=== PATIENT | female | born 1955 | race Caucasian/White ===

== ENCOUNTER 2020-04-06 10:09 | Outpatient (REF) | payer OTHER, SELFPAY | END 2020-04-06 10:10 | disposition home or self-care (01) | LOC: HO.WFDLDS 10:09 | PROVIDERS: Visit Provider Internal Medicine | DX: Z20.828 Contact with and (suspected) exposure to other viral communicable diseases (principal) | CPT/HCPCS: 87635 ==

== ENCOUNTER 2020-04-18 11:26 | Outpatient (REF) | payer OTHER, SELFPAY ==
--- NOTE | 2020-04-18 | MM_ITS ---
EXAMINATION: MM SCREENING DIGITAL BREAST TOMOSYNTHESIS, BILATERAL CLINICAL INFORMATION: Screening. Asymptomatic. The lifetime risk of breast cancer based on the Tyrer-Cuzick Model is 5%. COMPARISON: Mammography: 10/20/2015, 10/23/2014 TECHNIQUE: Digital breast tomosynthesis is performed in both the craniocaudal and mediolateral oblique views along with computer-aided detection (CAD). Synthesized 2D images are generated from the tomosynthesis. FINDINGS: The breasts are almost entirely fatty (ACR BI-RADS breast composition Category a). There are no significant masses, abnormal calcifications, or other abnormalities. There are incidental ductal secretory calcifications anterior right breast and early ductal secretory calcifications anterior left breast. The axilla and skin contours are unremarkable. MM/MM tomosynthesis screening BI IMPRESSION: No mammographic evidence of malignancy. ASSESSMENT: BI-RADS 2: Benign RECOMMENDATION: Routine annual mammography screening. This patient's information was entered into a reminder system with a target due date for their next mammogram.
[2020-04-18 13:50] LABS: MANUAL DIFF FLAG NO
[2020-04-18 13:54] LABS: Basophils Percent Auto 0.3 % (0-2); Eosinophils Absolute Auto 0.1 X10*3/uL (0.0-0.4); Eosinophils Percent Auto 2.2 % (0-4); Hematocrit 40.9 % (37-47); Hemoglobin 13.9 g/dl (12.0-16.0); Imm Gran Abs Auto 0.01 X10*3/uL (0.00-0.03); Imm Gran Pct Auto 0.2 % (0.0-0.4); Lymphocytes Absolute Auto 2.6 X10*3/uL (1.2-4.9); Lymphocytes Percent Auto 44.3 % (20-40); Mean Corpuscular Hemoglobin 31.7 pg (27.0-33.0); Mean Corpuscular Volume 93.4 fL (80-98); Mean Platelet Volume 10.6 fL (9.4-12.3); Monocytes Absolute Auto 0.6 X10*3/uL (0.1-1.2); Monocytes Percent Auto 9.3 % (2-11); Neutrophils Absolute Auto 2.6 X10*3/uL (2.0-8.3); Neutrophils Percent Auto 43.7 % (45-73); Platelet Count 191 X10*3/uL (160-400); Red Blood Count 4.38 X10*6/uL (4.20-5.50); Red Cell Distribution Width 11.9 % (11.0-16.0); White Blood Count 5.9 X10*3/uL (4.8-10.8)
[2020-04-18 14:37] LABS: Estimated Average Glucose 108 mg/dL; Hemoglobin A1c % 5.4 %
[2020-04-18 14:43] LABS: Alanine Aminotransferase 62 U/L (0-31); Albumin Level 4.2 g/dL (3.5-5.0); Alkaline Phosphatase 64 U/L (39-117); Aspartate Amino Transferase 34 U/L (5-31); Bilirubin Direct < 0.2 mg/dL (0.0-0.5); Bilirubin Total 0.3 mg/dL (0.0-1.0); Total Protein 6.9 g/dL (6.5-8.0)
[2020-04-18 14:57] LABS: Valproate 63.2 mcg/mL (50.0-100.0)
== END 2020-04-18 11:27 | disposition home or self-care (01) ==
LOC: HO.MAMMO 11:26
PROVIDERS: PCP Hospitalist; Referring Provider Nurse Practitioner Psychiatric/Mental Health; Visit Provider Hospitalist
DX: Z12.31 Encounter for screening mammogram for malignant neoplasm of breast (principal); Z79.899 Other long term (current) drug therapy
CPT/HCPCS: 36415; 77063; 77067; 80076; 80164; 83036; 85025

== ENCOUNTER 2020-05-02 10:29 | Outpatient (REF) | payer OTHER, SELFPAY | END 2020-05-02 10:30 | disposition home or self-care (01) | LOC: HO.WFDLDS 10:29 | PROVIDERS: Visit Provider Internal Medicine | DX: Z20.828 Contact with and (suspected) exposure to other viral communicable diseases (principal) | CPT/HCPCS: C9803; U0003 ==

== ENCOUNTER 2020-05-11 10:55 | Outpatient (REF) | payer OTHER, SELFPAY ==
--- NOTE | 2020-05-11 10:55 | XR_ITS ---
EXAMINATION: XR KNEE AP STANDING CLINICAL INFORMATION: Knee pain COMPARISON: October 21, 2019 and October 27, 2018 as well as May 15, 2017 TECHNIQUE: AP bilateral standing view of the knees was obtained. FINDINGS: There is stable mild to moderate narrowing of the medial joint space compartments bilaterally. No acute fracture or dislocation is evident on this single film. XR/XR knee standing BI IMPRESSION: Mild to moderate narrowing medial joint space compartments bilaterally. No significant change from study of May 15, 2017
== END 2020-05-11 10:56 | disposition home or self-care (01) ==
LOC: HO.HOSX 10:55
PROVIDERS: Visit Provider Orthopaedic Surgery
DX: M25.562 Pain in left knee (principal); M25.561 Pain in right knee; S83.242A Other tear of medial meniscus, current injury, left knee, initial encounter; W01.198A Fall on same level from slipping, tripping and stumbling with subsequent striking against other object, initial encounter; Y93.9 Activity, unspecified; Y92.007 Garden or yard of unspecified non-institutional (private) residence as the place of occurrence of the external cause; Y99.8 Other external cause status
CPT/HCPCS: 73565

== ENCOUNTER 2020-08-01 12:37 | Outpatient (REF) | payer OTHER, SELFPAY | END 2020-08-01 12:38 | disposition home or self-care (01) | LOC: HO.LAB 12:37 | PROVIDERS: Visit Provider Hospitalist | DX: N39.0 Urinary tract infection, site not specified (principal); R30.0 Dysuria | CPT/HCPCS: 87086 ==

== ENCOUNTER 2021-05-24 11:40 | Outpatient (REF) | payer MEDICARE, SELFPAY ==
[2021-05-24 14:04] LABS: Hematocrit 41.1 % (37.0-47.0); Hemoglobin 13.7 g/dl (12.0-16.0); Mean Corpuscular HGB Conc 33.3 g/dl (31.0-35.0); Mean Corpuscular Hemoglobin 30.9 pg (27.0-33.0); Mean Corpuscular Volume 92.8 fL (80.0-98.0); Mean Platelet Volume 10.5 fL (9.4-12.3); Platelet Count 197 X10*3/uL (160-400); Red Blood Count 4.43 X10*6/uL (4.20-5.50); White Blood Count 5.2 X10*3/uL (4.8-10.8)
[2021-05-24 14:30] LABS: Alanine Aminotransferase 46 U/L (0-31); Albumin Level 4.2 g/dL (3.5-5.0); Alkaline Phosphatase 68 U/L (39-117); Anion Gap 12 (12-20); Aspartate Amino Transferase 31 U/L (5-31); Bilirubin Total 0.5 mg/dL (0.0-1.0); Blood Urea Nitrogen 15 mg/dL (9-16); Calcium 9.2 mg/dL (8.4-10.2); Carbon Dioxide 29 mmol/L (22-29); Chloride 104 mmol/L (96-108); Cholesterol 242 mg/dL; Estimated Glomerular Filt Rate 60; Glucose Fasting 99 mg/dL (60-99); HDL Cholesterol 46 mg/dL; LDL Cholesterol Calculated 167 mg/dl; Potassium 4.7 mmol/L (3.3-5.1); Sodium 140 mmol/L (135-145); Total Protein 6.8 g/dL (6.5-8.0); Triglycerides 145 mg/dL
[2021-05-24 14:50] LABS: TSH reflex Free T4 1.21 uIU/mL (0.32-4.0)
== END 2021-05-24 11:41 | disposition home or self-care (01) ==
LOC: HO.WFDLDS 11:40
PROVIDERS: Absent Provider Internal Medicine; Visit Provider Hospitalist
DX: Z00.01 Encounter for general adult medical examination with abnormal findings (principal); Z20.822 Contact with and (suspected) exposure to COVID-19
CPT/HCPCS: 36415; 80053; 80061; 84443; 85027; C9803; U0003; U0005

== ENCOUNTER 2021-07-24 10:40 | Outpatient (REF) | payer MEDICARE, SELFPAY ==
[2021-07-24 13:43] LABS: MANUAL DIFF FLAG NO
[2021-07-24 13:47] LABS: Basophils Percent Auto 0.6 % (0-2); Eosinophils Absolute Auto 0.1 X10*3/uL (0.0-0.4); Eosinophils Percent Auto 2.5 % (0-4); Hematocrit 43.2 % (37.0-47.0); Hemoglobin 14.3 g/dl (12.0-16.0); Lymphocytes Absolute Auto 2.3 X10*3/uL (1.2-4.9); Mean Corpuscular HGB Conc 33.1 g/dl (31.0-35.0); Mean Corpuscular Volume 93.7 fL (80.0-98.0); Mean Platelet Volume 10.4 fL (9.4-12.3); Monocytes Absolute Auto 0.4 X10*3/uL (0.1-1.2); Monocytes Percent Auto 8.8 % (2-11); Neutrophils Percent Auto 40.1 % (45-73); Platelet Count 191 X10*3/uL (160-400); Red Blood Count 4.61 X10*6/uL (4.20-5.50); Red Cell Distribution Width 12.1 % (11.0-16.0); White Blood Count 4.9 X10*3/uL (4.8-10.8)
[2021-07-24 13:57] LABS: Alanine Aminotransferase 42 U/L (0-31); Albumin Level 4.4 g/dL (3.5-5.0); Alkaline Phosphatase 60 U/L (39-117); Anion Gap 12 (12-20); Aspartate Amino Transferase 30 U/L (5-31); Bilirubin Total 0.4 mg/dL (0.0-1.0); Blood Urea Nitrogen 21 mg/dL (9-16); Calcium 9.6 mg/dL (8.4-10.2); Carbon Dioxide 31 mmol/L (22-29); Chloride 104 mmol/L (96-108); Estimated Glomerular Filt Rate > 60; Glucose Random 106 mg/dL (60-115); Potassium 4.7 mmol/L (3.3-5.1); Sodium 142 mmol/L (135-145); Total Protein 7.3 g/dL (6.5-8.0)
[2021-07-24 14:10] LABS: Estimated Average Glucose 111 mg/dL; Hemoglobin A1c % 5.5 %
[2021-07-24 14:30] LABS: Valproate 73.2 mcg/mL (50.0-100.0)
== END 2021-07-24 10:41 | disposition home or self-care (01) ==
LOC: HO.WFDLDS 10:40
PROVIDERS: Visit Provider Nurse Practitioner Psychiatric/Mental Health
DX: Z79.899 Other long term (current) drug therapy (principal)
CPT/HCPCS: 36415; 80053; 80164; 83036; 85025

== ENCOUNTER 2021-09-14 08:00 | Outpatient (RCR) | payer MEDICARE, SELFPAY ==
[2021-09-07 09:04] VITALS: BP 122/78
== END 2022-05-06 13:36 | disposition home or self-care (01) ==
LOC: HO.PT 08:00
PROVIDERS: PCP Hospitalist; Visit Provider Hospitalist
DX: H81.13 Benign paroxysmal vertigo, bilateral (principal)
CPT/HCPCS: 95992; 97161; 97535

== ENCOUNTER 2022-02-27 11:00 | Outpatient (REF) | payer MEDICARE, SELFPAY ==
--- NOTE | ~2022-02-27 | XR_ITS ---
EXAMINATION: XR FOREARM AND HAND AND WRIST, RIGHT CLINICAL INFORMATION: Pain. COMPARISON: None. TECHNIQUE: AP and lateral views of the right forearm were obtained. 4 views of the right hand and wrist. FINDINGS: There is no evidence of acute fracture or dislocation of the right forearm. There is some soft tissue swelling seen about the dorsum of the ulna. No right elbow effusion is identified. There is no evidence of acute fracture or dislocation of the right wrist. Right wrist joint spaces are maintained. No destructive bony lesions are identified. There is no evidence of acute fracture or dislocation of the right hand. Right hand joints are maintained. There is a 2 mm bony density seen about the ulnar aspect of the 2nd distal interphalangeal joint, likely related to previous trauma. XR/XR hand wrist RT IMPRESSION: No evidence of acute fracture or dislocation of the right forearm, wrist, or hand.
--- NOTE | ~2022-02-27 | XR_ITS ---
EXAMINATION: XR FOREARM AND HAND AND WRIST, RIGHT CLINICAL INFORMATION: Pain. COMPARISON: None. TECHNIQUE: AP and lateral views of the right forearm were obtained. 4 views of the right hand and wrist. FINDINGS: There is no evidence of acute fracture or dislocation of the right forearm. There is some soft tissue swelling seen about the dorsum of the ulna. No right elbow effusion is identified. There is no evidence of acute fracture or dislocation of the right wrist. Right wrist joint spaces are maintained. No destructive bony lesions are identified. There is no evidence of acute fracture or dislocation of the right hand. Right hand joints are maintained. There is a 2 mm bony density seen about the ulnar aspect of the 2nd distal interphalangeal joint, likely related to previous trauma. XR/XR forearm RT 2V IMPRESSION: No evidence of acute fracture or dislocation of the right forearm, wrist, or hand.
== END 2022-02-27 11:01 | disposition home or self-care (01) ==
LOC: HO.XRAY 11:00
PROVIDERS: PCP Hospitalist; Visit Provider Hospitalist
DX: M79.631 Pain in right forearm (principal); M25.531 Pain in right wrist; W19.XXXA Unspecified fall, initial encounter
CPT/HCPCS: 73090; 73110; 73130

== ENCOUNTER 2022-07-31 11:18 | Outpatient (REF) | payer MEDICARE, SELFPAY ==
[2022-07-31 14:33] LABS: Appearance Urine Clear; Color Urine Yellow; Glucose Urine UA Negative (Negative); Leukocyte Esterase Urine Small (1+) (Negative); Nitrite Urine Negative (Negative); Specific Gravity - Urine <= 1.005 (1.005-1.025); UMIC TRIGGER UA YES; Urine Blood Negative (Negative); Urine Ketones Negative (Negative); Urine Protein Negative (Neg-Trace)
[2022-07-31 14:45] LABS: Bacteria Urine None Seen (None Seen); Hyaline Casts Urine 0-2 /LPF (0-2); RBC Urine 0-2 /HPF (0-2); WBC Urine 0-5 /HPF (0-5)
[2022-07-31 14:51] LABS: Hematocrit 43.1 % (37.0-47.0); Hemoglobin 14.4 g/dl (12.0-16.0); Mean Corpuscular HGB Conc 33.4 g/dl (31.0-35.0); Mean Corpuscular Hemoglobin 31.2 pg (27.0-33.0); Mean Corpuscular Volume 93.5 fL (80.0-98.0); Platelet Count 186 X10*3/uL (160-400); Red Blood Count 4.61 X10*6/uL (4.20-5.50); Red Cell Distribution Width 12.4 % (11.0-16.0); White Blood Count 6.1 X10*3/uL (4.8-10.8)
[2022-07-31 15:19] LABS: Alanine Aminotransferase 50 U/L (0-31); Albumin Level 4.3 g/dL (3.5-5.0); Alkaline Phosphatase 64 U/L (39-117); Anion Gap 13 (12-20); Aspartate Amino Transferase 33 U/L (5-31); Bilirubin Total 0.5 mg/dL (0.0-1.0); Blood Urea Nitrogen 13 mg/dL (9-16); Calcium 9.5 mg/dL (8.4-10.2); Carbon Dioxide 31 mmol/L (22-29); Chloride 102 mmol/L (96-108); Cholesterol 274 mg/dL; Estimated Glomerular Filt Rate > 60; Glucose Fasting 94 mg/dL (60-99); HDL Cholesterol 50 mg/dL; LDL Cholesterol Calculated 186 mg/dl; Sodium 141 mmol/L (135-145); Total Protein 7.2 g/dL (6.5-8.0); Triglycerides 192 mg/dL
[2022-07-31 15:27] LABS: TSH reflex Free T4 1.39 uIU/mL (0.32-4.0)
[2022-07-31 15:31] LABS: Valproate 81.5 mcg/mL (50.0-100.0)
[2022-08-02 08:24] LABS: CA-125 8 U/mL (<35)
== END 2022-07-31 11:19 | disposition home or self-care (01) ==
LOC: HO.WFDLDS 11:18
PROVIDERS: Visit Provider Hospitalist
DX: Z00.00 Encounter for general adult medical examination without abnormal findings (principal); N95.0 Postmenopausal bleeding; Z79.899 Other long term (current) drug therapy
CPT/HCPCS: 36415; 80053; 80061; 80164; 81001; 84443; 85027; 86304

== ENCOUNTER 2023-07-11 09:16 | Outpatient (AMB) | payer MEDICARE, SELFPAY ==
--- NOTE | 2023-07-11 09:17 | MHC.OFFWIV ---
Intake Vital Signs 07/11/23 09:18 Height 5 ft 4 in Weight 259 lb 6 oz BMI 44.5 BP 122/72 Blood Pressure Location Lt brachial Position Sitting Pulse 80 Pulse Source Pulse Oximeter Temp 97.6 F Temp Source Oral Pulse Oximetry (%) 94 Intake Visit Reasons: EP Work clearance/had the flu Intake Note: pt is here for c/o fatigue and not feeling 100%, pt stated she had the flu and work note to go back to work for friday Patient Tobacco Use Status: Never used Tobacco Allergies prochlorperazine [From COMPAZINE] Allergy (Severe, Verified 07/11/23 09:19) THROAT SWELLS benztropine [From COGENTIN] Allergy (Intermediate, Verified 07/11/23 09:19) RASH glucosamine [GLUCOSAMINE] Allergy (Intermediate, Verified 07/11/23 09:19) RASH latex [LATEX] Allergy (Intermediate, Verified 07/11/23 09:19) RED RASH,ITCHINESS Adhesive Bandages Allergy (Intermediate, Uncoded 06/26/23 14:27) rash Do you need a note to return to daycare/school/sports/work: Yes HPI HPI Comments History of Present Illness Details 68 y/o female presents to walk in clinic today for work clearance. Pt had Influenza. Reports no fevers for 72 hours. Denies any Respiratory symptoms. Reports some mild dizziness and fatigue. PFSH Medical History Lumbar arthropathy Internal derangement of left knee Primary osteoarthritis of knees, bilateral Internal derangement of right knee Cholelithiasis Surgical History History of bilateral cataract extraction History of laparoscopic cholecystectomy LAP-BAND surgery status History of section Family History Father COPD (chronic obstructive pulmonary disease) Diabetes Kidney problem Mother CVD (cardiovascular disease) Son Depression H/O ETOH abuse Drug addiction Other Mental health disorder Substance use disorder Social History Housing: House Alcohol intake: current Alcohol intake frequency: holidays/special occasions only Patient Tobacco Use Status: Never used Tobacco e-Cigarette/Vaping Use: Never Used Second Hand Smoke Exposure: No service: No Current occupational status: unemployed Current occupation: right handed Current occupational exposures/hazards: No Cognitive needs: No Hearing needs: No Vision needs: No Review of Systems Const All systems reviewed & are unremarkable except as noted in HPI and below Physical Exam Vital Signs: Last Vital Signs Temp 97.6 F 07/11/23 09:18 Pulse 80 07/11/23 09:18 BP 122/72 07/11/23 09:18 Pulse Ox 94 07/11/23 09:18 BMI result Body Mass Index 44.5 Const General: comfortable and no acute distress HEENT Head: Yes normocephalic Ears: external ears normal and TM's normal bilaterally General nose exam: Normal nasal mucous membranes and turbinates present and No nasal discharge present Face and sinus: Yes sinuses nontender Mouth: oropharynx normal and moist mucous membranes Throat: Yes posterior oropharynx normal Resp Effort & Inspection: normal respiratory effort Auscultation: clear to auscultation bilaterally Cardio Rate: regular rate Rhythm: regular rhythm Assessment & Plan Assessment & Plan (1) Encounter for examination and observation for other specified reasons: Code(s): Z04.89 - Encounter for examination and observation for other specified reasons Plan: Per ROS today patient is cleared to return to work with no restrictions. Coding Level of Care Code Est Pt Level 2 (07807) Diagnoses Encounter for examination and observation for other specified reasons Z04.89 Time Spent (min) 10
[2023-07-11 09:18] VITALS: BP 122/72; PULSE 80; TEMP 36.4; O2SAT 94; BMI 44.5
== END 2023-07-11 09:54 | disposition home or self-care (01) ==
PROVIDERS: PCP Family Medicine; Visit Provider Nurse Practitioner Family
DX: R53.83 Other fatigue (principal); Z04.89 Encounter for examination and observation for other specified reasons
CPT/HCPCS: 99212

== ENCOUNTER 2023-07-11 09:31 | Outpatient (REF) | payer MEDICARE, SELFPAY ==
--- NOTE | ~2023-07-11 | XR_ITS ---
EXAMINATION: XR HIP, LEFT CLINICAL INFORMATION: Pain. COMPARISON: None available. TECHNIQUE: AP and frog-leg lateral views of the left hip. FINDINGS: No fracture. Alignment is anatomic. Hip joint space is maintained. Soft tissues are unremarkable. XR/XR hip LT min 2V IMPRESSION: Normal left hip.
[2023-07-11 13:08] LABS: MANUAL DIFF FLAG NO
[2023-07-11 13:40] LABS: Basophils Percent Auto 0.7 % (0-2); Eosinophils Absolute Auto 0.1 X10*3/uL (0.0-0.4); Eosinophils Percent Auto 2.4 % (0-4); Hematocrit 42.9 % (37.0-47.0); Hemoglobin 14.6 g/dl (12.0-16.0); Imm Gran Abs Auto 0.01 X10*3/uL (0.00-0.03); Imm Gran Pct Auto 0.2 % (0.0-0.4); Lymphocytes Absolute Auto 2.8 X10*3/uL (1.2-4.9); Lymphocytes Percent Auto 51.6 % (20-40); Mean Corpuscular Hemoglobin 31.2 pg (27.0-33.0); Mean Corpuscular Volume 91.7 fL (80.0-98.0); Mean Platelet Volume 10.2 fL (9.4-12.3); Monocytes Absolute Auto 0.5 X10*3/uL (0.1-1.2); Monocytes Percent Auto 9.6 % (2-11); Neutrophils Absolute Auto 1.9 x10*3/uL (2.0-8.3); Neutrophils Percent Auto 35.5 % (45-73); Platelet Count 222 X10*3/uL (160-400); Red Blood Count 4.68 X10*6/uL (4.20-5.50); Red Cell Distribution Width 12.2 % (11.0-16.0); White Blood Count 5.4 X10*3/uL (4.8-10.8)
[2023-07-11 13:53] LABS: Appearance Urine Clear; Color Urine Yellow; Glucose Urine UA Negative (Negative); Leukocyte Esterase Urine Negative (Negative); Nitrite Urine Negative (Negative); UMIC TRIGGER UA YES; Urine Blood Small (1+) (Negative); Urine Ketones Negative (Negative); Urine Protein Negative (Neg-Trace)
[2023-07-11 14:02] LABS: Bacteria Urine None Seen (None Seen); Hyaline Casts Urine 0-2 /LPF (0-2); WBC Urine 0-5 /HPF (0-5)
[2023-07-11 14:22] LABS: Alanine Aminotransferase 68 U/L (0-31); Alkaline Phosphatase 65 U/L (39-117); Anion Gap 12 (12-20); Aspartate Amino Transferase 40 U/L (5-31); Bilirubin Total 0.4 mg/dL (0.0-1.0); Blood Urea Nitrogen 13 mg/dL (9-16); Calcium 9.2 mg/dL (8.4-10.2); Carbon Dioxide 28 mmol/L (22-29); Chloride 104 mmol/L (96-108); Cholesterol 232 mg/dL (<200); Estimated Glomerular Filt Rate > 60; Glucose Fasting 97 mg/dL (60-99); HDL Cholesterol 44 mg/dL (>40); LDL Cholesterol Calculated 163 mg/dL (<100); Potassium 4.3 mmol/L (3.3-5.1); Sodium 140 mmol/L (135-145); TSH reflex Free T4 1.57 uIU/mL (0.32-4.0); Total Protein 7.1 g/dL (6.5-8.0); Triglycerides 129 mg/dL (<150)
[2023-07-11 14:31] LABS: Erythrocyte Sedimentation Rate 6 MM/HR (0-20)
[2023-07-11 15:18] LABS: Creatinine Urine 152.28 mg/dL; Microalbum/Creatinine Ratio Ur 5.2 ug/mg cr (<30)
== END 2023-07-11 09:32 | disposition home or self-care (01) ==
LOC: HO.HMGCX 09:31
PROVIDERS: PCP Family Medicine; Visit Provider Family Medicine
DX: M25.552 Pain in left hip (principal); I10 Essential (primary) hypertension; Z00.00 Encounter for general adult medical examination without abnormal findings
CPT/HCPCS: 36415; 73502; 80053; 80061; 81001; 81003; 82043; 82570; 84443; 85025; 85652

== ENCOUNTER 2023-08-21 11:36 | Outpatient (AMB) | payer MEDICARE, SELFPAY ==
[2023-08-21 11:38] VITALS: BP 134/80; BMI 44.6
--- NOTE | 2023-08-21 11:38 | A.OFFVIS_ITS ---
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 (Sarah) Allergies prochlorperazine [From COMPAZINE] Allergy (Severe, Verified 08/21/23 11:41) THROAT SWELLS benztropine [From COGENTIN] Allergy (Intermediate, Verified 08/21/23 11:41) RASH glucosamine [GLUCOSAMINE] Allergy (Intermediate, Verified 08/21/23 11:41) RASH latex [LATEX] Allergy (Intermediate, Verified 08/21/23 11:41) RED RASH,ITCHINESS Adhesive Bandages Allergy (Intermediate, Uncoded 08/21/23 11:41) rash Is last menstrual period known: No Post menopausal: Yes Patient : No HPI HPI Comments History of Present Illness Details Presenting with history of postmenopausal bleeding initially started in 06/27 the patient had an ultrasound endometrial stripe was 1 cm, there was no no follow-up afterwards. The bleeding stopped for 2 years and over the last 3 years has been recurrent according to the patient Last co testing was in 05/26 was negative PFSH Medical History (Updated 08/21/23 @ 12:10 by Nic Doran MD) Dysplasia of cervix, low grade (EYAD 1) Hx of ectopic Lumbar arthropathy Internal derangement of left knee Primary osteoarthritis of knees, bilateral Internal derangement of right knee Cholelithiasis Surgical History (Updated 08/21/23 @ 11:43 by BHAVNA Partida) Hx of unilateral salpingectomy History of bilateral cataract extraction History of laparoscopic cholecystectomy LAP-BAND surgery status History of section Family History Father COPD (chronic obstructive pulmonary disease) Diabetes Kidney problem Mother CVD (cardiovascular disease) Son Depression H/O ETOH abuse Drug addiction Other Mental health disorder Substance use disorder Social History Housing: House Alcohol intake: current Alcohol intake frequency: holidays/special occasions only Patient Tobacco Use Status: Never used Tobacco e-Cigarette/Vaping Use: Never Used Second Hand Smoke Exposure: No Patient : No service: No Current occupational status: unemployed Current occupation: right handed Current occupational exposures/hazards: No Cognitive needs: No Hearing needs: No Vision needs: No Female Reproductive History Menstrual Age of Menarche: 13 control method: none Total pregnancies: 4 Full term: 2 Number of Living Children: 2 Ectopics: 2 Date of last pap smear: 05/12/18 (negative) Date of Mammogram: 04/18/20 Review of Systems Const All systems reviewed & are unremarkable except as noted in HPI and below Physical Exam Vital Signs: Last Vital Signs BP 134/80 08/21/23 11:38 BMI result Body Mass Index 44.6 General: Yes no CVA tenderness External Female Exam: normal external appearance and normal appearance of the urethra Speculum Exam - Vagina: normal appearance of the vagina, normal palpation, no lesions and no masses Speculum Exam - Cervix: normal appearance of the cervix, normal palpation, no lesions, no masses and nontender Bimanual exam- vagina & uterus: normal bimanual exam, normal palpation, uterine size normal, normal palpation, uterine shape normal, No Cervical tenderness present and non-tender Bimanual Exam- Adnexa, other: normal adnexae Back/Spine/Pelvis Back: no CVA tenderness Office Procedures Endometrial Biopsy Details: The patient was counseled regarding the indication and benefits of endometrial sampling to rule out endometrial pathology including not limited to endometrial hyperplasia or endometrial cancer and others; The alternatives (Either do nothing vs. hysteroscopy D&C) & the risks were discussed with the patient including but not limited: pain, uterine perforation, bleeding, infection, possible injury to bladder, bowel, ureter, possible need for blood transfusion with all its possible risks. The patient verbalized understanding all questions answered and signed consent. The patient was placed into the dorsal lithotomy position; a speculum was inserted in the vagina. Using aseptic technique for the procedure, the cervix was cleansed with Betadine. The anterior lip of the cervix was grasped with a single tooth tenaculum. The uterus was sounded to 7 cm with a 4 mm Pipelle was used. Tissues samples were obtained and placed in formalin, in a patient labeled container and sent to the pathology department. At the end of the procedure, there was minimal bleeding noted The patient tolerated the procedure well and was discharged in good condition with the following instructions: Nothing in the vagina until the bleeding stops. No sex until the bleeding stops, to call if any of the following occurs: fever (>100.4), flu-like symptoms, abdominal pain, heavy bleeding, four smelling vaginal discharge. The patient was instructed to schedule a Follow up appointment in 2 weeks to discuss pathology results of the biopsy and treatment options. This note was generated with a voice recognition program. Some errors may have been overlooked during the review of this note. Sometimes these errors may affect the content or meaning of a given sentence. [id number] Biopsy Assessment & Plan Assessment & Plan (1) Post-menopausal bleeding: Code(s): N95.0 - Postmenopausal bleeding Plan: Discussed with the patient the differential diagnosis of post menopausal bleeding with normal pelvic exam including but not limited to, endometrial hyperplasia, cancer, polyps and other causes; co testing done, recommended EMB and pelvic ultrasound. Ultrasound ordered, EMB done, see procedure note. Instructions given the patient to schedule a 2 week follow-up appointment. All questions answered, the patient verbalized understanding and agreed with the p ryan. Orders: Orders AMB Endometrial Biopsy Today N95.0 - Postmenopausal bleeding US pelvic and transvaginal Today N95.0 - Postmenopausal bleeding Coding Level of Care Code New Pt Level 3 (07375) Procedure Only Diagnoses Post-menopausal bleeding N95.0 CPT Codes Endometrial Biopsy - CPT: 72279-[id number] Biopsy ([id number])
== END 2023-08-21 13:10 | disposition home or self-care (01) ==
LOC: HO.HWS 11:36
PROVIDERS: PCP Family Medicine; Visit Provider Obstetrics & Gynecology
DX: N95.0 Postmenopausal bleeding (principal)
CPT/HCPCS: 58100; 99203

== ENCOUNTER 2023-08-21 11:36 | Outpatient (REF) | payer MEDICARE, SELFPAY ==
[2023-08-30 09:18] LABS: HPV mRNA E6/E7 rflx Not Detected (Not Detected)
== END 2023-08-21 11:37 | disposition home or self-care (01) ==
LOC: HO.LNP 11:36
PROVIDERS: PCP Family Medicine; Visit Provider Obstetrics & Gynecology
DX: N95.0 Postmenopausal bleeding (principal); N93.9 Abnormal uterine and vaginal bleeding, unspecified
CPT/HCPCS: 58100; 87624; 88142; 88305; 99202

== ENCOUNTER 2023-08-26 12:57 | Outpatient (REF) | payer MEDICARE, SELFPAY ==
--- NOTE | ~2023-08-26 | US_ITS ---
EXAM: Pelvic Ultrasound CLINICAL INDICATION: Postmenopausal bleeding COMPARISON: Pelvic ultrasound 06/22/2018 TECHNIQUE: The pelvis was evaluated using transabdominal and transvaginal imaging. Today's examination is limited secondary to patient body habitus and overlying bowel gas. FINDINGS: The uterus measures 6.8 x 4.2 x 4.9 cm in longitudinal by AP by transverse dimension. Thickened endometrium measuring up to 1.4 cm (previously 1 cm). Cannot exclude an ill-defined approximately 2 cm fibroid within the anterior fundus. The right ovary was not visualized. The left ovary is surgically absent. There are no abnormal adnexal masses. There is no free fluid in the pelvis. US/US pelvic and transvaginal IMPRESSION: Thickened endometrium measuring up to 1.4 cm (previously 1 cm). Cannot exclude an ill-defined approximately 2 cm fibroid within the anterior fundus. Direct inspection with biopsy may be warranted.
[2023-08-26 14:38] LABS: MANUAL DIFF FLAG NO
[2023-08-26 15:42] LABS: Basophils Percent Auto 0.5 % (0-2); Eosinophils Absolute Auto 0.1 X10*3/uL (0.0-0.4); Eosinophils Percent Auto 1.7 % (0-4); Hemoglobin 13.9 g/dl (12.0-16.0); Imm Gran Abs Auto 0.01 X10*3/uL (0.00-0.03); Imm Gran Pct Auto 0.2 % (0.0-0.4); Lymphocytes Absolute Auto 2.9 X10*3/uL (1.2-4.9); Lymphocytes Percent Auto 44.5 % (20-40); Mean Corpuscular HGB Conc 33.9 g/dl (31.0-35.0); Mean Corpuscular Hemoglobin 31.1 pg (27.0-33.0); Mean Corpuscular Volume 91.7 fL (80.0-98.0); Mean Platelet Volume 10.3 fL (9.4-12.3); Monocytes Absolute Auto 0.6 X10*3/uL (0.1-1.2); Monocytes Percent Auto 9.2 % (2-11); Neutrophils Absolute Auto 2.9 x10*3/uL (2.0-8.3); Neutrophils Percent Auto 43.9 % (45-73); Platelet Count 197 X10*3/uL (160-400); Red Blood Count 4.47 X10*6/uL (4.20-5.50); Red Cell Distribution Width 12.3 % (11.0-16.0); White Blood Count 6.5 X10*3/uL (4.8-10.8)
[2023-08-26 15:47] LABS: Appearance Urine Clear; Color Urine Yellow; Glucose Urine UA Negative (Negative); Leukocyte Esterase Urine Negative (Negative); Nitrite Urine Negative (Negative); Specific Gravity - Urine 1.025 (1.005-1.025); UMIC TRIGGER UA YES; Urine Blood Moderate (2+) (Negative); Urine Ketones Trace mg/dL (Negative); Urine Protein Negative (Neg-Trace)
[2023-08-26 15:51] LABS: Estimated Average Glucose 108 mg/dL; Hemoglobin A1c % 5.4 % (<6.0)
[2023-08-26 16:05] LABS: Alanine Aminotransferase 56 U/L (0-31); Albumin Level 4.3 g/dL (3.5-5.0); Alkaline Phosphatase 67 U/L (39-117); Anion Gap 13 (12-20); Aspartate Amino Transferase 36 U/L (5-31); Bilirubin Total 0.5 mg/dL (0.0-1.0); Blood Urea Nitrogen 13 mg/dL (9-16); Calcium 9.4 mg/dL (8.4-10.2); Carbon Dioxide 29 mmol/L (22-29); Chloride 104 mmol/L (96-108); Cholesterol 253 mg/dL (<200); Estimated Glomerular Filt Rate > 60; Glucose Random 81 mg/dL (60-115); HDL Cholesterol 53 mg/dL (>40); LDL Cholesterol Calculated 164 mg/dL (<100); Potassium 4.6 mmol/L (3.3-5.1); Sodium 141 mmol/L (135-145); Total Protein 7.2 g/dL (6.5-8.0); Triglycerides 180 mg/dL (<150)
[2023-08-26 16:35] LABS: Bacteria Urine None Seen (None Seen); Hyaline Casts Urine 0-2 /LPF (0-2); Squamous Epithelial Cell Urine 0-2 /HPF (0-2); WBC Urine 0-5 /HPF (0-5)
== END 2023-08-26 12:58 | disposition home or self-care (01) ==
LOC: HO.US 12:57
PROVIDERS: Absent Provider Nurse Practitioner Psychiatric/Mental Health; PCP Family Medicine; Visit Provider Obstetrics & Gynecology
DX: N95.0 Postmenopausal bleeding (principal); Z79.899 Other long term (current) drug therapy
CPT/HCPCS: 36415; 76830; 76856; 80053; 80061; 81001; 83036; 85025

== ENCOUNTER 2023-08-27 12:33 | Outpatient (AMB) | payer MEDICARE, SELFPAY ==
[2023-08-27 12:33] VITALS: BP 150/90; BMI 44.6
--- NOTE | 2023-08-27 12:33 | MHC.OFFVIS ---
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 Allergies prochlorperazine [From COMPAZINE] Allergy (Severe, Verified 08/27/23 12:34) THROAT SWELLS benztropine [From COGENTIN] Allergy (Intermediate, Verified 08/27/23 12:34) RASH glucosamine [GLUCOSAMINE] Allergy (Intermediate, Verified 08/27/23 12:34) RASH latex [LATEX] Allergy (Intermediate, Verified 08/27/23 12:34) RED RASH,ITCHINESS Adhesive Bandages Allergy (Intermediate, Uncoded 08/21/23 11:41) rash Is last menstrual period known: Yes Last menstrual period: 04/06/20 Post menopausal: No Patient : No Do you need a note to return to daycare/school/sports/work: Yes (for surgery on friday) HPI HPI Comments History of Present Illness Details The patient is presenting after endometrial biopsy. The patient has no complaints, no vaginal bleeding, no feverishness chills or abdominal pain. Endometrial biopsy pathology showed the following: Endometrium, biopsy: Superficial fragments of weakly proliferative endometrium with stromal breakdown; fragment with features of endometrial polyp; no atypia identified PFSH Medical History Dysplasia of cervix, low grade (EYAD 1) Hx of ectopic Lumbar arthropathy Internal derangement of left knee Primary osteoarthritis of knees, bilateral Internal derangement of right knee Cholelithiasis Surgical History Hx of unilateral salpingectomy History of bilateral cataract extraction History of laparoscopic cholecystectomy LAP-BAND surgery status History of section Family History Father COPD (chronic obstructive pulmonary disease) Diabetes Kidney problem Mother CVD (cardiovascular disease) Son Depression H/O ETOH abuse Drug addiction Other Mental health disorder Substance use disorder Social History Housing: House Alcohol intake: current Alcohol intake frequency: holidays/special occasions only Patient Tobacco Use Status: Never used Tobacco e-Cigarette/Vaping Use: Never Used Second Hand Smoke Exposure: No service: No Current occupational status: unemployed Current occupation: right handed Current occupational exposures/hazards: No Cognitive needs: No Hearing needs: No Vision needs: No Female Reproductive History Menstrual Age of Menarche: 13 Date of last menstrual period: 04/06/20 Total pregnancies: 2 Full term: 2 Review of Systems Card Reports as per HPI and Reports no additional complaints Resp Reports as per HPI and Reports no additional complaints GI Reports as per HPI and Reports no additional complaints Reports as per HPI Physical Exam Vital Signs: BMI result Body Mass Index 44.6 Const General: cooperative, healthy appearing and comfortable Chest Chest palpation & inspection: normal inspection of the chest and normal palpation of entire chest wall Breast/axilla inspection: normal inspection of the breasts and normal inspection of the axillae Breast/axilla palpation: normal palpation of the breasts, normal palpation of the axillae and no axillary lymphadenopathy Resp Effort & Inspection: normal respiratory effort Auscultation: clear to auscultation bilaterally Percussion: percussion normal Cardio Palpation: normal PMI Rate: regular rate Rhythm: regular rhythm Heart sounds: no murmurs and no rubs Peripheral pulses: Peripheral pulses 2+ throughout GI Inspection: Yes normal to inspection Palpation (GI): Soft to palpation, nontender, no guarding, not rigid and No hepatosplenomegaly present Percussion: Yes normal to percussion Auscultation: normal bowel sounds Rectal Exam - Female: deferred Assessment & Plan Assessment & Plan (1) Post-menopausal bleeding: Comment: Endometrial polyp on EMB Weakly proliferative endometrium in menopause Code(s): N95.0 - Postmenopausal bleeding Plan: Discussed with the patient the results of the pathology showing endometrial polyp on EMB, and weakly proliferative endometrium recommended hysteroscopy D&C possible polypectomy/myomectomy. Discussed with the patient the sensitivity, specificity, positive and negative predictive value, of endometrial biopsy in detecting endometrial pathology including but not limited to endometrial hyperplasia, cancer and other pathology; in addition discussed the patient the pathology of the endometrium in post menopause is associated with an increase in the risk of endometrial hyperplasia and malignancy in patient with preferred of endometrial pathology in menopause. Recommended to the patient progesterone treatment , levo norgestrel IUD for p.o. progestins in addition to repeat endometrial biopsy every 3 months for a year. All pros and cons, risks and benefits of each were discussed with the patient. The patient decided to proceed with Mirena IUD. so a more detailed discussion about it was conducted including mechanism of action, risks (uterine perforation, infection, injury to bladder, bowel, displacement, increase in the risk of breast cancer and others) benefits (decrease the risk of future endometrial hyperplasia and carcinoma of the endometrium ...). in addition , recommended repeat endometrial biopsy every 3 months for 1 year. Will proceed with hysteroscopy D&C polypectomy check the results rule out hyperplasia or malignancy and schedule IUD insertion. All questions answered, the patient verbalized understanding Discussed with the patient the procedure , all benefits and risks including but not limited to inability to complete the procedure , insufficient endometrial tissue for a complete evaluation of the endometrial cavity , bleeding, infection, possible need for blood transfusion with all its risk ( HIV,syphilis, Hepatitis, anaphylaxis shock, others..), injury to bladder, rectum, possible need for laparoscopy/laparotomy or hysterectomy. The patient verbalized understanding and signed the consent. Instructions given the patient to schedule a 2 week postoperative appointment Coding Level of Care Code Est Pt Level 3 (09753) Diagnoses Post-menopausal bleeding N95.0
== END 2023-08-27 13:01 | disposition home or self-care (01) ==
LOC: HO.HWS 12:33
PROVIDERS: PCP Family Medicine; Visit Provider Obstetrics & Gynecology
DX: N95.0 Postmenopausal bleeding (principal)
CPT/HCPCS: 99213

== ENCOUNTER → 2023-08-27 12:33 | Outpatient (BNVA) | payer MEDICARE, SELFPAY | PROVIDERS: PCP Family Medicine; Visit Provider Obstetrics & Gynecology | DX: Z01.818 Encounter for other preprocedural examination (principal); N95.0 Postmenopausal bleeding; N87.0 Mild cervical dysplasia | CPT/HCPCS: 99212 ==

== ENCOUNTER 2023-09-09 15:48 | Outpatient (AMB) | payer MEDICARE, SELFPAY ==
--- NOTE | 2023-09-09 15:51 | MHC.OFFVIS ---
Intake Vital Signs 09/09/23 15:52 Height 5 ft 4 in Weight 257 lb 15.053 oz BMI 44.3 BP 142/92 H Intake Visit Reasons: follow up Allergies prochlorperazine [From COMPAZINE] Allergy (Severe, Verified 08/27/23 12:34) THROAT SWELLS benztropine [From COGENTIN] Allergy (Intermediate, Verified 08/27/23 12:34) RASH glucosamine [GLUCOSAMINE] Allergy (Intermediate, Verified 08/27/23 12:34) RASH latex [LATEX] Allergy (Intermediate, Verified 08/27/23 12:34) RED RASH,ITCHINESS Adhesive Bandages Allergy (Intermediate, Uncoded 08/21/23 11:41) rash HPI HPI Comments History of Present Illness Details Presenting to discuss the procedure, hysteroscopy D&C, possible polypectomy/myomectomy and Mirena IUD insertion for EMB pathology showing the following: Superficial fragments of weakly proliferative endometrium with stromal breakdown; fragment with features of endometrial polyp; no atypia identified Co testing is negative PFSH Medical History Dysplasia of cervix, low grade (EYAD 1) Hx of ectopic Lumbar arthropathy Internal derangement of left knee Primary osteoarthritis of knees, bilateral Internal derangement of right knee Cholelithiasis Surgical History Hx of unilateral salpingectomy History of bilateral cataract extraction History of laparoscopic cholecystectomy LAP-BAND surgery status History of section Family History Father COPD (chronic obstructive pulmonary disease) Diabetes Kidney problem Mother CVD (cardiovascular disease) Son Depression H/O ETOH abuse Drug addiction Other Mental health disorder Substance use disorder Social History Housing: House Alcohol intake: current Alcohol intake frequency: holidays/special occasions only Patient Tobacco Use Status: Never used Tobacco e-Cigarette/Vaping Use: Never Used Second Hand Smoke Exposure: No service: No Current occupational status: unemployed Current occupation: right handed Current occupational exposures/hazards: No Cognitive needs: No Hearing needs: No Vision needs: No Female Reproductive History Menstrual Age of Menarche: 13 Review of Systems Const All systems reviewed & are unremarkable except as noted in HPI and below Reports as per HPI and Reports no additional complaints GI Reports no additional complaints Reports no additional complaints Physical Exam Vital Signs: Last Vital Signs BP 142/92 H 09/09/23 15:52 BMI result Body Mass Index 44.3 Assessment & Plan Assessment & Plan (1) Post-menopausal bleeding: Comment: Endometrial polyp on EMB Weakly proliferative endometrium in menopause Code(s): N95.0 - Postmenopausal bleeding Plan: Will proceed with hysteroscopy D&C possible polypectomy/myomectomy with Mirena IUD insertion. Discussed with the patient the procedure , all benefits and risks including but not limited to inability to complete the procedure , insufficient endometrial tissue for a complete evaluation of the endometrial cavity , bleeding, infection, possible need for blood transfusion with all its risk ( HIV,syphilis, Hepatitis, anaphylaxis shock, others..), injury to bladder, rectum, possible need for laparoscopy/laparotomy or hysterectomy. In addition discussed with the patient regarding Mirena IUD the following: It is mechanism of action, risks (uterine perforation, infection, injury to bladder, bowel, displacement, and others) benefits (hypo menorrhea, amenorrhea, ...). The patient verbalized understanding and signed the consent. Instructions given the patient to schedule a 2 week postoperative appointment Coding Level of Care Code Est Pt Level 3 (15313) Diagnoses Post-menopausal bleeding N95.0
[2023-09-09 15:52] VITALS: BP 142/92; BMI 44.3
== END 2023-09-09 16:12 | disposition home or self-care (01) ==
LOC: HO.HWS 15:48
PROVIDERS: PCP Family Medicine; Visit Provider Obstetrics & Gynecology
DX: N95.0 Postmenopausal bleeding (principal)
CPT/HCPCS: 99213

== ENCOUNTER → 2023-09-09 15:48 | Outpatient (BNVA) | payer MEDICARE, SELFPAY | PROVIDERS: PCP Family Medicine; Visit Provider Obstetrics & Gynecology | DX: N95.0 Postmenopausal bleeding (principal) | CPT/HCPCS: 99212 ==

== ENCOUNTER 2023-09-19 08:56 | Day surgery (SDC) | payer MEDICARE, SELFPAY ==
[2023-09-16 08:58] VITALS: BMI 44.1
--- NOTE | 2023-09-17 11:42 | HO.ANESPROP2 ---
Documented by User: Park Yuen NP 09/17/23 11:43 HPI - Anesthesia Eval Consult details Narrative: 68yo F for D&C Hysteroscopy, possible myomectomy/polypectomy,Mirena Insertion PMFSH Active Problems Active Problems: All Active Problems Venous insufficiency of right lower extremity (Acute) Screening for osteoporosis (Acute) Adult general medical examination (Acute) Breast cancer screening by mammogram (Acute) Screen for colon cancer (Acute) Elevated liver enzymes (Acute) Bipolar disorder (Acute) Screening for cervical cancer (Acute) Asthma (Acute) Left hip pain (Acute) GERD (gastroesophageal reflux disease) (Acute) Hyperlipidemia (Acute) High cholesterol (Acute) Post-menopausal bleeding (Acute) Normal physical exam (Acute) Knee pain, left anterior (Acute) Right forearm pain (Acute) Fall (Acute) Right wrist pain (Acute) BPV (benign positional vertigo) (Acute) Obesity (Acute) Primary osteoarthritis of knees, bilateral (Acute) Seasonal allergies (Acute) Abnormal physical evaluation (Acute) Conjunctivitis (Acute) Overactive bladder (Acute) Diverticulitis (Acute) UTI (urinary tract infection) (Acute) Dysuria (Acute) Right sciatic nerve pain (Acute) Contusion, knee (Acute) Muscle strain (Acute) Concussion (Acute) Well adult exam (Acute) Past Medical History Medical History Dysplasia of cervix, low grade (EYAD 1) Hx of ectopic Lumbar arthropathy Internal derangement of left knee Primary osteoarthritis of knees, bilateral Internal derangement of right knee Cholelithiasis Family History Family History Father COPD (chronic obstructive pulmonary disease) Diabetes Kidney problem Mother CVD (cardiovascular disease) Son Depression H/O ETOH abuse Drug addiction Other Mental health disorder Substance use disorder Surgical History Surgical History Hx of unilateral salpingectomy History of bilateral cataract extraction History of laparoscopic cholecystectomy LAP-BAND surgery status History of section Social History Social History Housing: House Alcohol intake: current Alcohol intake frequency: holidays/special occasions only Patient Tobacco Use Status: Never used Tobacco e-Cigarette/Vaping Use: Never Used Second Hand Smoke Exposure: No Use of substances other than those prescribed or required for medical reasons: No Are you DNR?: No Advance Directives: No Advance Directives Information Provided: Yes service: No Current occupational status: employed and unemployed 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 Current occupational exposures/hazards: No Cognitive needs: No Hearing needs: No Vision needs: No Meds Allergies Allergy/AdvReac Type Severity Reaction Status Date / Time prochlorperazine Allergy Severe THROAT Verified 09/11/23 14:08 [From COMPAZINE] SWELLS benztropine [From COGENTIN] Allergy Intermediate RASH Verified 09/11/23 14:08 glucosamine [GLUCOSAMINE] Allergy Intermediate RASH Verified 09/11/23 14:08 latex [LATEX] Allergy Intermediate RED Verified 09/11/23 14:08 RASH,ITCHINESS Adhesive Bandages Allergy Intermediate rash Uncoded 09/11/23 14:08 Home Medications ?Medication ?Instructions ?Recorded ?Confirmed ?Last Taken ?Type divalproex 500 mg tablet,extended mg PO 04/25/20 08/27/21 Unknown History release 24 hr fluticasone propionate 50 1 spray intranasal DAILY 04/25/20 08/27/21 Unknown History mcg/actuation nasal spray,suspension lorazepam 0.5 mg tablet mg PO DAILY PRN anxiety 04/25/20 08/27/21 Unknown History quetiapine 200 mg tablet [id number] mg PO BEDTIME 04/25/20 08/27/21 Unknown History suvorexant 10 mg tablet (Belsomra) 10 mg PO BEDTIME PRN 08/21/23 Unknown History Exam Height,Weight and Vital Signs: Height 5 ft 4 in Weight 116.573 kg Pertinent Lab Results Pertinent Lab Results: Laboratory Tests 08/26/23 14:35 WBC 6.5 Hgb 13.9 Hct 41.0 Plt Count 197 Sodium 141 Potassium 4.6 Chloride 104 Carbon Dioxide 29 BUN 13 Creatinine 0.79 Assessment and Plan Assessment Anesthesia Assessment: Chart Reviewed Documented by User: Saab Reagan MD 09/19/23 09:45 [facility] Past Medical History Medical History Dysplasia of cervix, low grade (EYAD 1) Hx of ectopic Lumbar arthropathy Internal derangement of left knee Primary osteoarthritis of knees, bilateral Internal derangement of right knee Cholelithiasis Family History Family History Father COPD (chronic obstructive pulmonary disease) Diabetes Kidney problem Mother CVD (cardiovascular disease) Son Depression H/O ETOH abuse Drug addiction Other Mental health disorder Substance use disorder Family history of problems with anesthesia: No Surgical History Surgical History Hx of unilateral salpingectomy History of bilateral cataract extraction History of laparoscopic cholecystectomy LAP-BAND surgery status History of section History of Problems with Anesthesia: No Social History Social History Housing: House Alcohol intake: current Alcohol intake frequency: holidays/special occasions only Patient Tobacco Use Status: Never used Tobacco e-Cigarette/Vaping Use: Never Used Second Hand Smoke Exposure: No Use of substances other than those prescribed or required for medical reasons: No Are you DNR?: No Advance Directives: No Advance Directives Information Provided: Yes service: No Current occupational status: employed and unemployed 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 Current occupational exposures/hazards: No Cognitive needs: No Hearing needs: No Vision needs: No Meds Allergies Allergy/AdvReac Type Severity Reaction Status Date / Time prochlorperazine Allergy Severe THROAT Verified 09/11/23 14:08 [From COMPAZINE] SWELLS benztropine [From COGENTIN] Allergy Intermediate RASH Verified 09/11/23 14:08 glucosamine [GLUCOSAMINE] Allergy Intermediate RASH Verified 09/11/23 14:08 latex [LATEX] Allergy Intermediate RED Verified 09/11/23 14:08 RASH,ITCHINESS Adhesive Bandages Allergy Intermediate rash Uncoded 09/11/23 14:08 Home Medications ?Medication ?Instructions ?Recorded ?Confirmed ?Last Taken ?Type divalproex 500 mg tablet,extended mg PO 04/25/20 08/27/21 Unknown History release 24 hr fluticasone propionate 50 1 spray intranasal DAILY 04/25/20 08/27/21 Unknown History mcg/actuation nasal spray,suspension lorazepam 0.5 mg tablet mg PO DAILY PRN anxiety 04/25/20 08/27/21 Unknown History quetiapine 200 mg tablet [id number] mg PO BEDTIME 04/25/20 08/27/21 Unknown History suvorexant 10 mg tablet (Belsomra) 10 mg PO BEDTIME PRN 08/21/23 Unknown History Exam Airway Mallampati Class: III TM Dist: >3cm Neck ROM: Full Heart: rrr Lungs: cta Assessment and Plan Assessment Anesthesia Assessment: Anesthesia Plan Discussed Final Anesthetic Review Family History of Problems with Anesthesia: No History of Problems with Anesthesia: No NPO: Yes ASA Class: III Final Preanesthetic Review: No Changes in Pt Med Stat, Meds/Allgs Chart Reviewed and Consent Obtained/Reviewed Patient Risk: Intermediate Procedure Risk: Low Anesthetic Plan Anesthetic Plan: GA Disposition: Standard PACU
[2023-09-19 09:06] VITALS: BMI 45.9
[2023-09-19 09:12] VITALS: BP 148/84; PULSE 86; RESP 16; TEMP 36.4; O2SAT 97
--- NOTE | 2023-09-19 09:22 | MHC.SHP ---
Pre-Procedural Eval Section A - 24 Hr Update-Section A only Date of Service: 09/19/23 The patient is an INPATIENT: No Changes since office visit: No Cold of Flu in the past 2 weeks, No New Medical Problems, No Changes in Medication and No Patient answered all questions The patient has been examined within 24 hours of the surgical procedure. The History & Physical has been completed within 30 days and I have reviewed it.: Yes Section B - Complete if H&P > 30 days Chief Complaint: Postmenopausal bleeding Allergies: Allergies Allergy/AdvReac Type Severity Reaction Status Date / Time prochlorperazine Allergy Severe THROAT Verified 09/11/23 14:08 [From COMPAZINE] SWELLS benztropine [From COGENTIN] Allergy Intermediate RASH Verified 09/11/23 14:08 glucosamine [GLUCOSAMINE] Allergy Intermediate RASH Verified 09/11/23 14:08 latex [LATEX] Allergy Intermediate RED Verified 09/11/23 14:08 RASH,ITCHINESS Adhesive Bandages Allergy Intermediate rash Uncoded 09/11/23 14:08 Plan Diagnosis/Plan: Unchanged I have reviewed the history and physical and performed a pertinent physical examination on my patient. No changes have occurred unless specified. Time Spent With Patient Time: Total time managing care of this patient today ____ minutes.
[2023-09-19] MEDS: Lactated Ringers 1,000 ML 100 ML IVCONT (09:38)
--- NOTE | 2023-09-19 11:39 | PM.OP ---
Brief Operative Note Date of Service: 09/19/23 Pre-op diagnosis: Postmenopausal bleeding, proliferative endometrium on EMB pathology, endometrial polyp Post-op diagnosis: same (Endometrial polyp) Procedure: Hysteroscopy D&C, Polypectomy, Mirena IUD insertion Surgeon: Nic Doran MD Anesthesia: GLMA Was an Salesperson Furniture used for this Procedure?: No Estimated blood loss (mL): 0 Pathology: other (Endometrial Scrapping. Polyp) Condition: stable Disposition: PACU
--- NOTE | 2023-09-19 11:40 | P.OP_ITS ---
Operative Note Operative Note Date of Service: 09/19/23 Narrative: Preop Diagnosis: Postmenopausal bleeding with proliferative endometrium on EMB pathology and Endometrial polyp Operation: Diagnostic Hysteroscopy, Dilataion & Curettage and polypectomy, Mirena IUD insertion Post Op Diagnosis: Endometrial Polyp QBL: Minimal Anesthesia: GLMA Surgeon: Nic Doran MD [employer] Specialist: None Complication: None Pathology: Endometrial Scrapings, Endometrial polyp Procedure: The patient was put in the dorsal lithotomy position, scrubbed, and draped in the usual manner. A sterile speculum was inserted in the patient's vagina. The anterior lip of the cervix was grasped with a single tooth tenac ulum. The cervix was dilated up to 5 mm, then the scope was inserted in the patient's uterus. Inspection revealed endometrial polyp. The Myosure Reach device was used; it was introduced through the operative channel and polypectomy done with no complications. The scope was then taken out from the uterine cavity, sharp curettings was carried on with minimal to moderate amount of tissues retrieved. A sound was advanced through the external and internal os until it reached the fundus of the uterus, the depth was 7 cm. The sound was then withdrawn. The IUD was loaded in a sterile manner and advanced into position. The string was visualized and cut to 3 cm. Hemostasis was assured using cautery at the Tenaculum site preop At the end of the procedure, all instruments were taken out of the patient uterine and vaginal cavity. The patient tolerated the procedure well and was transferred to the PACU in a stable condition.
[2023-09-19 11:41] VITALS: BP 226/136; PULSE 122; RESP 16; TEMP 37.2; O2SAT 93
[2023-09-19 11:46] VITALS: BP 179/93; PULSE 89; RESP 17; O2SAT 93
[2023-09-19 11:51] VITALS: BP 160/70; PULSE 90; RESP 18; O2SAT 96
[2023-09-19 11:56] VITALS: BP 160/70; PULSE 84; RESP 17; O2SAT 97
[2023-09-19] MEDS: oxyCODONE HCl Immed Release 5 MG TABLET PO (12:01)
[2023-09-19 12:11] VITALS: BP 161/70; PULSE 83; RESP 18; TEMP 37.2; O2SAT 95
== END 2023-09-19 11:37 | disposition home or self-care (01) ==
PROVIDERS: PCP Family Medicine; Visit Provider Obstetrics & Gynecology
PROC: 0UDB8ZZ Extraction of Endometrium, Via Natural or Artificial Opening Endoscopic (ICD-10-PCS; CPT 58558; principal; 2023-09-19 11:10)
DX: N95.0 Postmenopausal bleeding (principal); N84.0 Polyp of corpus uteri; Z90.721 Acquired absence of ovaries, unilateral; Z88.8 Allergy status to other drugs, medicaments and biological substances; L23.1 Allergic contact dermatitis due to adhesives; Z91.040 Latex allergy status; Z98.84 Bariatric surgery status; Z90.49 Acquired absence of other specified parts of digestive tract; Z56.0 Unemployment, unspecified
CPT/HCPCS: 58558; 58300; 88305; J1885; J2405; J2704; J3010; J7298

== ENCOUNTER → 2023-09-19 08:56 | Outpatient (BNV) | payer MEDICARE, SELFPAY | PROVIDERS: PCP Family Medicine; Visit Provider Obstetrics & Gynecology | DX: N95.0 Postmenopausal bleeding (principal); Z30.430 Encounter for insertion of intrauterine contraceptive device | CPT/HCPCS: 58300; 58558 ==

== ENCOUNTER 2023-10-03 12:18 | Outpatient (REF) | payer MEDICARE, SELFPAY ==
--- NOTE | ~2023-10-03 | MM_ITS ---
EXAMINATION: BONE DENSITOMETRY CLINICAL INDICATION: Age-related osteoporosis without current pathological fracture. COMPARISON: Baseline BD dated 01/12/2016. TECHNIQUE: Using a [employer] DXA System (software version: 13.1) manufactured by [employer], dual-energy x-ray absorptiometry was performed of the lumbar spine and left hip. The images are of good technical quality. Summary results are attached. FINDINGS: LEFT FEMUR, NECK: Current: BMD 0.923 g/cm2, Z-score -0.1, T-score -0.8, normal. Baseline: BMD 0.912 g/cm2. LEFT FEMUR, TOTAL: Current: BMD 1.079 g/cm2, Z-score 1.0, T-score 0.6, normal, 6.4% increase from baseline (<5% change is not significant). Baseline: BMD 1.014 g/cm2. AP SPINE L1-L4: Current: BMD 1.322 g/cm2, Z-score 1.6, T-score 1.2, normal, 12.2% increase from baseline (<5% change is not significant). Baseline: BMD 1.178 g/cm2. IDENTIFIED RISK FACTORS: Right ovariectomy, family history (parent hip fracture), low calcium intake, menopause, osteoporosis. HISTORY OF FRACTURE: None listed. MEDICATIONS: None listed. MM/XR DEXA axial skeleton IMPRESSION: 1. DIAGNOSIS: Normal bone density based on the lowest T-score value of -0.8 in the femoral neck applying World Health Organization criteria. 2. 10-YEAR FRACTURE RISK PREDICTION, FRAX: According to the guidelines, FRAX calculation should only be performed on patients in the osteopenia bone density category. Therefore, FRAX was not performed on this patient.? 3. Treatment Recommendations: NOF guidelines recommend consideration for treatment in postmenopausal women and men age 50 and older presenting with the following: -A hip or vertebral (clinical or morphometric) fracture. -T-score less than or equal to -2.5 at the femoral neck or spine after appropriate evaluation to exclude secondary causes. -Low bone mass at the hip or spine and a 10-year fracture probability by FRAX of greater than or equal to 3% for hip fracture or greater than or equal to 20% for major osteoporotic fracture based on the [place] adapted WHO algorithm. 4. Other Recommendations: All treatment decisions require clinical judgment and consideration of individual patient factors, including patient preferences, comorbidities, previous drug use, risk factors not captured in the FRAX model (e.g. frailty, falls, vitamin D deficiency, increased bone turnover, interval significant decline in bone density) and possible under or overestimation of fracture risk by FRAX. FUTURE SCAN RECOMMENDATION: People with diagnosed cases of osteoporosis or at high risk for fracture should have regular bone mineral density tests. For patients eligible for Medicare, routine testing is allowed once every 2 years. The testing frequency can be increased to one year for patients who have rapidly progressing disease, those who are receiving or discontinuing medical therapy to restore bone mass, or have additional risk factors.
--- NOTE | ~2023-10-03 | MM_ITS ---
EXAMINATION: MM SCREENING DIGITAL BREAST TOMOSYNTHESIS, BILATERAL CLINICAL INFORMATION: Screening. Asymptomatic. COMPARISON: Mammography: This study is compared with prior exams dating back to 2016. TECHNIQUE: Digital breast tomosynthesis is performed in both the craniocaudal and mediolateral oblique views along with computer-aided detection (CAD). Synthesized 2D images are generated from the tomosynthesis. FINDINGS: The breasts are almost entirely fatty (ACR BI-RADS breast composition Category a). There are no significant masses, abnormal calcifications, or other abnormalities. Few, benign, unchanged calcifications of the inferior aspect of the right breast are present. MM/MM tomosynthesis screening BI IMPRESSION: No mammographic evidence of malignancy. ASSESSMENT: BI-RADS BI-RADS 2 - Benign Findings RECOMMENDATION: Routine annual mammography screening. 1 year F/U This examination should not preclude the clinical evaluation of a suspicious palpable abnormality. This patient's information was entered into a reminder system with a target due date for their next mammogram.
== END 2023-10-03 12:19 | disposition home or self-care (01) ==
LOC: HO.MAMMO 12:18
PROVIDERS: PCP Family Medicine; Visit Provider Family Medicine
DX: Z12.31 Encounter for screening mammogram for malignant neoplasm of breast (principal); Z13.820 Encounter for screening for osteoporosis; M81.0 Age-related osteoporosis without current pathological fracture; Z78.0 Asymptomatic menopausal state
CPT/HCPCS: 77063; 77067; 77080

== ENCOUNTER → 2023-10-03 13:30 | Outpatient (BNV) | payer MEDICARE, SELFPAY | PROVIDERS: PCP Family Medicine; Visit Provider Radiology Diagnostic Radiology | DX: Z12.31 Encounter for screening mammogram for malignant neoplasm of breast (principal) | CPT/HCPCS: 77063; 77067 ==

== ENCOUNTER 2023-10-06 09:36 | Outpatient (AMB) | payer MEDICARE, SELFPAY ==
--- NOTE | 2023-10-06 09:42 | MHC.OFFVIS ---
Vital Signs 10/06/23 09:44 Height 5 ft 4 in Weight 260 lb BMI 44.6 BP 130/76 Intake Visit Reasons: post op Allergies prochlorperazine [From COMPAZINE] Allergy (Severe, Verified 09/11/23 14:08) THROAT SWELLS benztropine [From COGENTIN] Allergy (Intermediate, Verified 09/11/23 14:08) RASH glucosamine [GLUCOSAMINE] Allergy (Intermediate, Verified 09/11/23 14:08) RASH latex [LATEX] Allergy (Intermediate, Verified 09/11/23 14:08) RED RASH,ITCHINESS Adhesive Bandages Allergy (Intermediate, Uncoded 09/11/23 14:08) rash HPI Comments Details: The patient is presenting post hysteroscopy D&C /polypectomy with Mirena IUD insertion, no complaints minimal vaginal bleeding no feverishness chills or abdominal pain. The pathology showed the following: A. Endometrial polyp, resection: Benign endometrial polyp; no atypia or carcinoma. B. Endometrium, curettage: Fragmented benign inactive endometrium; no atypia or carcinoma. Last mammogram was done in a few days ago, the report is still pending [facility] Medical History Dysplasia of cervix, low grade (EYAD 1) Hx of ectopic Lumbar arthropathy Internal derangement of left knee Primary osteoarthritis of knees, bilateral Internal derangement of right knee Cholelithiasis Surgical History Hx of unilateral salpingectomy History of bilateral cataract extraction History of laparoscopic cholecystectomy LAP-BAND surgery status History of section Family History Father COPD (chronic obstructive pulmonary disease) Diabetes Kidney problem Mother CVD (cardiovascular disease) Son Depression H/O ETOH abuse Drug addiction Other Mental health disorder Substance use disorder Social History Housing: House Alcohol intake: current Alcohol intake frequency: holidays/special occasions only Patient Tobacco Use Status: Never used Tobacco e-Cigarette/Vaping Use: Never Used Second Hand Smoke Exposure: No service: No Current occupational status: employed and unemployed 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 Current occupational exposures/hazards: No Cognitive needs: No Hearing needs: No Vision needs: No Female Reproductive History Menstrual Age of Menarche: 13 Review of Systems Const All systems reviewed & are unremarkable except as noted in HPI and below Reports as per HPI and Reports no additional complaints GI Reports no additional complaints Reports no additional complaints Physical Exam Vital Signs: Last Vital Signs BP 130/76 10/06/23 09:44 BMI result Body Mass Index 44.6 Assessment & Plan Assessment & Plan (1) Post-menopausal bleeding: Comment: Endometrial polyp status post polypectomy Mirena IUD in place Code(s): N95.0 - Postmenopausal bleeding Category: Medical Plan: Discussed with the patient the intraoperative finding, endometrial polyp with the results the pathology, inactive endometrium with no evidence of proliferative endometrium that was seen on EMB pathology, hyperplasia and/or carcinoma, and benign polyp. Discussed with the patient the sensitivity, specificity, positive and negative predictive value, of endometrial biopsy in detecting endometrial pathology including but not limited to endometrial hyperplasia, cancer and other pathology; Recommended to schedule IUD check/repeat EMB in 3 months because of history of proliferative endometrium on EMB pathology , IUD insertion during hysteroscopy Instructed the patient to call in case mammogram report is abnormal for Mirena IUD removal, in case her vaginal bleeding bleeding recurs, the next step will be to proceed with a diagnostic hysteroscopy/D&C for further endometrial sampling evaluation to rule out endometrial pathology. All questions answered and the patient verbalized understanding and agreed with the plan. Coding Level of Care Code Est Pt Level 3 (95860) Diagnoses Post-menopausal bleeding N95.0
[2023-10-06 09:44] VITALS: BP 130/76; BMI 44.6
== END 2023-10-06 10:01 | disposition home or self-care (01) ==
PROVIDERS: PCP Family Medicine; Visit Provider Obstetrics & Gynecology
DX: N95.0 Postmenopausal bleeding (principal)
CPT/HCPCS: 99213

== ENCOUNTER → 2023-10-06 09:36 | Outpatient (BNVA) | payer MEDICARE, SELFPAY | PROVIDERS: PCP Family Medicine; Visit Provider Obstetrics & Gynecology | DX: N95.0 Postmenopausal bleeding (principal) | CPT/HCPCS: 99212 ==

== ENCOUNTER 2023-12-12 | Outpatient (REF) | payer MEDICARE, SELFPAY ==
[2023-12-13 16:10] LABS: Influenza A PCR NEGATIVE (Negative); Influenza B PCR NEGATIVE (Negative); Resp Syncy Virus RNA Qual PCR NEGATIVE (Negative); SARS COV2 PCR INHOUSE NEGATIVE (Negative)
== END 2023-12-12 00:01 | disposition home or self-care (01) ==
LOC: HO.LNP
PROVIDERS: Visit Provider Nurse Practitioner Family
DX: R09.89 Other specified symptoms and signs involving the circulatory and respiratory systems (principal); J06.9 Acute upper respiratory infection, unspecified
CPT/HCPCS: 0241U

== ENCOUNTER 2023-12-12 15:39 | Outpatient (AMB) | payer MEDICARE, SELFPAY ==
--- NOTE | 2023-12-12 16:00 | AM.OFFWIN_ITS ---
Intake Vital Signs 12/12/23 16:02 Height 5 ft 4 in Weight 257 lb BMI 44.1 BP 128/82 Blood Pressure Location Lt brachial Position Sitting Pulse 104 H Pulse Source Pulse Oximeter Temp 98.4 F Temp Source Oral Pulse Oximetry (%) 97 Oxygen Delivery Method Room Air Intake Visit Reasons: EP Sore throat, headache, tingling hands Intake Note: pt c/o sore throat, headache, tingling hands. Started Patient Tobacco Use Status: Never used Tobacco Allergies prochlorperazine [From COMPAZINE] Allergy (Severe, Verified 12/12/23 16:01) THROAT SWELLS benztropine [From COGENTIN] Allergy (Intermediate, Verified 12/12/23 16:01) RASH glucosamine [GLUCOSAMINE] Allergy (Intermediate, Verified 12/12/23 16:01) RASH latex [LATEX] Allergy (Intermediate, Verified 12/12/23 16:01) RED RASH,ITCHINESS Adhesive Bandages Allergy (Intermediate, Uncoded 12/12/23 16:01) rash Do you need a note to return to daycare/school/sports/work: Yes HPI HPI Comments History of Present Illness Details 68 y/o female patient who presents to [facility] in clinic with c/o Sore- throat and body aches and chills x 5 days. Pt was at a concert a week ago, was in-contact with thousands of people. [facility] Medical History Dysplasia of cervix, low grade (EYAD 1) Hx of ectopic Lumbar arthropathy Internal derangement of left knee Primary osteoarthritis of knees, bilateral Internal derangement of right knee Cholelithiasis Surgical History Hx of unilateral salpingectomy History of bilateral cataract extraction History of laparoscopic cholecystectomy LAP-BAND surgery status History of section Family History Father COPD (chronic obstructive pulmonary disease) Diabetes Kidney problem Mother CVD (cardiovascular disease) Son Depression H/O ETOH abuse Drug addiction Other Mental health disorder Substance use disorder Social History Housing: House Alcohol intake: current Alcohol intake frequency: holidays/special occasions only Patient Tobacco Use Status: Never used Tobacco e-Cigarette/Vaping Use: Never Used Second Hand Smoke Exposure: No service: No Current occupational status: employed and unemployed 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 Current occupational exposures/hazards: No Cognitive needs: No Hearing needs: No Vision needs: No Female Reproductive History Menstrual Age of Menarche: 13 Review of Systems Const All systems reviewed & are unremarkable except as noted in HPI and below Physical Exam Vital Signs: Last Vital Signs Temp 98.4 F 12/12/23 16:02 Pulse 104 H 12/12/23 16:02 BP 128/82 12/12/23 16:02 Pulse Ox 97 12/12/23 16:02 Oxygen Delivery Method Room Air 12/12/23 16:02 BMI result Body Mass Index 44.1 Const General: comfortable and no acute distress Nutritional Appearance: obese Orientation/consciousness: patient oriented x3 HEENT Head: Yes normocephalic Ears: external ears normal and TM abnormal bulging, erythematous and with fluid behind the TM; not perforated, not retracted and not scarred General nose exam: Normal nasal mucous membranes and turbinates present Face and sinus: Yes sinuses nontender Mouth: moist mucous membranes Throat: Yes posterior oropharynx normal Resp Effort & Inspection: normal respiratory effort and able to speak in complete sentences Auscultation: clear to auscultation bilaterally, no crackles, no rales, no rhonchi and no wheezes Cardio Rate: regular rate Rhythm: regular rhythm Neuro General: patient oriented x3, gait normal and moves all extremities Psych Speech and movement: Normal speech and movement present Results AMB Rapid Strep AMB Rapid Strep Positive Last Edit by Rafa Smith CMA on 12/12/23 16:16 Results Reviewed Results Reviewed: Laboratory Last Values Strep Scn Rapid Clinic Positive 12/12/23 16:12 Assessment & Plan Assessment & Plan (1) Upper respiratory infection: Code(s): J06.9 - Acute upper respiratory infection, unspecified Qualifiers: URI type: unspecified viral URI Qualified Code(s): J06.9 - Acute upper respiratory infection, unspecified Plan: Warm fluids with honey OTC cough and sore-throat remedies Take medications as prescribed. Orders: Orders AMB Rapid Strep Screen Today Z13.9 - Encounter for screening, unspecified SARS-CoV2/FLU/RSV Today R09.89 - Other specified symptoms and signs involving the circulatory and respiratory systems Medications: New prednisone 50 mg PO DAILY 5 days 5 tabs 0RF J06.9 - Acute upper respiratory infection, unspecified penicillin V potassium 500 mg PO TID 10 days 30 tabs 0RF J02.0 - Streptococcal pharyngitis Coding Level of Care Code Est Pt Level 3 (46982) Diagnoses Viral upper respiratory tract infection J06.9 URI type: unspecified viral URI Time Spent (min) 15
[2023-12-12 16:02] VITALS: BP 128/82; PULSE 104; TEMP 36.9; O2SAT 97; BMI 44.1
== END 2023-12-12 16:41 | disposition home or self-care (01) ==
PROVIDERS: PCP Family Medicine; Visit Provider Nurse Practitioner Family
DX: J06.9 Acute upper respiratory infection, unspecified (principal); J02.9 Acute pharyngitis, unspecified
CPT/HCPCS: 87880; 99213

== ENCOUNTER 2023-12-12 16:23 | Outpatient (REF) | payer MEDICARE, SELFPAY | END 2023-12-12 16:24 | disposition home or self-care (01) | LOC: HO.LAB 16:23 | PROVIDERS: Visit Provider Nurse Practitioner Family | DX: Z13.89 Encounter for screening for other disorder (principal) ==

== ENCOUNTER 2023-12-22 14:24 | Outpatient (AMB) | payer MEDICARE, SELFPAY ==
[2023-12-22 14:31] VITALS: BP 144/80; PULSE 100; RESP 15; TEMP 36.6; O2SAT 99; BMI 44.3
--- NOTE | 2023-12-22 14:31 | MHC.PC.OV ---
Vital Signs 12/22/23 14:31 Height 5 ft 4 in Weight 258 lb BMI 44.3 BP 144/80 H Blood Pressure Location Rt brachial Position Sitting Respiration 15 Pulse 100 Pulse Source Pulse Oximeter Temp 98 F Temp Source Temporal Artery Scan Pulse Oximetry (%) 99 Oxygen Delivery Method Room Air Intake Visit Reasons: f/u hyperlipidemia - see comments Intake Note: Patient states that she believes she has a pinched nerve and has been experiencing tingling in right arm. 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 Required: No Accompanied by: Self / Same As Patient Allergies prochlorperazine [From COMPAZINE] Allergy (Severe, Verified 12/22/23 14:37) THROAT SWELLS benztropine [From COGENTIN] Allergy (Intermediate, Verified 12/22/23 14:37) RASH glucosamine [GLUCOSAMINE] Allergy (Intermediate, Verified 12/22/23 14:37) RASH latex [LATEX] Allergy (Intermediate, Verified 12/22/23 14:37) RED RASH,ITCHINESS Adhesive Bandages Allergy (Intermediate, Uncoded 12/12/23 16:01) rash Tobacco use date assessed: 09/11/23 Fall risk assessment: No Falls in past year Last assessed Fall Risk: 12/22/23 Dental Screening Dental Screen Date: 09/11/23 HPI f/u hyperlipidemia - see comments HPI Details 68 y/o female presents to f/u hyperlipidemia and weight. Had started her on Zetia as she did not tolerate statins. She states she is tolerating zetia better. No recent lipid panel to review. Pt has complaints of tingling R arm. She is unsure if she pulled something and she reports back of her shoulders do feel painful. Blood pressure today 144/80, 100p. [facility] Medical History Dysplasia of cervix, low grade (EYAD 1) Hx of ectopic Lumbar arthropathy Internal derangement of left knee Primary osteoarthritis of knees, bilateral Internal derangement of right knee Cholelithiasis Surgical History Hx of unilateral salpingectomy History of bilateral cataract extraction History of laparoscopic cholecystectomy LAP-BAND surgery status History of section Family History Father COPD (chronic obstructive pulmonary disease) Diabetes Kidney problem Mother CVD (cardiovascular disease) Son Depression H/O ETOH abuse Drug addiction Other Mental health disorder Substance use disorder Social History (Reviewed 12/22/23 @ 14:39 by Fabiola Villeda [facility]) Housing: House Alcohol intake: current Alcohol intake frequency: holidays/special occasions only Patient Tobacco Use Status: Never used Tobacco e-Cigarette/Vaping Use: Never Used Second Hand Smoke Exposure: No service: No Current occupational status: employed and unemployed 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 Current occupational exposures/hazards: No Cognitive needs: No Hearing needs: No Vision needs: No Female Reproductive History Menstrual Age of Menarche: 13 Questionnaire Thrive Questionnaire Date Thrive assessed: 09/11/23 CARLOS-7 AMB Questionnaire CARLOS-7 Date CARLOS - 7 assessed: 09/11/23 Source: Developed by Drs. Marcel Paige, Marion Schwartz, Ahmet Dunham and colleagues, with an educational harinder from [employer]formerly [email or web address]). Review of Systems Const Denies chills, Denies fatigue, Denies fever(s), Denies headache(s) and Denies weakness ENT Denies dizziness and Denies headache(s) Card Denies dyspnea Resp Denies cough, Denies dyspnea, Denies wheezing and Denies other (shortness of breath) Musc Details: R shoulder pain Denies numbness and Denies tingling Neuro Details: Tingling r upper extremity Denies dizziness, Denies headache(s), Denies numbness, Denies tingling and Denies weakness Psych Denies anxiety and Denies depression Endo Denies fatigue Aller/Immun Denies wheezing Physical exam (Primary Care) Vital Signs: Last Vital Signs Temp 98 F 12/22/23 14:31 Pulse 100 12/22/23 14:31 Resp 15 12/22/23 14:31 BP 144/80 H 12/22/23 14:31 Pulse Ox 99 12/22/23 14:31 Oxygen Delivery Method Room Air 12/22/23 14:31 BMI result Body Mass Index 44.3 Tobacco/Smoking Status: Tobacco use Status Tobacco use date assessed 09/11/23 12/22/23 14:39 Patient Tobacco Use Status Never used Tobacco 12/22/23 14:39 e-Cigarette/Vaping Use Never Used 12/22/23 14:39 Thrive Assessment: Date of Thrive Assessment Date Thrive assessed 09/11/23 12/22/23 14:39 Const General: well developed; No acute distress Nutritional Appearance: well nourished Orientation/consciousness: patient oriented x3 HENMT Head: Yes normocephalic and Yes atraumatic Eyes General: appearance normal, both eyes and all related structures Pupils: Equal, round and reactive pupils present EOM: EOMs intact bilaterally Resp Effort & Inspection: normal respiratory effort Neuro General: patient oriented x3 and gait normal Cranial nerves: Yes Equal, round and reactive pupils present Extrem Other: R shoulder decreased range of motion Psych Affect: normal affect Assessment and Plan Assessment & Plan (1) Hyperlipidemia: Code(s): E78.5 - Hyperlipidemia, unspecified Plan: patient has not gotten labs redrawn since starting Zetia but she is tolerating this medication she will get her labs drawn and we can follow-up by telemedicine in 3-4 weeks. (2) Hypertension: Code(s): I10 - Essential (primary) hypertension Plan: blood pressure is still too high start losartan (3) Tingling of right upper extremity: Code(s): R20.2 - Paresthesia of skin Plan: likely secondary to impingement at right shoulder-see below normal circulation and temperature of right hand. Normal motor Phalen test negative (4) Shoulder pain: Code(s): M25.519 - Pain in unspecified shoulder Plan: some discomfort and decreased range of motion at right shoulder numbness in ulnar distribution initially and then all fingers of right hand likely impingement at right shoulder start naproxen ice physical therapy if not improving or if worsens with symptoms including decreased sensation, circulation or motor function - call/return to office or go to ED Orders: Orders PT Evaluation and Treatment Today M25.519 - Pain in unspecified shoulder, R20.0 - Anesthesia of skin Medications: New losartan 50 mg PO DAILY 90 days 90 tabs 2RF naproxen do not take ibuprofen while using naproxen 500 mg PO BID 30 days PRN 60 tabs 1RF pain Coding Level of Care Code Est Pt Level 4 (97767) Diagnoses Hyperlipidemia E78.5 Hypertension I10 Tingling of right upper extremity R20.2 Shoulder pain M25.519
== END 2023-12-22 16:27 | disposition home or self-care (01) ==
PROVIDERS: PCP Family Medicine; Visit Provider Family Medicine
DX: E78.5 Hyperlipidemia, unspecified (principal); I10 Essential (primary) hypertension; R20.2 Paresthesia of skin; M25.519 Pain in unspecified shoulder
CPT/HCPCS: 99214

== ENCOUNTER 2023-12-26 11:22 | Outpatient (REF) | payer MEDICARE, SELFPAY ==
[2023-12-26 14:19] LABS: Appearance Urine Clear; Color Urine Yellow; Glucose Urine UA Negative (Negative); Leukocyte Esterase Urine Small (1+) (Negative); Nitrite Urine Negative (Negative); UMIC TRIGGER UA YES; Urine Blood Small (1+) (Negative); Urine Ketones Negative (Negative); Urine Protein Negative (Neg-Trace)
[2023-12-26 14:35] LABS: Bacteria Urine None Seen (None Seen); Hyaline Casts Urine 0-2 /LPF (0-2); RBC Urine 0-2 /HPF (0-2)
[2023-12-26 20:27] LABS: Alanine Aminotransferase 42 U/L (0-31); Albumin Level 4.1 g/dL (3.5-5.0); Alkaline Phosphatase 48 U/L (39-117); Anion Gap 15 (12-20); Aspartate Amino Transferase 27 U/L (5-31); Bilirubin Total 0.4 mg/dL (0.0-1.0); Blood Urea Nitrogen 20 mg/dL (9-16); Calcium 9.3 mg/dL (8.4-10.2); Carbon Dioxide 27 mmol/L (22-29); Chloride 104 mmol/L (96-108); Cholesterol 222 mg/dL (<200); Estimated Glomerular Filt Rate > 60; Glucose Fasting 96 mg/dL (60-99); HDL Cholesterol 45 mg/dL (>40); LDL Cholesterol Calculated 136 mg/dL (<100); Potassium 4.6 mmol/L (3.3-5.1); Sodium 141 mmol/L (135-145); Total Protein 6.6 g/dL (6.5-8.0); Triglycerides 207 mg/dL (<150)
== END 2023-12-26 11:23 | disposition home or self-care (01) ==
LOC: HO.WFDLDS 11:22
PROVIDERS: Visit Provider Family Medicine
DX: Z00.00 Encounter for general adult medical examination without abnormal findings (principal); E78.5 Hyperlipidemia, unspecified
CPT/HCPCS: 36415; 80053; 80061; 81001; 81003

== ENCOUNTER → 2024-02-06 11:29 | Outpatient (AMB) | payer MEDICARE, SELFPAY ==
--- NOTE | 2024-02-06 11:17 | MHC.PC.OV ---
Intake Visit Reasons: F/U lab results Intake Note: review lab results Allergies prochlorperazine [From COMPAZINE] Allergy (Severe, Verified 02/06/24 11:18) THROAT SWELLS benztropine [From COGENTIN] Allergy (Intermediate, Verified 02/06/24 11:18) RASH glucosamine [GLUCOSAMINE] Allergy (Intermediate, Verified 02/06/24 11:18) RASH latex [LATEX] Allergy (Intermediate, Verified 02/06/24 11:18) RED RASH,ITCHINESS Adhesive Bandages Allergy (Intermediate, Uncoded 12/12/23 16:01) rash Tobacco use date assessed: 09/11/23 Dental Screening Dental Screen Date: 09/11/23 HPI F/U lab results HPI Details 68 y/o female presents to f/u labs, hypertension via telemedicine. Labs drawn 12/26/23. Reviewed labs with pt. Elevated ALT of 42. Triglycerides 207. TC 222. LDL 136. HDL 45. She is on Zetia 10mg daily. She denies any issues with Zetia. Denies any urinary symptoms. Had started her on losartan for her blood pressures. [facility] Medical History Dysplasia of cervix, low grade (EYAD 1) Hx of ectopic Lumbar arthropathy Internal derangement of left knee Primary osteoarthritis of knees, bilateral Internal derangement of right knee Cholelithiasis Surgical History Hx of unilateral salpingectomy History of bilateral cataract extraction History of laparoscopic cholecystectomy LAP-BAND surgery status History of section Family History Father COPD (chronic obstructive pulmonary disease) Diabetes Kidney problem Mother CVD (cardiovascular disease) Son Depression H/O ETOH abuse Drug addiction Other Mental health disorder Substance use disorder Social History Housing: House Alcohol intake: current Alcohol intake frequency: holidays/special occasions only Patient Tobacco Use Status: Never used Tobacco e-Cigarette/Vaping Use: Never Used Second Hand Smoke Exposure: No service: No Current occupational status: employed and unemployed 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 Current occupational exposures/hazards: No Cognitive needs: No Hearing needs: No Vision needs: No Female Reproductive History Menstrual Age of Menarche: 13 Questionnaire Thrive Questionnaire Date Thrive assessed: 09/11/23 CARLOS-7 AMB Questionnaire CARLOS-7 Date CARLOS - 7 assessed: 09/11/23 Source: Developed by Drs. Marcel Paige, Marion Schwartz, Ahmet Dunham and colleagues, with an educational harinder from [email or web address]. Review of Systems Const Denies chills, Denies fatigue, Denies fever(s), Denies headache(s) and Denies weakness ENT Denies dizziness and Denies headache(s) Card Denies dyspnea Resp Denies cough, Denies dyspnea, Denies wheezing and Denies other (shortness of breath) Musc Denies numbness and Denies tingling Neuro Denies dizziness, Denies headache(s), Denies numbness, Denies tingling and Denies weakness Psych Denies anxiety and Denies depression Endo Denies fatigue Aller/Immun Denies wheezing Physical exam (Primary Care) Tobacco/Smoking Status: Tobacco use Status Tobacco use date assessed 09/11/23 02/06/24 11:20 Patient Tobacco Use Status Never used Tobacco 02/06/24 11:20 e-Cigarette/Vaping Use Never Used 02/06/24 11:20 Thrive Assessment: Date of Thrive Assessment Date Thrive assessed 09/11/23 02/06/24 11:20 Telehealth Telehealth Telehealth Platform: Telephone Location of provider rendering services: practice address Location of patient: address on file Patient Identification confirmed using: Name, : Yes Telehealth method: voice only Patient verbally consented to treatment: Yes Patient verbally consented to billing insurance company: Yes Patient informed of any privacy concerns related to visit: Yes Minutes spent on Phone/Video with Pt.: 7 Assessment and Plan Assessment & Plan (1) Hyperlipidemia: Code(s): E78.5 - Hyperlipidemia, unspecified Plan: LDL?cholesterol?has?improved?on?Zetia?though?still?above?goal?of?less?than?100 Continue?Zetia?and?work?at?a?diet?low?in?saturated?fats?and?cholesterol Also?encouraged?weight?control?and?exercise (2) Elevated ALT measurement: Code(s): R74.01 - Elevation of levels of liver transaminase levels Plan: Liver?enzymes?are?improving As?above,?encouraged?weight?loss (3) Hypertension: Code(s): I10 - Essential (primary) hypertension Plan: Had?sent?a?script?for?losartan.??Patient?has?the?medication?but?has?not?started?yet Encouraged?her?to?start?the?medication.??She?can?let?me?know?if?blood?pressure?is?not?well?controlled?or?if?she?is?having?any?adverse?effects?from?the?medication Will?follow-up?in?a?few?months Coding Level of Care Code Tele Est Pt Level 2 (15593) Diagnoses Hyperlipidemia E78.5 Elevated ALT measurement R74.01 Hypertension I10
== END ==
LOC: HO.HMGFM 11:29
PROVIDERS: PCP Family Medicine; Visit Provider Family Medicine
DX: E78.5 Hyperlipidemia, unspecified (principal); R74.01 Elevation of levels of liver transaminase levels; I10 Essential (primary) hypertension
CPT/HCPCS: G2012

== ENCOUNTER 2024-02-12 13:30 | Outpatient (AMB) | payer MEDICARE, SELFPAY ==
--- NOTE | 2024-02-12 13:54 | A.OFFVIS_ITS ---
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: No Information Interpreted: non-clinical & clinical Weatherization Crew Leader: Weatherization Crew Leader Present (Sarah HUGGINS) Accompanied by: Self / Same As Patient Allergies prochlorperazine [From COMPAZINE] Allergy (Severe, Verified 02/12/24 13:59) THROAT SWELLS benztropine [From COGENTIN] Allergy (Intermediate, Verified 02/12/24 13:59) RASH glucosamine [GLUCOSAMINE] Allergy (Intermediate, Verified 02/12/24 13:59) RASH latex [LATEX] Allergy (Intermediate, Verified 02/12/24 13:59) RED RASH,ITCHINESS Adhesive Bandages Allergy (Intermediate, Uncoded 02/12/24 13:59) rash Post menopausal: Yes HPI Comments Details: Presenting for repeat EMB for proliferative endometrium seen on EMB pathology in 08/30, this was followed by hysteroscopy D&C polypectomy and Mirena IUD insertion in 09/30 [facility] Medical History Dysplasia of cervix, low grade (EYAD 1) Hx of ectopic Lumbar arthropathy Internal derangement of left knee Primary osteoarthritis of knees, bilateral Internal derangement of right knee Cholelithiasis Surgical History Hx of unilateral salpingectomy History of bilateral cataract extraction History of laparoscopic cholecystectomy LAP-BAND surgery status History of section Family History Father COPD (chronic obstructive pulmonary disease) Diabetes Kidney problem Mother CVD (cardiovascular disease) Son Depression H/O ETOH abuse Drug addiction Other Mental health disorder Substance use disorder Social History Housing: House Alcohol intake: current Alcohol intake frequency: holidays/special occasions only Patient Tobacco Use Status: Never used Tobacco e-Cigarette/Vaping Use: Never Used Second Hand Smoke Exposure: No service: No Current occupational status: employed and unemployed 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 Current occupational exposures/hazards: No Cognitive needs: No Hearing needs: No Vision needs: No Female Reproductive History Menstrual Age of Menarche: 13 Review of Systems Const All systems reviewed & are unremarkable except as noted in HPI and below Physical Exam Vital Signs: Last Vital Signs BP 132/76 02/12/24 13:58 BMI result Body Mass Index 44.3 General: Yes no CVA tenderness External Female Exam: normal external appearance and normal appearance of the urethra Speculum Exam - Vagina: normal appearance of the vagina, normal palpation, no lesions and no masses Speculum Exam - Cervix: normal appearance of the cervix, normal palpation, no lesions, no masses, nontender and Other cervical findings present (IUD string in place) Bimanual exam- vagina & uterus: normal bimanual exam, normal palpation, uterine size normal, normal palpation, uterine shape normal, No Cervical tenderness present and non-tender Bimanual Exam- Adnexa, other: normal adnexae Back/Spine/Pelvis Back: no CVA tenderness Office Procedures Endometrial Biopsy Details: The patient was counseled regarding the indication and benefits of endometrial sampling to rule out endometrial pathology including not limited to endometrial hyperplasia or endometrial cancer and others; The alternatives (Either do nothing vs. hysteroscopy D&C) & the risks were discussed with the patient including but not limited: pain, uterine perforation, bleeding, infection, possible injury to bladder, bowel, ureter, possible need for blood transfusion with all its possible risks. The patient verbalized understanding all questions answered and signed consent. The patient was placed into the dorsal lithotomy position; a speculum was inserted in the vagina. Using aseptic technique for the procedure, the cervix was cleansed with Betadine. The anterior lip of the cervix was grasped with a single tooth tenaculum. The uterus was sounded to 7 cm with a 4 mm Pipelle was used. Tissues samples were obtained and placed in formalin, in a patient labeled container and sent to the pathology department. At the end of the procedure, there was minimal bleeding noted The patient tolerated the procedure well and was discharged in good condition with the following instructions: Nothing in the vagina until the bleeding stops. No sex until the bleeding stops, to call if any of the following occurs: fever (>100.4), flu-like symptoms, abdominal pain, heavy bleeding, four smelling vaginal discharge. The patient was instructed to schedule a Follow up appointment in 2 weeks to discuss pathology results of the biopsy and treatment options. This note was generated with a voice recognition program. Some errors may have been overlooked during the review of this note. Sometimes these errors may affect the content or meaning of a given sentence. [id number] Biopsy Assessment & Plan Assessment & Plan (1) Post-menopausal bleeding: Comment: Endometrial polyp status post polypectomy Mirena IUD in place Code(s): N95.0 - Postmenopausal bleeding Category: Medical Plan: EMB done, see procedure note. Instructions given the patient to schedule a 2 week follow-up appointment and a 4 months repeat EMB appointment. All questions answered, the patient verbalized understanding Orders: Orders AMB Endometrial Biopsy Today N95.0 - Postmenopausal bleeding Coding Level of Care Code Procedure Only Diagnoses Post-menopausal bleeding N95.0 CPT Codes Endometrial Biopsy - CPT: 97976-[id number] Biopsy ([id number])
[2024-02-12 13:58] VITALS: BP 132/76; BMI 44.3
== END 2024-02-12 14:16 | disposition home or self-care (01) ==
PROVIDERS: PCP Family Medicine; Visit Provider Obstetrics & Gynecology
DX: N95.0 Postmenopausal bleeding (principal)
CPT/HCPCS: 58100

== ENCOUNTER 2024-02-12 13:30 | Outpatient (REF) | payer MEDICARE, SELFPAY | END 2024-02-12 13:31 | disposition home or self-care (01) | LOC: HO.LAB 13:30 | PROVIDERS: PCP Family Medicine; Visit Provider Obstetrics & Gynecology | DX: N95.0 Postmenopausal bleeding (principal) | CPT/HCPCS: 58100; 88305 ==

== ENCOUNTER 2024-04-16 16:11 | Outpatient (AMB) | payer MEDICARE, SELFPAY ==
--- NOTE | 2024-04-16 16:23 | MHC.PC.OV ---
Vital Signs 04/16/24 16:25 Height 5 ft 4 in Weight 259 lb 8 oz BMI 44.5 BP 148/65 H Blood Pressure Location Rt brachial Position Sitting Respiration 16 Pulse 92 Pulse Source Pulse Oximeter Temp 98.8 F Temp Source Temporal Artery Scan Pulse Oximetry (%) 96 Oxygen Delivery Method Room Air Intake Visit Reasons: Cholesterol Follow Up Intake Note: cholesterol f/u and left leg radiating pain Allergies prochlorperazine [From COMPAZINE] Allergy (Severe, Verified 04/16/24 16:24) THROAT SWELLS benztropine [From COGENTIN] Allergy (Intermediate, Verified 04/16/24 16:24) RASH glucosamine [GLUCOSAMINE] Allergy (Intermediate, Verified 04/16/24 16:24) RASH latex [LATEX] Allergy (Intermediate, Verified 04/16/24 16:24) RED RASH,ITCHINESS Adhesive Bandages Allergy (Intermediate, Uncoded 02/12/24 13:59) rash Medication List - Last Reconciled 04/16/24 by Kranthi Mosqueda MD albuterol sulfate 90 mcg/actuation (ProAir HFA) 2 puffs inhalation Q4-6H PRN 30 days beclomethasone dipropionate 40 mcg/actuation (Qvar RediHaler) 1 inh inhalation Q12H 30 days compr.stocking,knee,long,x-lrg 30-40?mmHg, daily?As directed, 999 days divalproex ER mg PO ezetimibe (Zetia) 10 mg PO DAILY 90 days fluticasone propionate 50 mcg/actuation 1 spray intranasal DAILY ibuprofen 800 mg PO TID PRN lorazepam mg PO DAILY PRN losartan 50 mg PO DAILY 90 days miscellaneous medical supply depakote level as directed; naproxen 500 mg PO BID PRN 30 days nystatin 1 appl topical BID PRN 1 month omeprazole 20 mg PO DAILY quetiapine [id number] mg PO BEDTIME terconazole 0.8% 1 appful vaginal BEDTIME 3 days Tobacco use date assessed: 09/11/23 Dental Screening Dental Screen Date: 09/11/23 HPI Cholesterol Follow Up HPI Details 69 y/o female presents to f/u hypertension, lipids. Blood pressure today elevated at 148/65, 92p. She is on losartan 50mg daily. Has complaints of back pain with radicular symptoms. Has complaints of dizziness/vertigo. HPI Comments History of Present Illness Details Documentation assistance for Kranthi Mosqueda MD, was provided by Tin Mistry,? Telemetry Technician on 04/16/2024 at 4:49 PM EST. I, Dr. Mosqueda, have read, observed, and verified documentation. [facility] Medical History Dysplasia of cervix, low grade (EYAD 1) Hx of ectopic Lumbar arthropathy Internal derangement of left knee Primary osteoarthritis of knees, bilateral Internal derangement of right knee Cholelithiasis Surgical History Hx of unilateral salpingectomy History of bilateral cataract extraction History of laparoscopic cholecystectomy LAP-BAND surgery status History of section Family History Father COPD (chronic obstructive pulmonary disease) Diabetes Kidney problem Mother CVD (cardiovascular disease) Son Depression H/O ETOH abuse Drug addiction Other Mental health disorder Substance use disorder Social History Housing: House Alcohol intake: current Alcohol intake frequency: holidays/special occasions only Patient Tobacco Use Status: Never used Tobacco e-Cigarette/Vaping Use: Never Used Second Hand Smoke Exposure: No service: No Current occupational status: employed and unemployed 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 Current occupational exposures/hazards: No Cognitive needs: No Hearing needs: No Vision needs: No Female Reproductive History Menstrual Age of Menarche: 13 Questionnaire PHQ-9 Over the last 2 weeks, how often have you been bothered by any of the following problems? 1. Little interest or pleasure in doing things: not at all 2. Feeling down, depressed, or hopeless: not at all 3. Trouble falling or staying asleep, or sleeping too much: more than half the days 4. Feeling tired or having little energy: several days 5. Poor appetite or overeating: not at all 6. Feeling bad about yourself - or that you are a failure or have let yourself or your family down: not at all 7. Trouble concentrating on things, such as reading the newspaper or watching television: not at all 8. Moving or speaking so slowly that other people could have noticed. Or the opposite - being so fidgety or restless that you have been moving around a lot more than usual: not at all 9. Thoughts that you would be better off or of hurting yourself in some way: not at all Total score: 3 Source: Developed by Drs. Marcel Paige, Marion Schwartz, Ahmet Dunham and colleagues, with an educational harinder from [employer]. Thrive Questionnaire Date Thrive assessed: 09/11/23 I am a: Patient What is your living situation today?: I have a steady place to live Within the past 12 months, did the food you bought not last and you didn't have the money to get more?: Never true Within the past 12 months, did you worry whether your food would run out before you got money to buy more?: Never true Do you have trouble paying for medicines?: No Do you have trouble getting transportation to medical appointments?: No Do you have trouble paying your heating and electricity bill?: No Do you have trouble taking care of your child, family member or friend?: No Do you have trouble with day-to-day activities such as bathing, preparing meals, shopping, managing finances, etc.?: No Are you currently unemployed and looking for a job?: No Are you interested in more education?: Yes Please select the resources that you would like help with: None Currently or been in a relationship where the following occur: No concerns reported THRIVE Score: 0 AUDIT C Alcohol Use Questionnaire (AUDIT-C) 1. How often do you have a drink containing alcohol?: Monthly or less 2. How many drinks containing alcohol do you have on a typical day when you are drinking?: 1 or 2 3. How often do you have six or more drinks on one occasion?: Never Total Score: 1 CARLOS-7 AMB Questionnaire CARLOS-7 Date CARLOS - 7 assessed: 09/11/23 Feeling nervous, anxious, or on edge: 1 = Several days Not being able to stop or control worryin = Several days Worrying too much about different things: 1 = Several days Trouble relaxin = Several days Being so restless that it is hard to sit still: 0 = Not at all Becoming easily annoyed or irritable: 0 = Not at all Feeling afraid as if something awful might happen: 0 = Not at all Total CARLOS-7 score (0-4 normal; 5-9 mild; 10-14 moderate; 15-21 severe): 4 Source: Developed by Drs. Marcel Paige, Marion Schwartz, Ahmet Dunham and colleagues, with an educational harinder from [employer]. Review of Systems Const Denies chills, Denies fatigue, Denies fever(s), Denies headache(s) and Denies weakness ENT Denies dizziness and Denies headache(s) Card Denies dyspnea Resp Denies cough, Denies dyspnea, Denies wheezing and Denies other (shortness of breath) Musc Reports back pain, Denies numbness and Denies tingling Neuro Denies dizziness, Denies headache(s), Denies numbness, Denies tingling and Denies weakness Psych Denies anxiety and Denies depression Endo Denies fatigue Aller/Immun Denies wheezing Physical exam (Primary Care) Vital Signs: Last Vital Signs Temp 98.8 F 04/16/24 16:25 Pulse 92 04/16/24 16:25 Resp 16 04/16/24 16:25 BP 148/65 H 04/16/24 16:25 Pulse Ox 96 04/16/24 16:25 Oxygen Delivery Method Room Air 04/16/24 16:25 BMI result Body Mass Index 44.5 Tobacco/Smoking Status: Tobacco use Status Tobacco use date assessed 09/11/23 04/16/24 16:28 Patient Tobacco Use Status Never used Tobacco 04/16/24 16:28 e-Cigarette/Vaping Use Never Used 04/16/24 16:28 PHQ-9: PHQ-9 Score PHQ-9: Total score 3 04/16/24 16:49 Thrive Assessment: Date of Thrive Assessment Date Thrive assessed 09/11/23 04/16/24 16:28 Currently or been in a relationship where the following occur: No concerns reported Const General: well developed; No acute distress Nutritional Appearance: well nourished and obese morbidly obese Orientation/consciousness: patient oriented x3 HENMT Head: Yes normocephalic and Yes atraumatic Eyes General: appearance normal, both eyes and all related structures Pupils: Equal, round and reactive pupils present EOM: EOMs intact bilaterally Resp Effort & Inspection: normal respiratory effort Neuro General: patient oriented x3 and gait normal Cranial nerves: Yes Equal, round and reactive pupils present Psych Affect: normal affect Coding Level of Care Code Est Pt Level 3 (05352) Diagnoses Hypertension I10 Hyperlipidemia E78.5 Back pain M54.9 Vertigo R42 Assessment & Plan Assessment & Plan (1) Hypertension: Code(s): I10 - Essential (primary) hypertension Category: Medical Plan: Blood?pressure?is?still?not?controlled?but?she?notes adverse?effects?from?this?losartan. Will?try?hydrochlorothiazide Hydrate?well (2) Hyperlipidemia: Code(s): E78.5 - Hyperlipidemia, unspecified Category: Medical Plan: Check labs (3) Back pain: Code(s): M54.9 - Dorsalgia, unspecified Category: Medical Plan: Patient?has?low?back?pain?that?radiates?into?left?buttock,?lateral?hip?and?anterior?leg?down?to?perdue Start?physical?therapy Use?naproxen If?not?improving?would?consider?imaging?and?referral (4) Vertigo: Code(s): R42 - Dizziness and giddiness Category: Medical Plan: Vertigo?with?head?movements.??TMs?look?normal Hydrate?well Sending?a?script?for?meclizine If?not?improving?she?will?start?vestibular?rehab Orders: Orders Comprehensive [place]. Panel Fast Today R74.01 - Elevation of levels of liver transaminase levels, Z00.00 - Encounter for general adult medical examination without abnormal findings PT Evaluation and Treatment Today M54.9 - Dorsalgia, unspecified PT Evaluation and Treatment Today R42 - Dizziness and giddiness Lipid Panel Today E78.00 - Pure hypercholesterolemia, unspecified, Z00.00 - Encounter for general adult medical examination without abnormal findings Medications: New hydrochlorothiazide 50 mg PO QAM 30 days 30 tabs 3RF meclizine 25 mg PO DAILY 30 days PRN 30 tabs 0RF motion sickness naproxen 500 mg PO BID 30 days PRN 60 tabs 0RF pain Discontinued losartan Discontinued Reason: Doctor's Order 50 mg PO DAILY 90 days 90 tabs 2RF
[2024-04-16 16:25] VITALS: BP 148/65; PULSE 92; RESP 16; TEMP 37.1; O2SAT 96; BMI 44.5
== END 2024-04-16 17:01 | disposition home or self-care (01) ==
PROVIDERS: PCP Family Medicine; Visit Provider Family Medicine
DX: I10 Essential (primary) hypertension (principal); E78.5 Hyperlipidemia, unspecified; M54.9 Dorsalgia, unspecified; R42 Dizziness and giddiness

== ENCOUNTER → 2024-04-16 16:11 | Outpatient (BNVA) | payer MEDICARE, SELFPAY | PROVIDERS: PCP Family Medicine; Visit Provider Family Medicine | DX: I10 Essential (primary) hypertension (principal); E78.5 Hyperlipidemia, unspecified; M54.9 Dorsalgia, unspecified; R42 Dizziness and giddiness | CPT/HCPCS: 96127; 99212 ==

== ENCOUNTER 2024-04-19 14:29 | Outpatient (REF) | payer MEDICARE, SELFPAY ==
[2024-04-19 14:47] LABS: MANUAL DIFF FLAG NO
[2024-04-19 15:07] LABS: Basophils Percent Auto 0.4 % (0-2); Eosinophils Absolute Auto 0.1 X10*3/uL (0.0-0.4); Eosinophils Percent Auto 1.8 % (0-4); Hematocrit 38.5 % (37.0-47.0); Hemoglobin 13.4 g/dl (12.0-16.0); Imm Gran Abs Auto 0.01 X10*3/uL (0.00-0.03); Imm Gran Pct Auto 0.1 % (0.0-0.4); Mean Corpuscular HGB Conc 34.8 g/dl (31.0-35.0); Mean Corpuscular Hemoglobin 31.8 pg (27.0-33.0); Mean Corpuscular Volume 91.4 fL (80.0-98.0); Mean Platelet Volume 9.7 fL (9.4-12.3); Monocytes Absolute Auto 0.6 X10*3/uL (0.1-1.2); Monocytes Percent Auto 8.4 % (2-11); Neutrophils Absolute Auto 3.6 x10*3/uL (2.0-8.3); Neutrophils Percent Auto 48.3 % (45-73); Platelet Count 194 X10*3/uL (160-400); Red Blood Count 4.21 X10*6/uL (4.20-5.50); White Blood Count 7.4 X10*3/uL (4.8-10.8)
[2024-04-19 15:24] LABS: Valproate 35.8 mcg/mL (50.0-100.0)
[2024-04-19 15:27] LABS: Alanine Aminotransferase 55 U/L (0-31); Alkaline Phosphatase 82 U/L (39-117); Anion Gap 10 (12-20); Aspartate Amino Transferase 36 U/L (5-31); Bilirubin Total 0.4 mg/dL (0.0-1.0); Blood Urea Nitrogen 14 mg/dL (9-16); Calcium 9.2 mg/dL (8.4-10.2); Carbon Dioxide 31 mmol/L (22-29); Chloride 106 mmol/L (96-108); Estimated Glomerular Filt Rate > 60; Glucose Random 100 mg/dL (60-115); Sodium 143 mmol/L (135-145); Total Protein 6.8 g/dL (6.5-8.0)
[2024-04-19 15:36] LABS: Estimated Average Glucose 111 mg/dL; Hemoglobin A1C 130.0575 umol/L; Hemoglobin A1c % 5.5 % (<6.0); Total Hemoglobin (HGBA1C) 3515.3564 umol/L
== END 2024-04-19 14:30 | disposition home or self-care (01) ==
LOC: HO.LAB 14:29
PROVIDERS: PCP Family Medicine; Visit Provider Nurse Practitioner Psychiatric/Mental Health
DX: Z79.899 Other long term (current) drug therapy (principal)
CPT/HCPCS: 36415; 80053; 80164; 83036; 85025

== ENCOUNTER 2024-04-23 13:17 | Outpatient (REF) | payer MEDICARE, SELFPAY ==
[2024-04-23 14:03] LABS: Alanine Aminotransferase 53 U/L (0-31); Albumin Level 4.2 g/dL (3.5-5.0); Alkaline Phosphatase 72 U/L (39-117); Anion Gap 9 (12-20); Aspartate Amino Transferase 35 U/L (5-31); Bilirubin Total 0.5 mg/dL (0.0-1.0); Blood Urea Nitrogen 14 mg/dL (9-16); Carbon Dioxide 31 mmol/L (22-29); Chloride 101 mmol/L (96-108); Cholesterol 244 mg/dL (<200); Estimated Glomerular Filt Rate > 60; Glucose Fasting 95 mg/dL (60-99); HDL Cholesterol 48 mg/dL (>40); LDL Cholesterol Calculated 172 mg/dL (<100); Potassium 4.3 mmol/L (3.3-5.1); Sodium 137 mmol/L (135-145); Triglycerides 120 mg/dL (<150)
[2024-04-23 14:51] LABS: Appearance Urine Clear; Color Urine Yellow; Glucose Urine UA Negative (Negative); Leukocyte Esterase Urine Small (1+) (Negative); Nitrite Urine Negative (Negative); PH 6.5 (5.0-9.0); Specific Gravity - Urine 1.015 (1.005-1.025); UMIC TRIGGER UA YES; Urine Blood Negative (Negative); Urine Ketones Negative (Negative); Urine Protein Negative (Neg-Trace)
[2024-04-23 15:04] LABS: Bacteria Urine None Seen (None Seen); Hyaline Casts Urine 0-2 /LPF (0-2); RBC Urine 0-2 /HPF (0-2); WBC Urine 0-5 /HPF (0-5)
== END 2024-04-23 13:18 | disposition home or self-care (01) ==
LOC: HO.LAB 13:17
PROVIDERS: PCP Family Medicine; Visit Provider Family Medicine
DX: Z00.00 Encounter for general adult medical examination without abnormal findings (principal); R74.01 Elevation of levels of liver transaminase levels; E78.00 Pure hypercholesterolemia, unspecified
CPT/HCPCS: 36415; 80053; 80061; 81001

== ENCOUNTER 2024-07-08 14:13 | Outpatient (AMB) | payer MEDICARE, SELFPAY ==
--- NOTE | 2024-07-08 15:09 | A.OFFPC_ITS ---
Vital Signs 07/08/24 15:12 Height 5 ft 4 in Weight 253 lb 2 oz BMI 43.4 BP 120/70 Blood Pressure Location Rt brachial Position Sitting Respiration 14 Pulse 90 Pulse Source Pulse Oximeter Temp 98.5 F Temp Source Oral Pulse Oximetry (%) 96 Oxygen Delivery Method Room Air Intake Visit Reasons: f/u hypertension - see comments Intake Note: F/U for B/P pt also states she is having lower back pain Allergies prochlorperazine [From COMPAZINE] Allergy (Severe, Verified 07/08/24 15:10) THROAT SWELLS benztropine [From COGENTIN] Allergy (Intermediate, Verified 07/08/24 15:10) RASH glucosamine [GLUCOSAMINE] Allergy (Intermediate, Verified 07/08/24 15:10) RASH latex [LATEX] Allergy (Intermediate, Verified 07/08/24 15:10) RED RASH,ITCHINESS Adhesive Bandages Allergy (Intermediate, Uncoded 02/12/24 13:59) rash Tobacco use date assessed: 09/11/23 Dental Screening Dental Screen Date: 09/11/23 HPI f/u hypertension - see comments HPI Details 69 y/o female presents to f/u hypertensi on, labs. Trialing hydrochlorothiazide. Blood pressure today 120/70, 90p. Last labs drawn 04/23/24. Reviewed labs with pt. Triglycerides 120. TC 244. LDL 172. HDL 48. Elevated liver enzymes - AST 35, ALT 53. PFSH Medical History Dysplasia of cervix, low grade (EYAD 1) Hx of ectopic Lumbar arthropathy Internal derangement of left knee Primary osteoarthritis of knees, bilateral Internal derangement of right knee Cholelithiasis Surgical History Hx of unilateral salpingectomy History of bilateral cataract extraction History of laparoscopic cholecystectomy LAP-BAND surgery status History of section Family History Father COPD (chronic obstructive pulmonary disease) Diabetes Kidney problem Mother CVD (cardiovascular disease) Son Depression H/O ETOH abuse Drug addiction Other Mental health disorder Substance use disorder Social History Housing: House Alcohol intake: current Alcohol intake frequency: holidays/special occasions only Patient Tobacco Use Status: Never used Tobacco e-Cigarette/Vaping Use: Never Used Second Hand Smoke Exposure: No service: No Current occupational status: employed and unemployed 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 Current occupational exposures/hazards: No Cognitive needs: No Hearing needs: No Vision needs: No Female Reproductive History Menstrual Age of Menarche: 13 Questionnaire PHQ-9 Over the last 2 weeks, how often have you been bothered by any of the following problems? 1. Little interest or pleasure in doing things: not at all 2. Feeling down, depressed, or hopeless: not at all 3. Trouble falling or staying asleep, or sleeping too much: not at all 4. Feeling tired or having little energy: not at all 5. Poor appetite or overeating: not at all 6. Feeling bad about yourself - or that you are a failure or have let yourself or your family down: not at all 7. Trouble concentrating on things, such as reading the newspaper or watching television: not at all 8. Moving or speaking so slowly that other people could have noticed. Or the opposite - being so fidgety or restless that you have been moving around a lot more than usual: not at all 9. Thoughts that you would be better off or of hurting yourself in some way: not at all Total score: 0 Source: Developed by Drs. Marcel Paige, Marion Schwartz, Ahmet Dunham and colleagues, with an educational harinder from [employer]. Thrive Questionnaire Date Thrive assessed: 09/11/23 I am a: Patient What is your living situation today?: I have a steady place to live Within the past 12 months, did the food you bought not last and you didn't have the money to get more?: Never true Within the past 12 months, did you worry whether your food would run out before you got money to buy more?: Never true Do you have trouble paying for medicines?: No Do you have trouble getting transportation to medical appointments?: No Do you have trouble paying your heating and electricity bill?: No Do you have trouble taking care of your child, family member or friend?: No Do you have trouble with day-to-day activities such as bathing, preparing meals, shopping, managing finances, etc.?: No Are you currently unemployed and looking for a job?: No Are you interested in more education?: Yes Please select the resources that you would like help with: None Currently or been in a relationship where the following occur: No concerns reported THRIVE Score: 0 AUDIT C Alcohol Use Questionnaire (AUDIT-C) 1. How often do you have a drink containing alcohol?: Monthly or less 2. How many drinks containing alcohol do you have on a typical day when you are drinking?: 1 or 2 3. How often do you have six or more drinks on one occasion?: Never Total Score: 1 CARLOS-7 AMB Questionnaire CARLOS-7 Date CARLOS - 7 assessed: 09/11/23 Feeling nervous, anxious, or on edge: 0 = Not at all Not being able to stop or control worryin = Not at all Worrying too much about different things: 0 = Not at all Trouble relaxin = Not at all Being so restless that it is hard to sit still: 0 = Not at all Becoming easily annoyed or irritable: 0 = Not at all Feeling afraid as if something awful might happen: 0 = Not at all Total CARLOS-7 score (0-4 normal; 5-9 mild; 10-14 moderate; 15-21 severe): 0 Source: Developed by Drs. Marcel Paige, Marion Schwartz, Ahmet Dunham and colleagues, with an educational harinder from [employer]. Review of Systems Const Denies chills, Denies fatigue, Denies fever(s), Denies headache(s) and Denies weakness ENT Denies dizziness and Denies headache(s) Card Denies dyspnea Resp Denies cough, Denies dyspnea, Denies wheezing and Denies other (shortness of breath) Musc Denies numbness and Denies tingling Neuro Denies dizziness, Denies headache(s), Denies numbness, Denies tingling and Denies weakness Psych Denies anxiety and Denies depression Endo Denies fatigue Aller/Immun Denies wheezing Physical exam (Primary Care) Vital Signs: Last Vital Signs Temp 98.5 F 07/08/24 15:12 Pulse 90 07/08/24 15:12 Resp 14 07/08/24 15:12 BP 120/70 07/08/24 15:12 Pulse Ox 96 01/30/25 15:12 Oxygen Delivery Method Room Air 07/08/24 15:12 BMI result Body Mass Index 43.4 Tobacco/Smoking Status: Tobacco use Status Tobacco use date assessed 09/11/23 07/08/24 15:19 Patient Tobacco Use Status Never used Tobacco 07/08/24 15:19 e-Cigarette/Vaping Use Never Used 07/08/24 15:19 PHQ-9: PHQ-9 Score PHQ-9: Total score 0 07/08/24 15:24 Thrive Assessment: Date of Thrive Assessment Date Thrive assessed 09/11/23 07/08/24 15:19 Currently or been in a relationship where the following occur: No concerns reported Const General: well developed; No acute distress Nutritional Appearance: well nourished Orientation/consciousness: patient oriented x3 HENMT Head: Yes normocephalic and Yes atraumatic Eyes General: appearance normal, both eyes and all related structures Pupils: Equal, round and reactive pupils present EOM: EOMs intact bilaterally Resp Effort & Inspection: normal respiratory effort Neuro General: patient oriented x3 and gait normal Cranial nerves: Yes Equal, round and reactive pupils present Psych Affect: normal affect Coding Level of Care Code Est Pt Level 4 (83464) Diagnoses Hypertension I10 Hyperlipidemia E78.5 Elevated liver enzymes R74.8 Hip pain M25.559 Assessment & Plan Assessment & Plan (1) Hypertension: Code(s): I10 - Essential (primary) hypertension Category: Medical Plan: Blood?pressure?is?controlled.??Goal?is?less?than?140/90 Stable (2) Hyperlipidemia: Code(s): E78.5 - Hyperlipidemia, unspecified Category: Medical Plan: Lipids?are?too?high Will?start?atorvastatin Continue?Zetia Recheck?lipids?at?next?visit (3) Elevated liver enzymes: Code(s): R74.8 - Abnormal levels of other serum enzymes Category: Medical Plan: Elevated?liver?enzymes?and?patient?is?morbidly?obese Has?been?using?Tylenol?for?right?posterolateral?hip?pain Check?liver?ultrasound Encouraged?weight?loss Hold?off?on?Tylenol-can?use?NSAIDs Work?at?good?hydration (4) Hip pain: Code(s): M25.559 - Pain in unspecified hip Category: Medical Plan: Posterolateral?right?hip?pain Pain?with?abduction?against?resistance Likely?gluteal?or?piriformis?strain Start?physical?therapy Check?x-ray Can?use?NSAIDs?as?above Orders: Orders US abdomen hill w elastography Today R74.01 - Elevation of levels of liver transaminase levels XR hip RT min 2V Today M25.559 - Pain in unspecified hip Lipid Panel Today E78.5 - Hyperlipidemia, unspecified, Z00.00 - Encounter for general adult medical examination without abnormal findings XR lumbar spine 2-3V Today M54.9 - Dorsalgia, unspecified PT Evaluation and Treatment Today M25.559 - Pain in unspecified hip Comprehensive [place]. Panel Fast Today R74.01 - Elevation of levels of liver transaminase levels, Z00.00 - Encounter for general adult medical examination without abnormal findings Referrals Medical Weight Management Referral Z68.41 - Body mass index [BMI] 40.0-44.9, adult Medications: New atorvastatin 20 mg PO BEDTIME 90 tabs 3RF 90 days
[2024-07-08 15:12] VITALS: BP 120/70; PULSE 90; RESP 14; TEMP 36.9; O2SAT 96; BMI 43.4
--- OUTSIDE RECORDS SUMMARY | 2024-07-08 18:02 | XMS_ITS | Patient Health Record ---
Author Organization [facility] Address [address] [place] [id number] Care Team Providers Care Field Worker Name Role Phone Whitney Pinzon DO Primary Care Provider Quintin Martinez Jr Unavailable [phone] ALLERGIES Allergen (clinical drug ingredient) Drug/Non Drug Allergy documented on EMR Reaction Allergy Type Onset Date Status Compazine Unknown Drug Allergy Active Latex Gloves Unknown Drug Allergy Acti ve Cogentin Unknown Drug Allergy Active REASON FOR REFERRAL No Information MEDICATIONS Medication SIG (Take, Route, Frequency, Duration) Notes Start Date End Date Status Centrum Orally Active Depakote ER Active Divalproex Sodium ER 500 MG TAKE 3 TABLET BY MOUTH EVERY EVENING Oral for 30 Active SOCIAL HISTORY Sex Assigned At : Social History Observation Description Sex Assigned At Unknown PROBLEMS Problem Type ICD Code Onset Dates Problem Status W/U Status Risk SNOMED Code Notes Problem Right upper quadrant pain (R10.11) Active confirmed 590923468 Problem Elevated liver function tests (R94.5) Active confirmed [id number] PLAN OF TREATMENT Future Test Test Name Order Date COLONOSCOPY 10/13/2013 Insurance Providers Payer Name Payer Address Payer Phone Subscriber Number Group Number Insured Name Patient Relationship to Insured Coverage Start Date Coverage End Date [facility] [address] [place] [phone] [id number] BACILIO CHAUDHRY Self - patient is the insured MEDICAL (GENERAL) HISTORY Medical History History ICD Code elevated Cholesterol degenerative joint disease Denies [place],DM,CVA,Lung disease,renal dise ase Surgical History Surgery Date(Month/Year) section x 2 2 ectopic ,status-post laparoto my cholecystectomy 01/04/2016
== END 2024-07-08 15:53 | disposition home or self-care (01) ==
PROVIDERS: PCP Family Medicine; Visit Provider Family Medicine
DX: I10 Essential (primary) hypertension (principal); E78.5 Hyperlipidemia, unspecified; R74.8 Abnormal levels of other serum enzymes; M25.559 Pain in unspecified hip

== ENCOUNTER → 2024-07-08 14:13 | Outpatient (BNVA) | payer MEDICARE, SELFPAY | PROVIDERS: PCP Family Medicine; Visit Provider Family Medicine | DX: I10 Essential (primary) hypertension (principal); E78.5 Hyperlipidemia, unspecified; R74.8 Abnormal levels of other serum enzymes; M25.551 Pain in right hip; M25.552 Pain in left hip | CPT/HCPCS: 99212 ==

== ENCOUNTER 2024-08-05 12:39 | Outpatient (REF) | payer MEDICARE, SELFPAY ==
--- NOTE | ~2024-08-05 | XR_ITS ---
CLINICAL HISTORY: M25.559 - Pain in unspecified hip 2 view right hip Comparison: CR - HIP RIGHT 2 VIEWS [id number] - 05/12/2014 01:06 PM EST Findings: The bones are intact. No significant arthritic change. The soft tissues are unremarkable. IUD is in the mid pelvis. IMPRESSION: No acute findings. This document has been electronically signed by: Reji Lee MD on 08/05/2024 19:44:03
--- NOTE | ~2024-08-05 | US_ITS ---
EXAMINATION: US ABDOMEN LIMITED WITH LIVER ELASTOGRAPHY HISTORY: R74.01 - Elevation of levels of liver transaminase levels TECHNIQUE: Real-time grayscale ultrasound imaging of the right upper quadrant was performed and images were reviewed. COMPARISON: Correlation is made with an unenhanced CT of the abdomen dated 06/19/2018. FINDINGS: Liver: The right lobe of the liver measures 16.2 cm in size. The left lobe of the liver measures 12.1 cm in size. The liver demonstrates increased echotexture, consistent with steatosis. No focal mass or intrahepatic biliary ductal dilatation is identified. There is normal hepatopedal flow in the portal vein. Ultrasound elastography of the liver was performed with 10 separate measurements of the liver parenchyma with the patient in the supine position. Measurements were obtained approximately 2 cm below Nancy's capsule and perpendicular to the capsule. Images are of satisfactory quality. The median shear wave velocity is 1.38 m/s. The interquartile range/median (IQR/median) is 0.31. Gallbladder and biliary tree: The gallbladder is unremarkable, without evidence of calculi, wall thickening, or pericholecystic fluid. There is no sonographic Mccurdy sign. The common bile duct is normal in caliber measuring 3 mm. Right Kidney: The right kidney measures 8.6 cm in length. The right kidney is unremarkable, without evidence of masses, hydronephrosis, or calculi. Pancreas: The pancreatic head, neck, and body are unremarkable. The pancreatic tail is obscured by bowel gas. Abdominal aorta and inferior vena cava: The visualized portions of the abdominal aorta and inferior vena cava are normal in caliber. There is no free fluid in the right upper quadrant. US/US abdomen hill w elastography IMPRESSION: Hepatomegaly and hepatic steatosis. The median shear wave velocity is 1.38 m/s, corresponding to a median liver stiffness of 5.83 kPa. The IQR/median value is 0.31. This is indicative of a poor quality data set, and the estimated liver stiffness may be unreliable. Findings are indicative of a low elastography value which rules out advanced chronic liver disease in asymptomatic patients. REFERENCE: Society of Radiologists in Ultrasound Liver Stiffness Thresholds (2020): LIVER STIFFNESS THRESHOLDS: *Shear wave velocity less than 1.3 m/s (Liver Stiffness equal or less than 5 kPa): High probability of being normal. *Shear wave velocity less than 1.7 m/s (Liver Stiffness less than 9 kPa): In the absence of other known clinical signs, rules out compensated advanced chronic liver disease. *Shear wave velocity between 1.7-2.1 m/s (Liver Stiffness 9-13 kPa): Suggestive of compensated advanced chronic liver disease but need further test for confirmation. *Shear wave velocity between 2.1-2.4 m/s (Liver Stiffness 13-17 kPa): Rules in compensated advanced chronic liver disease. *Shear wave velocity greater than 2.4 m/s (Liver Stiffness over 17 kPa): Suggestive of clinically significant portal hypertension. QUALITY OF DATA SET: *IQR/Median value equal or less than 0.15 implies a quality data set. *IQR/Median value over 0.15 implies a poor quality data set. SIGNIFICANT CHANGE FROM PRIOR EXAM: Significant change if liver stiffness measurement is 10% or greater from prior exam. OTHER CONSIDERATIONS: The stage of liver fibrosis may be overestimated in the setting of acute hepatitis, liver inflammation, elevated liver function tests, hepatic vascular congestion, obstructive cholestasis, non-fasting state, and infiltrative diseases such as amyloidosis and lymphoma. In some patients with NAFLD, the liver stiffness thresholds for compensated advanced chronic liver disease may be lower. In causes other than viral hepatitis and NAFLD, liver stiffness thresholds are not well established. Electronically signed by: Marcel Blank MD 08/05/2024 01:30 PM [facility]
--- NOTE | ~2024-08-05 | XR_ITS ---
CLINICAL HISTORY: M54.9 - Dorsalgia, unspecified 3 views lumbar spine Comparison: None Findings: Normal alignment. No acute fractures or dislocation. There is multiple level degenerative disc and facet change. IMPRESSION: No acute findings. This document has been electronically signed by: Reji Lee MD on 08/05/2024 19:24:48
[2024-08-05 14:41] LABS: Appearance Urine Cloudy; Color Urine Yellow; Glucose Urine UA Negative (Negative); Leukocyte Esterase Urine Moderate (2+) (Negative); Nitrite Urine Negative (Negative); PH 6.5 (5.0-9.0); Specific Gravity - Urine 1.025 (1.005-1.025); UMIC TRIGGER UA YES; Urine Blood Negative (Negative); Urine Ketones Trace mg/dL (Negative); Urine Protein Negative (Neg-Trace)
[2024-08-05 15:03] LABS: Bacteria Urine 1+ (None Seen); Hyaline Casts Urine 0-2 /LPF (0-2); RBC Urine 0-2 /HPF (0-2); Squamous Epithelial Cell Urine >20 /HPF (0-2)
--- OUTSIDE RECORDS SUMMARY | 2024-08-05 15:03 | XMS_ITS | Patient Health Record ---
Author Organization [facility] Address [address] [place] [id number] Care Team Providers Care Guitar Player Name Role Phone Whitney Pinzon DO Primary Care Provider Quintin Martinez Jr Unavailable [phone] ALLERGIES Allergen (clinical drug ingredient) Drug/Non Drug [...] Right upper quadrant pain (R10.11) Active confirmed [id number] Problem Elevated liver function tests (R94.5) Active confirmed [id number] PLAN OF TREATMENT Future Test Test Name Order Date COLONOSCOPY 10/13/2013 Insurance Providers Payer Name Payer Address Payer Phone Subscriber Number Group Number Insured Name Patient Relationship to Insured Coverage Start Date Coverage End Date [facility] [address] [place] [phone] [id number] BACILIO CHAUDHRY Self - patient is the insured MEDICAL (GENERAL) HISTORY Medical History History ICD Code elevated Cholesterol degenerative joint disease Denies [place],DM,CVA,Lung disease,renal dise ase Surgical History Surgery Date(Month/Year) section x 2 2 ectopic ,status-post laparoto my cholecystectomy 01/04/2016
== END 2024-08-05 12:40 | disposition home or self-care (01) ==
LOC: HO.US 12:39
PROVIDERS: PCP Family Medicine; Visit Provider Family Medicine
DX: M25.551 Pain in right hip (principal); R74.01 Elevation of levels of liver transaminase levels; M54.9 Dorsalgia, unspecified; Z97.5 Presence of (intrauterine) contraceptive device; R16.0 Hepatomegaly, not elsewhere classified; E88.89 Other specified metabolic disorders; Z00.00 Encounter for general adult medical examination without abnormal findings
CPT/HCPCS: 72100; 73502; 76705; 76981; 81001

== ENCOUNTER → 2024-08-05 12:44 | Outpatient (BNV) | payer MEDICARE, SELFPAY | PROVIDERS: PCP Family Medicine; Visit Provider Radiology Diagnostic Radiology | DX: R16.0 Hepatomegaly, not elsewhere classified (principal); K76.0 Fatty (change of) liver, not elsewhere classified; M25.551 Pain in right hip; M54.9 Dorsalgia, unspecified | CPT/HCPCS: 72100; 73502; 76705; 76981 ==

== ENCOUNTER 2024-08-13 12:38 | Outpatient (REF) | payer MEDICARE, SELFPAY ==
[2024-08-13 13:01] LABS: Appearance Urine Clear; Color Urine Yellow; Glucose Urine UA Negative (Negative); Leukocyte Esterase Urine Negative (Negative); Nitrite Urine Negative (Negative); Urine Blood Negative (Negative); Urine Ketones Negative (Negative); Urine Protein Negative (Neg-Trace)
[2024-08-13 13:36] LABS: Alanine Aminotransferase 64 U/L (0-31); Albumin Level 4.2 g/dL (3.5-5.0); Anion Gap 12 (12-20); Aspartate Amino Transferase 55 U/L (5-31); Bilirubin Total 0.5 mg/dL (0.0-1.0); Blood Urea Nitrogen 18 mg/dL (9-16); Calcium 9.7 mg/dL (8.4-10.2); Carbon Dioxide 31 mmol/L (22-29); Chloride 104 mmol/L (96-108); Cholesterol 234 mg/dL (<200); Estimated Glomerular Filt Rate 51; Glucose Fasting 100 mg/dL (60-99); HDL Cholesterol 46 mg/dL (>40); Potassium 4.5 mmol/L (3.3-5.1); Sodium 142 mmol/L (135-145); Total Protein 7.5 g/dL (6.5-8.0)
--- OUTSIDE RECORDS SUMMARY | 2024-08-13 14:11 | XMS_ITS | Patient Health Record ---
Author Organization [facility] Address [address] [place] [address] Care Team Providers Care Membership Correspondent Name Role Phone Whitney Pinzon DO Primary Care Provider Quintin Martinez Jr Unavailable Allergies Allergen (clinical drug ingredient) Drug/Non Drug Allergy documented on EMR Reaction Allergy Type Onset Date Status Compazine Unknown Drug Allergy Active Latex Gloves Unknown Drug Allergy Acti ve Cogentin Unknown Drug Allergy Active Reason For Referral No Information Medications Medication SIG (Take, Route, Frequency, Duration) Notes Start Date End Date Status Centrum Orally Active Depakote ER Active Divalproex Sodium ER 500 MG TAKE 3 TABLET BY MOUTH EVERY EVENING Oral for 30 Active Problems Problem Type SNOMED Code ICD Code Onset Dates Problem Status W/U Status Risk Notes Problem [id number] Right upper quadrant pain (R10.11) Active confirmed Problem [id number] Elevated liver function tests (R94.5) Active confirmed Plan Of Treatment Future Test Test Name Order Date COLONOSCOPY 10/13/2013 Insurance Providers Payer Name Payer Address Payer Phone Subscriber Number Group Number Insured Name Patient Relationship to Insured Coverage Start Date Coverage End Date [facility] [address] [place] [phone] [id number] RICHA BACILIO Self - patient is the insured Medical (General) History Medical History History ICD Code elevated Cholesterol degenerative joint disease Denies SC,DM,CVA,Lung disease,renal dise ase Surgical History Surgery Date(Month/Year) section x 2 2 ectopic ,status-post laparoto my cholecystectomy 01/04/2016
[2024-08-13 14:47] LABS: LDL Cholesterol Calculated 158 mg/dL (<100); Triglycerides 150 mg/dL (<150)
[2024-08-13 15:46] LABS: Alkaline Phosphatase 55 U/L (39-117)
== END 2024-08-13 12:39 | disposition home or self-care (01) ==
LOC: HO.10HDL 12:38
PROVIDERS: Visit Provider Family Medicine
DX: Z00.00 Encounter for general adult medical examination without abnormal findings (principal); R74.01 Elevation of levels of liver transaminase levels; E78.5 Hyperlipidemia, unspecified
CPT/HCPCS: 36415; 80053; 80061; 81003

== ENCOUNTER 2024-08-20 08:12 | Outpatient (AMB) | payer MEDICARE, SELFPAY ==
--- OUTSIDE RECORDS SUMMARY | 2024-08-20 08:18 | XMS_ITS | Patient Health Record ---
Author Organization [facility] Address [address] [place] [address] Care Team Providers Care Head Of Design Name Role Phone Whitney Pinzon DO Primary [...] Problem Status W/U Status Risk Notes Problem [id number] Right upper quadrant pain (R10.11) Active confirmed Problem [id number] Elevated liver function tests (R94.5) Active confirmed Plan Of Treatment Future Test Test Name Order Date COLONOSCOPY 10/13/2013 Insurance Providers Payer Name Payer Address Payer Phone Subscriber Number Group Number Insured Name Patient Relationship to Insured Coverage Start Date Coverage End Date [facility] [address] [place] [phone] [id number] BACILIO CHAUDHRY Self - patient is the insured Medical (General) History Medical History History ICD Code elevated Cholesterol degenerative joint disease Denies [place],DM,CVA,Lung disease,renal dise ase Surgical History Surgery Date(Month/Year) section x 2 2 ectopic ,status-post laparoto my cholecystectomy 01/04/2016
--- NOTE | 2024-08-20 10:00 | A.OFFVIS_ITS ---
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 BMI 42.3 Allergies prochlorperazine [From COMPAZINE] Allergy (Severe, Verified 08/20/24 10:03) THROAT SWELLS benztropine [From COGENTIN] Allergy (Intermediate, Verified 08/20/24 10:03) RASH glucosamine [GLUCOSAMINE] Allergy (Intermediate, Verified 08/20/24 10:03) RASH latex [LATEX] Allergy (Intermediate, Verified 08/20/24 10:03) RED RASH,ITCHINESS Adhesive Bandages Allergy (Intermediate, Uncoded 08/20/24 10:03) rash Medication List - Last Reconciled 08/20/24 by Ton Fleming MD albuterol sulfate 90 mcg/actuation 2 puffs inhalation Q4-6H PRN 30 days compr.stocking,knee,long,x-lrg 30-40?mmHg, daily?As directed, 999 days divalproex ER mg PO ezetimibe (Zetia) 10 mg PO DAILY 90 days ezetimibe (Zetia) 10 mg PO DAILY fluticasone propionate 50 mcg/actuation 1 spray intranasal DAILY hydrochlorothiazide 50 mg PO QAM 30 days ibuprofen 800 mg PO TID PRN lorazepam mg PO DAILY PRN miscellaneous medical supply depakote level as directed; nystatin 1 appl topical BID PRN 1 month omeprazole 20 mg PO DAILY quetiapine [id number] mg PO BEDTIME HPI 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 BMI 42.3: Details: Start time: 9.49amam, End time: 10.49am ?I spent 55 minutes speaking with the patient on the phone plus an additional 5 minutes reviewing and updating records for a total of 60 minutes HPI Comments Details: Previous weight loss efforts: Lap band and lap band removal, WW, Mediteranean diet, Keto diet, calorie counting Wakes up: 9am, Sleeps: 10.30pm Breakfast: occasionally at 9.30am (eggs, toast, yogurt) Lunch: 1pm (salad, meat and crackers, Orgain protein shake) Dinner: 6.30-7pm (chicken, pasta, rice, steak, potatoes) Snacks: 3pm (fruit), occasionally ice cream after dinner Exercise: none Beverages: Coffee: none, tea: 1 cup/d (plain), soda: rarely, juice: rarely, ETOH: 1/month PFSH Medical History (Updated 08/20/24 @ 10:12 by Ton Fleming MD) DJD (degenerative joint disease) Anxiety Bipolar 1 disorder Asthma Hypertension Morbid obesity Dysplasia of cervix, low grade (EYAD 1) Hx of ectopic Lumbar arthropathy Internal derangement of left knee Primary osteoarthritis of knees, bilateral Internal derangement of right knee Cholelithiasis Surgical History Hx of unilateral salpingectomy History of bilateral cataract extraction History of laparoscopic cholecystectomy LAP-BAND surgery status History of section Family History Father COPD (chronic obstructive pulmonary disease) Diabetes Kidney problem Mother CVD (cardiovascular disease) Son Depression H/O ETOH abuse Drug addiction Other Mental health disorder Substance use disorder Social History Housing: House Alcohol intake: current Alcohol intake frequency: holidays/special occasions only Patient Tobacco Use Status: Never used Tobacco e-Cigarette/Vaping Use: Never Used Second Hand Smoke Exposure: No service: No Current occupational status: employed and unemployed 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 Current occupational exposures/hazards: No Cognitive needs: No Hearing needs: No Vision needs: No Female Reproductive History Menstrual Age of Menarche: 13 Telehealth Telehealth Telehealth Platform: Telephone Location of provider rendering services: practice address Location of patient: address on file Patient Identification confirmed using: Name, : Yes Telehealth method: voice only Patient verbally consented to treatment: Yes Patient verbally consented to billing insurance company: Yes Patient informed of any privacy concerns related to visit: Yes Minutes spent on Phone/Video with Pt.: 60 Assessment & Plan Assessment & Plan (1) Morbid obesity: Code(s): E66.01 - Morbid (severe) obesity due to excess calories Category: Medical Plan: 1. Start the Ozempic when you get your body composition scale once a week. We discussed the potential side effects of Ozempic such as nausea, vomiting, abdominal pain, diarrhea and constipation and you will need to contact me if any of these symptoms occur or for any other new symptom you may experience 2. Nutritional counseling. Start with 2 ORGAIN protein shakes (ONE scoop EACH in 8oz low fat unsweetened almond milk each) at 10am-12pm and 1pm-3pm, 1 ORGAIN protein bar at 4pm-6pm, dinner at 7pm (10 forks of protein and 10 forks of salad/vegetables) AND one more protein bar after dinner at 8.30pm-10.30pm. So you do 2 protein shakes, 2 protein bars and one meal per day. Meal to include lean meat (beef, fish, pork, turkey, chicken), or kazakh yogurt, or egg whites, or beans with a salad with olive oil and fruits (berries, pears, apples, kiwi). Avoid salt, breads, potatoes, rice, pasta, desserts. 3. Each shake would be drunk slowly, like coffee in a period of 2 hours. 4. Cut each bar in 4 pieces and eat each piece in 30min ?to make each bar last 2 hours. 5. I emphasized the importance of measuring accurately the food portion and measure it when serving the food in plate 6. The meal portions include 10 full-size forks of meat and 10 full-size forks of salad. You always eat the meat portion but you can replace up to 5 forks for salad/vegetables with rice, potatoes or pasta, or a fruit ?if you like. The less you do it the better weight loss will be. 7. One full-size fork is what it can be scooped on the fork without falling aside and not what can be bit with the fork. Use regular forks like those you find in a typical restaurant. 8.? Please buy the body composition scale we discussed and send me weight measurements as soon as possible and then once a week. Always include your diet and exercise plan. 9. Start walking outside daily, tracking calories with a goal of 300 calories per day, daily. Goal is to burn 2000 calories per week on exercise, which means either 300 calories daily, or 400 calories 5 days per week, or 500 calories 4 days per week, or 650 calories 3 days per week. 10. The best choice would be to purchase a stationary bike, elliptical or treadmill at home that can track calories. Let me know if you do so I can give you an exercise plan. 11. Goal is to lose at least 1.5-2lbs per week 12. Goal to lose at least 10% of your weight, which is about 26lbs. Ultimate weight goal: 220lbs before surgery 13. Please follow the diet plan exactly without any change. If you don't like something about the plan or you feel hungry you need to communicate with me so I can help you revise the plan. You should not change the plan yourself Medications: New semaglutide (Ozempic) for 4 weeks 0.25 mg (0.368 mL) subcut QWEEK 3 mL 0RF E66.01 - Morbid (severe) obesity due to excess calories
[2024-08-20 10:48] VITALS: BMI 42.2
== END 2024-08-20 10:50 | disposition home or self-care (01) ==
LOC: HO.HBS 08:12
PROVIDERS: PCP Family Medicine; Visit Provider Surgery
DX: E66.813 Obesity, class 3 (principal); Z68.41 Body mass index [BMI] 40.0-44.9, adult
CPT/HCPCS: 99205

== ENCOUNTER → 2024-08-20 08:12 | Outpatient (BNVA) | payer MEDICARE, SELFPAY | PROVIDERS: PCP Family Medicine; Visit Provider Surgery ==

== ENCOUNTER 2024-09-03 13:21 | Outpatient (AMB) | payer MEDICARE, SELFPAY ==
--- NOTE | 2024-09-03 13:38 | A.OFFPC_ITS ---
Vital Signs 09/03/24 13:41 Height 5 ft 4 in Weight 246 lb 2 oz BMI 42.2 BP 130/70 Blood Pressure Location Rt brachial Position Sitting Respiration 14 Pulse 83 Pulse Source Pulse Oximeter Temp 99.1 F Temp Source Oral Pulse Oximetry (%) 97 Oxygen Delivery Method Room Air Intake Visit Reasons: f/u ultrasound, elevated liver enzymes Intake Note: patient is scheduled for ultrasound and lab review Executive Director Of Marketing Required: No Allergies prochlorperazine [From COMPAZINE] Allergy (Severe, Verified 09/03/24 13:40) THROAT SWELLS benztropine [From COGENTIN] Allergy (Intermediate, Verified 09/03/24 13:40) RASH glucosamine [GLUCOSAMINE] Allergy (Intermediate, Verified 09/03/24 13:40) RASH latex [LATEX] Allergy (Intermediate, Verified 09/03/24 13:40) RED RASH,ITCHINESS Adhesive Bandages Allergy (Intermediate, Uncoded 08/20/24 10:03) rash Medication List - Last Reconciled 09/03/24 by Kranthi Mosqueda MD albuterol sulfate 90 mcg/actuation 2 puffs inhalation Q4-6H PRN 30 days compr.stocking,knee,long,x-lrg 30-40?mmHg, daily?As directed, 999 days divalproex ER mg PO ezetimibe (Zetia) 10 mg PO DAILY 90 days ezetimibe (Zetia) 10 mg PO DAILY fluticasone propionate 50 mcg/actuation 1 spray intranasal DAILY hydrochlorothiazide 50 mg PO QAM 30 days ibuprofen 800 mg PO TID PRN lorazepam mg PO DAILY PRN miscellaneous medical supply depakote level as directed; nystatin 1 appl topical BID PRN 1 month omeprazole 20 mg PO DAILY quetiapine [id number] mg PO BEDTIME tirzepatide (weight loss) (Zepbound) 2.5 mg (0.5 mL) subcut QWEEK Tobacco use date assessed: 09/11/23 Dental Screening Dental Screen Date: 09/11/23 HPI f/u ultrasound, elevated liver enzymes HPI Details 69 y/o female presents to f/u liver enzy mes, HLD, R hip pain. Liver ultrasound, x-rays of lumbar spine and R hip ordered. Had started her on ertovastaitn. Labs drawn 08/13/24. Reviewed labs with pt. Elevated liver enzymes - AST 55, ALT 64. Triglycerides 150. TC 234. LDL improved from 172 to 158. HDL 46. [facility] Medical History (Updated 08/20/24 @ 10:12 by Ton Fleming MD) DJD (degenerative joint disease) Anxiety Bipolar 1 disorder Asthma Hypertension Morbid obesity Dysplasia of cervix, low grade (EYAD 1) Hx of ectopic Lumbar arthropathy Internal derangement of left knee Primary osteoarthritis of knees, bilateral Internal derangement of right knee Cholelithiasis Surgical History Hx of unilateral salpingectomy History of bilateral cataract extraction History of laparoscopic cholecystectomy LAP-BAND surgery status History of section Family History Father COPD (chronic obstructive pulmonary disease) Diabetes Kidney problem Mother CVD (cardiovascular disease) Son Depression H/O ETOH abuse Drug addiction Other Mental health disorder Substance use disorder Social History Housing: House Alcohol intake: current Alcohol intake frequency: holidays/special occasions only Patient Tobacco Use Status: Never used Tobacco e-Cigarette/Vaping Use: Never Used Second Hand Smoke Exposure: No service: No Current occupational status: employed and unemployed 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 Current occupational exposures/hazards: No Cognitive needs: No Hearing needs: No Vision needs: No Female Reproductive History Menstrual Age of Menarche: 13 Questionnaire Thrive Questionnaire Date Thrive assessed: 07/08/24 I am a: Patient What is your living situation today?: I have a steady place to live Within the past 12 months, did the food you bought not last and you didn't have the money to get more?: Never true Within the past 12 months, did you worry whether your food would run out before you got money to buy more?: Never true Do you have trouble paying for medicines?: No Do you have trouble getting transportation to medical appointments?: No Do you have trouble paying your heating and electricity bill?: No Do you have trouble taking care of your child, family member or friend?: No Do you have trouble with day-to-day activities such as bathing, preparing meals, shopping, managing finances, etc.?: No Are you currently unemployed and looking for a job?: No Are you interested in more education?: Yes Please select the resources that you would like help with: None Currently or been in a relationship where the following occur: No concerns reported THRIVE Score: 0 CARLOS-7 AMB Questionnaire CARLOS-7 Date CARLOS - 7 assessed: 09/11/23 Source: Developed by Drs. Marcel Paige, Marion Schwartz, Ahmet Dunham and colleagues, with an educational harinder from [employer]. Review of Systems Const Denies chills, Denies fatigue, Denies fever(s), Denies headache(s) and Denies weakness ENT Denies dizziness and Denies headache(s) Card Denies dyspnea Resp Denies cough, Denies dyspnea, Denies wheezing and Denies other (shortness of breath) Musc Denies numbness and Denies tingling Neuro Denies dizziness, Denies headache(s), Denies numbness, Denies tingling and Denies weakness Psych Denies anxiety and Denies depression Endo Denies fatigue Aller/Immun Denies wheezing Physical exam (Primary Care) Vital Signs: Last Vital Signs Temp 99.1 F 09/03/24 13:41 Pulse 83 09/03/24 13:41 Resp 14 09/03/24 13:41 BP 130/70 09/03/24 13:41 Pulse Ox 97 09/03/24 13:41 Oxygen Delivery Method Room Air 09/03/24 13:41 BMI result Body Mass Index 42.2 Tobacco/Smoking Status: Tobacco use Status Tobacco use date assessed 09/11/23 09/03/24 13:39 Patient Tobacco Use Status Never used Tobacco 09/03/24 13:39 e-Cigarette/Vaping Use Never Used 09/03/24 13:39 Thrive Assessment: Date of Thrive Assessment Date Thrive assessed 07/08/24 09/03/24 13:39 Currently or been in a relationship where the following occur: No concerns reported Const General: well developed; No acute distress Nutritional Appearance: well nourished and obese morbidly obese Orientation/consciousness: patient oriented x3 HENMT Head: Yes normocephalic and Yes atraumatic Eyes General: appearance normal, both eyes and all related structures Pupils: Equal, round and reactive pupils present EOM: EOMs intact bilaterally Resp Effort & Inspection: normal respiratory effort Neuro General: patient oriented x3 and gait normal Cranial nerves: Yes Equal, round and reactive pupils present Psych Affect: normal affect Coding Level of Care Code Est Pt Level 4 (56249) Diagnoses Morbid obesity E66.01 Elevated ALT measurement R74.01 Hyperlipidemia E78.5 Hypertension I10 Hip pain M25.559 Assessment & Plan Assessment & Plan (1) Morbid obesity: Code(s): E66.01 - Morbid (severe) obesity due to excess calories Category: Medical Plan: Ongoing?morbid?obesity.??Patient?had?been?seen?by?the?weight?management?program? but?she?not?think?she?wants?to?continue?with?them. Work?on?healthy?diet?with?decr eased?portion?sizes?and?increase?exercise?consistency. She?had?tried?to?get?a?GLP?1?medication?but her?insurance?would?not?cover?it. She?can?check?with?her?insurance?company?to?see?if?there?is?anythi ng?they?will?cover. (2) Elevated ALT measurement: Code(s): R74.01 - Elevation of levels of liver transaminase levels Category: Medical Plan: Liver?enzymes?still?elevated. Ultrasound?shows?hepatic?steatosis?and?hepatomegaly?but?no?compensated?heading matcher and assembler leann?advanced?liver?disease. Continue?good?hydration?and?work?at?weight?loss (3) Hyperlipidemia: Code(s): E78.5 - Hyperlipidemia, unspecified Category: Medical Plan: Cholesterol?levels?have?decreased?some Had?added?atorvastatin?to?her?Zetia?but?she?may?not?have?pick?this?up. Does?not?appear?to?be?taking?atorvastatin.??Recommended?she?pick?this?up?and?try ?it.??We?will?recheck?lipids?with?next?blood?draw. (4) Hypertension: Code(s): I10 - Essential (primary) hypertension Category: Medical Plan: Blood?pressure?is?controlled.??Goal?is?less?than?140/90 Continue?current?medication (5) Hip pain: Code(s): M25.559 - Pain in unspecified hip Category: Medical Plan: She?has?some?SI?joint?pain?and?also?right?greater?trochanteric?pain?which?may?be ?muscle?strain?or?a?trochanteric?bursitis. Start?physical?therapy Ice/heat If?not?improving?will?refer?to?ortho Orders: Orders Lipid Panel Today E78.00 - Pure hypercholesterolemia, unspecified, Z00.00 - Encounter for general adult medical examination without abnormal findings Levetiracetam Keppra Today F31.9 - Bipolar disorder, unspecified Comprehensive [place]. Panel Fast Today R74.8 - Abnormal levels of other serum enzymes, Z00.00 - Encounter for general adult medical examination without abnormal findings Medications: Refilled atorvastatin 20 mg PO BEDTIME 90 days 90 tabs 3RF E78.00 - Pure hypercholesterolemia, unspecified
[2024-09-03 13:41] VITALS: BP 130/70; PULSE 83; RESP 14; TEMP 37.3; O2SAT 97; BMI 42.2
== END 2024-09-03 14:05 | disposition home or self-care (01) ==
LOC: HO.HMCFM 13:22
PROVIDERS: PCP Family Medicine; Visit Provider Family Medicine
DX: R74.01 Elevation of levels of liver transaminase levels (principal); E66.01 Morbid (severe) obesity due to excess calories; Z68.41 Body mass index [BMI] 40.0-44.9, adult; E78.5 Hyperlipidemia, unspecified; I10 Essential (primary) hypertension; M25.551 Pain in right hip

== ENCOUNTER → 2024-09-03 13:21 | Outpatient (BNVA) | payer MEDICARE, SELFPAY | PROVIDERS: PCP Family Medicine; Visit Provider Family Medicine | DX: E66.01 Morbid (severe) obesity due to excess calories (principal); M25.551 Pain in right hip; E78.5 Hyperlipidemia, unspecified; R74.01 Elevation of levels of liver transaminase levels; I10 Essential (primary) hypertension; Z68.41 Body mass index [BMI] 40.0-44.9, adult | CPT/HCPCS: 99212 ==

== ENCOUNTER 2024-09-17 11:27 | Outpatient (REF) | payer MEDICARE, SELFPAY ==
--- OUTSIDE RECORDS SUMMARY | 2024-09-17 12:27 | XMS_ITS | Patient Health Record ---
Author Organization [facility] Address [address] [place] [address] Care Team Providers Care Park Activities Coordinator Name Role Phone Whitney Pinzon DO Primary [...] Problem Status W/U Status Risk Notes Problem [id number] Right upper quadrant pain (R10.11) Active confirmed Problem [id number] Elevated liver function tests (R94.5) Active confirmed Plan Of Treatment Future Test Test Name Order Date COLONOSCOPY 10/13/2013 Insurance Providers Payer Name Payer Address Payer Phone Subscriber Number Group Number Insured Name Patient Relationship to Insured Coverage Start Date Coverage End Date [facility] [address] [place] [phone] [id number] BACILIO CHAUDHRY Self - patient is the insured Medical (General) History Medical History History ICD Code elevated Cholesterol degenerative joint disease Denies SC,DM,CVA,Lung disease,renal dise ase Surgical History Surgery Date(Month/Year) section x 2 2 ectopic ,status-post laparoto my cholecystectomy 01/04/2016
[2024-09-22 17:29] LABS: Levetiracetam Keppra <2.0 mcg/mL (6.0-46.0)
== END 2024-09-17 11:28 | disposition home or self-care (01) ==
LOC: HO.10HDL 11:27
PROVIDERS: Visit Provider Family Medicine
DX: F31.9 Bipolar disorder, unspecified (principal); Z79.899 Other long term (current) drug therapy
CPT/HCPCS: 36415; 80177

== ENCOUNTER 2024-10-15 12:04 | Outpatient (AMB) | payer MEDICARE, SELFPAY ==
--- NOTE | 2024-10-15 12:12 | MHC.OFFWIV ---
Intake Vital Signs 10/15/24 12:14 Weight 239 lb BP 124/80 Blood Pressure Location Lt brachial Position Sitting Pulse 104 H Pulse Source Pulse Oximeter Temp 97.6 F Temp Source Oral Pulse Oximetry (%) 96 Oxygen Delivery Method Room Air Intake Visit Reasons: EP-cough, earache, chest congestion Intake Note: Patient here for cough, chest congestion, headaches and nausea that has been present for about 4-5 days. Patient Tobacco Use Status: Never used Tobacco Allergies prochlorperazine [From COMPAZINE] Allergy (Severe, Verified 10/15/24 12:19) THROAT SWELLS benztropine [From COGENTIN] Allergy (Intermediate, Verified 10/15/24 12:19) RASH glucosamine [GLUCOSAMINE] Allergy (Intermediate, Verified 10/15/24 12:19) RASH latex [LATEX] Allergy (Intermediate, Verified 10/15/24 12:19) RED RASH,ITCHINESS Adhesive Bandages Allergy (Intermediate, Uncoded 10/15/24 12:19) rash Do you need a note to return to daycare/school/sports/work: No HPI EP-cough, earache, chest congestion HPI Details This is a 69-year-old female patient who presents to the walk-in clinic today with a 5 day history of cough, Fever, nasal congestion, nausea, diarrhea, body aches. States her was recently ill with similar symptoms. His COVID was negative. Has taken some [id number] cold/ flu medication without relief. Has missed work due to illness. [facility] Medical History DJD (degenerative joint disease) Anxiety Bipolar 1 disorder Asthma Hypertension Morbid obesity Dysplasia of cervix, low grade (EYAD 1) Hx of ectopic Lumbar arthropathy Internal derangement of left knee Primary osteoarthritis of knees, bilateral Internal derangement of right knee Cholelithiasis Surgical History Hx of unilateral salpingectomy History of bilateral cataract extraction History of laparoscopic cholecystectomy LAP-BAND surgery status History of section Family History Father COPD (chronic obstructive pulmonary disease) Diabetes Kidney problem Mother CVD (cardiovascular disease) Son Depression H/O ETOH abuse Drug addiction Other Mental health disorder Substance use disorder Social History Housing: House Alcohol intake: current Alcohol intake frequency: holidays/special occasions only Patient Tobacco Use Status: Never used Tobacco e-Cigarette/Vaping Use: Never Used Second Hand Smoke Exposure: No service: No Current occupational status: employed and unemployed 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 Current occupational exposures/hazards: No Cognitive needs: No Hearing needs: No Vision needs: No Female Reproductive History Menstrual Age of Menarche: 13 Review of Systems Const All systems reviewed & are unremarkable except as noted in HPI and below Physical Exam Vital Signs: Last Vital Signs Temp 97.6 F 10/15/24 12:14 Pulse 104 H 10/15/24 12:14 BP 124/80 10/15/24 12:14 Pulse Ox 96 10/15/24 12:14 Oxygen Delivery Method Room Air 10/15/24 12:14 Const General: cooperative and ill appearing acutely Limitations: no limitations HEENT Head: Yes normal to inspection Ears: hearing grossly normal bilaterally and TM's normal bilaterally General nose exam: Normal external nose present and No nasal discharge present Face and sinus: Yes normal facial exam Mouth: Normal oral and palatal mucosa present Throat: Yes posterior oropharynx normal Resp Effort & Inspection: normal respiratory effort and Actively coughing Quality: dry Auscultation: clear to auscultation bilaterally Cardio Rate: regular rate Rhythm: regular rhythm Skin General skin exam: no rashes or lesions noted Extrem General: Yes capillary refill normal and Yes no clubbing, cyanosis or edema Psych Appearance: grossly normal Mental Status: mental status grossly normal Speech and movement: Normal speech and movement present Assessment & Plan Assessment & Plan (1) Upper respiratory virus: Code(s): J06.9 - Acute upper respiratory infection, unspecified Plan: Symptoms consistent with viral upper respiratory illness. COVID/flu/RSV swab was obtained today, and patient aware she will be notified of results once these are available. we discussed the self-limiting made nature of the symptoms/illnesses, and I have recommended conservative measures with rest, hydration, [id number] cold/ flu medication. I will prescribe benzonatate for cough. We reviewed indications and use of this medication. If she does not improve with time and conservative measures, she can return to the clinic for further evaluation. All questions were answered and patient verbalizes understanding and agrees to plan. Work note provided. Orders: Orders SARS-CoV2/FLU/RSV Today J06.9 - Acute upper respiratory infection, unspecified Medications: New benzonatate 100 mg PO BID 7 days PRN 14 caps 0RF cough R05.9 - Cough, unspecified Coding Level of Care Code Est Pt Level 4 (00728) Diagnoses Upper respiratory virus J06.9
[2024-10-15 12:14] VITALS: BP 124/80; PULSE 104; TEMP 36.4; O2SAT 96
== END 2024-10-15 13:07 | disposition home or self-care (01) ==
PROVIDERS: PCP Family Medicine; Visit Provider Nurse Practitioner Family
DX: J06.9 Acute upper respiratory infection, unspecified (principal)

== ENCOUNTER 2024-10-15 12:04 | Outpatient (REF) | payer MEDICARE, SELFPAY ==
--- OUTSIDE RECORDS SUMMARY | 2024-10-15 16:13 | XMS_ITS | Patient Health Record ---
Author Organization [facility] Address [address] [place] [address] Care Team Providers Care Rn First Assistant Name Role Phone Whitney Pinzon DO Primary [...] Problem Status W/U Status Risk Notes Problem [id number] Right upper quadrant pain (R10.11) Active confirmed Problem [id number] Elevated liver function tests (R94.5) Active confirmed Plan Of Treatment Future Test Test Name Order Date COLONOSCOPY 10/13/2013 Insurance Providers Payer Name Payer Address Payer Phone Subscriber Number Group Number Insured Name Patient Relationship to Insured Coverage Start Date Coverage End Date [facility] [address] [place] [phone] [id number] BACILIO CHAUDHRY Self - patient is the insured Medical (General) History Medical History History ICD Code elevated Cholesterol degenerative joint disease Denies [place],DM,CVA,Lung disease,renal dise ase Surgical History Surgery Date(Month/Year) section x 2 2 ectopic ,status-post laparoto my cholecystectomy 01/04/2016
[2024-10-15 17:16] LABS: Influenza A PCR NEGATIVE (Negative); Influenza B PCR NEGATIVE (Negative); Resp Syncy Virus RNA Qual PCR NEGATIVE (Negative); SARS COV2 PCR INHOUSE NEGATIVE (Negative)
== END 2024-10-15 12:05 | disposition home or self-care (01) ==
LOC: HO.LNP 12:04
PROVIDERS: PCP Family Medicine; Visit Provider Nurse Practitioner Family
DX: J06.9 Acute upper respiratory infection, unspecified (principal)
CPT/HCPCS: 0241U; 99212

== ENCOUNTER 2024-10-25 14:48 | Outpatient (AMB) | payer MEDICARE, SELFPAY ==
--- OUTSIDE RECORDS SUMMARY | 2024-10-25 14:52 | XMS_ITS | Patient Health Record ---
Author Organization [facility] Address [address] [place] [address] Care Team Providers Care Draw Furnace Tender Name Role Phone Whitney Pinzon DO Primary [...] Problem Status W/U Status Risk Notes Problem [id number] Right upper quadrant pain (R10.11) Active confirmed Problem [id number] Elevated liver function tests (R94.5) Active confirmed Plan Of Treatment Future Test Test Name Order Date COLONOSCOPY 10/13/2013 Insurance Providers Payer Name Payer Address Payer Phone Subscriber Number Group Number Insured Name Patient Relationship to Insured Coverage Start Date Coverage End Date [facility] [address] [place] [phone] [id number] BACILIO CHAUDHRY Self - patient is the insured Medical (General) History Medical History History ICD Code elevated Cholesterol degenerative joint disease Denies [place],DM,CVA,Lung disease,renal dise ase Surgical History Surgery Date(Month/Year) section x 2 2 ectopic ,status-post laparoto my cholecystectomy 01/04/2016
--- NOTE | 2024-10-25 15:34 | AM.OFFWIN_ITS ---
Intake Vital Signs 10/25/24 15:38 Weight 242 lb BP 142/80 H Blood Pressure Location Rt brachial Position Sitting Pulse 94 Pulse Source Pulse Oximeter Temp 98.8 F Temp Source Oral Pulse Oximetry (%) 99 Oxygen Delivery Method Room Air Intake Visit Reasons: PE Cough, nausea, dizzy, ear pain Intake Note: Patient here for cough, nausea and bilat ear pain that has been present for about 2 weeks. Patient Tobacco Use Status: Never used Tobacco Allergies prochlorperazine [From COMPAZINE] Allergy (Severe, Verified 10/25/24 15:38) THROAT SWELLS benztropine [From COGENTIN] Allergy (Intermediate, Verified 10/25/24 15:38) RASH glucosamine [GLUCOSAMINE] Allergy (Intermediate, Verified 10/25/24 15:38) RASH latex [LATEX] Allergy (Intermediate, Verified 10/25/24 15:38) RED RASH,ITCHINESS Adhesive Bandages Allergy (Intermediate, Uncoded 10/25/24 15:38) rash Do you need a note to return to daycare/school/sports/work: No HPI HPI Comments History of Present Illness Details 69 Y/O Female patient who presents to [facility] walk in clinic with c/o Cough, nausea and B/L ear pain associated with Dizziness for about 2 weeks. She was seen here back 10/15 and SARs was negative. She was given Benzonatate with no much relief. Pt reports subjective fevers at home. [facility] Medical History (Updated 10/25/24 @ 16:11 by Nanette Quintana NP) Cough DJD (degenerative joint disease) Anxiety Bipolar 1 disorder Asthma Hypertension Morbid obesity Dysplasia of cervix, low grade (EYAD 1) Hx of ectopic Lumbar arthropathy Internal derangement of left knee Primary osteoarthritis of knees, bilateral Internal derangement of right knee Cholelithiasis Surgical History Hx of unilateral salpingectomy History of bilateral cataract extraction History of laparoscopic cholecystectomy LAP-BAND surgery status History of section Family History Father COPD (chronic obstructive pulmonary disease) Diabetes Kidney problem Mother CVD (cardiovascular disease) Son Depression H/O ETOH abuse Drug addiction Other Mental health disorder Substance use disorder Social History Housing: House Alcohol intake: current Alcohol intake frequency: holidays/special occasions only Patient Tobacco Use Status: Never used Tobacco e-Cigarette/Vaping Use: Never Used Second Hand Smoke Exposure: No service: No Current occupational status: employed and unemployed 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 Current occupational exposures/hazards: No Cognitive needs: No Hearing needs: No Vision needs: No Female Reproductive History Menstrual Age of Menarche: 13 Review of Systems Const All systems reviewed & are unremarkable except as noted in HPI and below Physical Exam Vital Signs: Last Vital Signs Temp 98.8 F 10/25/24 15:38 Pulse 94 10/25/24 15:38 BP 142/80 H 10/25/24 15:38 Pulse Ox 99 10/25/24 15:38 Oxygen Delivery Method Room Air 10/25/24 15:38 Const General: no acute distress Nutritional Appearance: obese Orientation/consciousness: patient oriented x3 Resp Effort & Inspection: normal respiratory effort and able to speak in complete sentences Auscultation: clear to auscultation bilaterally, no crackles, no rales, no rhonchi and no wheezes Cardio Rhythm: regular rhythm Heart sounds: S1 normal heart sound present and S2 normal heart sound present Neuro General: patient oriented x3, gait normal and moves all extremities Psych Speech and movement: Normal speech and movement present Assessment & Plan Assessment & Plan (1) Cough: Code(s): R05.9 - Cough, unspecified Qualifiers: Cough type: subacute Qualified Code(s): R05.2 - Subacute cough Plan: Ordered Z-pack and Prednisone. Do not take Z-pack together with Quetiapin. Plan Acetaminophne for pain and fever relief. Medications: New azithromycin DO NOT TAKE QUETIAPIN WITH AZITHYROMYCIN 500 mg PO DAILY 3 days 3 tabs 0RF R05.2 - Subacute cough prednisone 20 mg PO DAILY 5 days 5 tabs 0RF R05.2 - Subacute cough Coding Level of Care Code Est Pt Level 4 (73171) Diagnoses Subacute cough R05.2 Cough type: subacute Time Spent (min) 20
[2024-10-25 15:38] VITALS: BP 142/80; PULSE 94; TEMP 37.1; O2SAT 99
== END 2024-10-25 16:12 | disposition home or self-care (01) ==
PROVIDERS: PCP Family Medicine; Visit Provider Nurse Practitioner Family
DX: R05.2 Subacute cough (principal)

== ENCOUNTER → 2024-10-25 14:48 | Outpatient (BNVA) | payer MEDICARE, SELFPAY | PROVIDERS: PCP Family Medicine; Visit Provider Nurse Practitioner Family | DX: R05.2 Subacute cough (principal) | CPT/HCPCS: 99212 ==

== ENCOUNTER 2024-12-24 11:35 | Outpatient (REF) | payer MEDICARE, SELFPAY ==
[2024-12-24 11:53] LABS: MANUAL DIFF FLAG NO
--- OUTSIDE RECORDS SUMMARY | 2024-12-24 11:58 | XMS_ITS | Clinical Summary ---
Author Organization [facility] Address [address] [place] [address] Phone Care Team Providers Care Jet Man Name Role Phone Unknown, Unknown Primary Care Provider Unavai lable Medications quetiapine fumarate (SEROQUEL ORAL) Active divalproex sodium (DEPAKOTE ORAL) Acti ve Family History Medical History Relation Comments CV disease Father 2 CV disease Mother 2 Relation Status Comments Father 1 Father 2 Mother 1 Mother 2 Social History Tobacco Use Types Packs/Day Years Used Date Smoking Tobacco: Never Assessed Education Answer Date Recorded Are you interested in more education? Not on oralia e 10/04/2022 Are you concerned about learning? Not on file 10/04/2022 No 10/04/2022 No 10/04/2022 Digital Access Answer Date Recorded No 11/04/2022 No 11/04/2022 No 11/04/2022 Reliable internet access at home? Not on file 11/04/2022 Device with a working camera? Not on file Comments Unknown Sex and Gender Information Value Date Recorded Sex Assigned at Not on file Legal Sex Female 9:33 PM EDT Gender Identity Not on file Sexual Orientation Not on file Last Filed Vital Signs Vital Sign Reading Time Taken Comments Blood Pressure - - Pulse - - Temperature - - Respiratory Rate - - Oxygen Saturation - - Inhaled Oxygen Concentration - - Weight 106.6 kg (235 lb) 09/22/2015 2:18 AM EDT Height 162.6 cm (5' 4 ) 09/22/2015 2:18 AM EDT Body Mass Index 40.34 09/22/2015 2:18 AM EDT Plan of Treatment Not on file Medical Devices Not on file Insurance [address] [place], [place] [address] [place], [place] [address] [place], [place] [address] [address] [address] [place], [place] [address] Care Teams Jet Man Relationship Specialty Start Date End Date Unknown, Unknown, PCP - General 01/12/15 Additional Source Comments The information contained in this document represents components of the legal health record. It is not the complete legal health record.[facility]
--- OUTSIDE RECORDS SUMMARY | 2024-12-24 11:58 | XMS_ITS | Patient Health Record ---
Author Organization [facility] Address [address] [place] [address] Care Team Providers Care Textile Bag Sewer Name Role Phone Whitney Pinzon DO Primary [...] Problem Status W/U Status Risk Notes Problem [id number] Right upper quadrant pain (R10.11) Active confirmed Problem [id number] Elevated liver function tests (R94.5) Active confirmed Plan Of Treatment Future Test Test Name Order Date COLONOSCOPY 10/13/2013 Insurance Providers Payer Name Payer Address Payer Phone Subscriber Number Group Number Insured Name Patient Relationship to Insured Coverage Start Date Coverage End Date [facility] [address] [place] [address] [id number] BACILIO CHAUDHRY Self - patient is the insured Medical (General) History Medical History History ICD Code elevated Cholesterol degenerative joint disease Denies [place],DM,CVA,Lung disease,renal dise ase Surgical History Surgery Date(Month/Year) section x 2 2 ectopic ,status-post laparoto my cholecystectomy 01/04/2016
[2024-12-24 12:11] LABS: Hematocrit 39.6 % (37.0-47.0); Hemoglobin 13.3 g/dl (12.0-16.0); Imm Gran Abs Auto 0.01 X10*3/uL (0.00-0.03); Imm Gran Pct Auto 0.2 % (0.0-0.4); Lymphocytes Absolute Auto 2.6 X10*3/uL (1.2-4.9); Mean Corpuscular HGB Conc 33.6 g/dl (31.0-35.0); Mean Corpuscular Hemoglobin 31.2 pg (27.0-33.0); Mean Corpuscular Volume 93.0 fL (80.0-98.0); NRBC Abs Auto 0.000 X10*3/uL (0.0-0.012); NRBC Pct Auto 0.0 /100WBC (0.0-0.2); Platelet Count 188 X10*3/uL (160-400); Red Blood Count 4.26 X10*6/uL (4.20-5.50); White Blood Count 5.7 X10*3/uL (4.8-10.8)
[2024-12-24 12:28] LABS: Hemoglobin A1C 127.2831 umol/L; Total Hemoglobin (HGBA1C) 3444.6088 umol/L
[2024-12-24 12:46] LABS: Alanine Aminotransferase 34 U/L (0-31); Albumin Level 4.3 g/dL (3.5-5.0); Alkaline Phosphatase 55 U/L (39-117); Anion Gap 10 (12-20); Aspartate Amino Transferase 35 U/L (5-31); Blood Urea Nitrogen 14 mg/dL (9-16); Calcium 9.2 mg/dL (8.4-10.2); Carbon Dioxide 29 mmol/L (22-29); Chloride 108 mmol/L (96-108); Cholesterol 154 mg/dL (<200); Estimated Glomerular Filt Rate 56; HDL Cholesterol 48 mg/dL (>40); Potassium 4.7 mmol/L (3.3-5.1); Sodium 142 mmol/L (135-145); Total Protein 6.8 g/dL (6.5-8.0); Triglycerides 94 mg/dL (<150)
== END 2024-12-24 11:36 | disposition home or self-care (01) ==
LOC: HO.LAB 11:35
PROVIDERS: PCP Nurse Practitioner Family; Visit Provider Nurse Practitioner Psychiatric/Mental Health
DX: Z79.899 Other long term (current) drug therapy (principal)
CPT/HCPCS: 36415; 80053; 80061; 80164; 83036; 85025

== ENCOUNTER 2025-02-10 11:16 | Outpatient (REF) | payer MEDICARE, SELFPAY ==
[2025-02-10 18:47] LABS: Alanine Aminotransferase 39 U/L (0-31); Albumin Level 4.4 g/dL (3.5-5.0); Alkaline Phosphatase 58 U/L (39-117); Anion Gap 11 (12-20); Aspartate Amino Transferase 37 U/L (5-31); Blood Urea Nitrogen 16 mg/dL (9-16); Calcium 9.0 mg/dL (8.4-10.2); Carbon Dioxide 28 mmol/L (22-29); Chloride 106 mmol/L (96-108); Cholesterol 181 mg/dL (<200); Estimated Glomerular Filt Rate 55; HDL Cholesterol 44 mg/dL (>40); Potassium 4.4 mmol/L (3.3-5.1); Sodium 141 mmol/L (135-145); Total Protein 7.0 g/dL (6.5-8.0); Triglycerides 104 mg/dL (<150)
== END 2025-02-10 11:17 | disposition home or self-care (01) ==
LOC: HO.WFDLDS 11:16
PROVIDERS: PCP Family Medicine; Visit Provider Family Medicine
DX: Z00.00 Encounter for general adult medical examination without abnormal findings (principal); E78.00 Pure hypercholesterolemia, unspecified; L65.9 Nonscarring hair loss, unspecified; R74.8 Abnormal levels of other serum enzymes; R74.01 Elevation of levels of liver transaminase levels; E78.5 Hyperlipidemia, unspecified; R42 Dizziness and giddiness; I10 Essential (primary) hypertension; Z79.52 Long term (current) use of systemic steroids; Z79.899 Other long term (current) drug therapy
CPT/HCPCS: 36415; 80053; 80061; 84443; 99212

== ENCOUNTER 2025-02-10 11:16 | Outpatient (AMB) | payer MEDICARE, SELFPAY ==
--- NOTE | 2025-02-10 11:17 | A.OFFPC_ITS ---
Vital Signs 02/10/25 11:25 Height 5 ft 4 in Weight 242 lb BMI 41.5 BP 149/69 H Blood Pressure Location Lt brachial Position Sitting Respiration 16 Pulse 86 Pulse Source Pulse Oximeter Temp 98.5 F Temp Source Oral Pulse Oximetry (%) 96 Oxygen Delivery Method Room Air Intake Visit Reasons: f/u HTN, HLD, chronic conditions Intake Note: patient here for follow up on HTN, HLD and chronic condition Jewel Hole Cornerer Required: No Is last menstrual period known: No Post menopausal: No Patient : No Allergies prochlorperazine (From COMPAZINE) Allergy (Severe, Verified 02/10/25 11:21) THROAT SWELLS benztropine (From COGENTIN) Allergy (Intermediate, Verified 02/10/25 11:21) RASH glucosamine (GLUCOSAMINE) Allergy (Intermediate, Verified 02/10/25 11:21) RASH latex (LATEX) Allergy (Intermediate, Verified 02/10/25 11:21) RED RASH,ITCHINESS Adhesive Bandages Allergy (Intermediate, Uncoded 10/25/24 15:38) rash Medication List - Last Reconciled 02/10/25 by Kranthi Mosqueda MD albuterol sulfate 90 mcg/actuation 2 puffs inhalation Q4-6H PRN 30 days atorvastatin 20 mg PO BEDTIME 90 days azithromycin 500 mg PO DAILY 3 days compr.stocking,knee,long,x-lrg 30-40?mmHg, daily?As directed, 999 days divalproex ER mg PO ezetimibe (Zetia) 10 mg PO DAILY fluticasone propionate 50 mcg/actuation 1 spray intranasal DAILY hydrochlorothiazide 50 mg PO QAM 30 days ibuprofen 800 mg PO TID PRN lorazepam mg PO DAILY PRN miscellaneous medical supply depakote level as directed; nystatin 1 appl topical BID PRN 1 month omeprazole 20 mg PO DAILY prednisone 20 mg PO DAILY 5 days quetiapine [id number] mg PO BEDTIME Tobacco use date assessed: 02/10/25 Fall risk assessment: No Falls in past year Last assessed Fall Risk: 02/10/25 Dental Screening Dental Screen Date: 02/10/25 Did you have a dental visit in the last 12 months?: No Did you have a dental problem in the last 6 months where you did not have access to dental care?: No Was dental information given to patient?: No HPI f/u HTN, HLD, chronic conditions HPI Details 69 y/o female presents to f/u HTN, HLD, chronic conditions. Blood pressure today 149/69, 86p. She is on hydrochlorothiazide 50mg. Labs drawn 12/24/24. Reviewed labs with pt. Elevated liver enzymes - AST 35, ALT 34. Triglycerides 94. TC 154. LDL 88. HDL 48. She is on artovastatin. Has complaints of dizziness/spinning sensation that started about 3 days ago. Notes hx of vertigo. [facility] Medical History (Updated 02/10/25 @ 11:41 by Tin Mistry) Cough DJD (degenerative joint disease) Anxiety Bipolar 1 disorder Asthma Hypertension Morbid obesity Dysplasia of cervix, low grade (EYAD 1) Hx of ectopic Lumbar arthropathy Internal derangement of left knee Primary osteoarthritis of knees, bilateral Internal derangement of right knee Cholelithiasis Surgical History Hx of unilateral salpingectomy History of bilateral cataract extraction History of laparoscopic cholecystectomy LAP-BAND surgery status History of section Family History Father COPD (chronic obstructive pulmonary disease) Diabetes Kidney problem Mother CVD (cardiovascular disease) Son Depression H/O ETOH abuse Drug addiction Other Mental health disorder Substance use disorder Social History Housing: House Alcohol intake: current Alcohol intake frequency: holidays/special occasions only Patient Tobacco Use Status: Never used Tobacco e-Cigarette/Vaping Use: Never Used Second Hand Smoke Exposure: No service: No Current occupational status: employed and unemployed 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 Current occupational exposures/hazards: No Cognitive needs: No Hearing needs: No Vision needs: No Female Reproductive History Menstrual Age of Menarche: 13 Questionnaire Thrive Questionnaire Date Thrive assessed: 07/08/24 I am a: Patient What is your living situation today?: I have a steady place to live Within the past 12 months, did the food you bought not last and you didn't have the money to get more?: Never true Within the past 12 months, did you worry whether your food would run out before you got money to buy more?: Never true Do you have trouble paying for medicines?: No Do you have trouble getting transportation to medical appointments?: No Do you have trouble paying your heating and electricity bill?: No Do you have trouble taking care of your child, family member or friend?: No Do you have trouble with day-to-day activities such as bathing, preparing meals, shopping, managing finances, etc.?: No Are you currently unemployed and looking for a job?: No Are you interested in more education?: Yes Please select the resources that you would like help with: None Currently or been in a relationship where the following occur: No concerns reported THRIVE Score: 0 CARLOS-7 AMB Questionnaire CARLOS-7 Date CARLOS - 7 assessed: 09/11/23 Source: Developed by Drs. Marcel Paige, Marion Schwartz, Ahmet Dunham and colleagues, with an educational harinder from [employer]. Review of Systems Const Denies chills, Denies fatigue, Denies fever(s), Denies headache(s) and Denies weakness ENT Denies dizziness and Denies headache(s) Card Denies dyspnea Resp Denies cough, Denies dyspnea, Denies wheezing and Denies other (shortness of breath) Musc Denies numbness and Denies tingling Neuro Denies dizziness, Denies headache(s), Denies numbness, Denies tingling and Denies weakness Psych Denies anxiety and Denies depression Endo Denies fatigue Aller/Immun Denies wheezing Physical exam (Primary Care) Vital Signs: Last Vital Signs Temp 98.5 F 02/10/25 11:25 Pulse 86 02/10/25 11:25 Resp 16 02/10/25 11:25 BP 149/69 H 02/10/25 11:25 Pulse Ox 96 02/10/25 11:25 Oxygen Delivery Method Room Air 02/10/25 11:25 BMI result Body Mass Index 41.5 Tobacco/Smoking Status: Tobacco use Status Tobacco use date assessed 02/10/25 02/10/25 11:25 Patient Tobacco Use Status Never used Tobacco 02/10/25 11:20 e-Cigarette/Vaping Use Never Used 02/10/25 11:20 Thrive Assessment: Date of Thrive Assessment Date Thrive assessed 07/08/24 02/10/25 11:20 Currently or been in a relationship where the following occur: No concerns reported Const General: well developed; No acute distress Nutritional Appearance: well nourished and obese morbidly obese Orientation/consciousness: patient oriented x3 HENMT Head: Yes normocephalic and Yes atraumatic Eyes General: appearance normal, both eyes and all related structures Pupils: Equal, round and reactive pupils present EOM: EOMs intact bilaterally Resp Effort & Inspection: normal respiratory effort Neuro General: patient oriented x3 and gait normal Cranial nerves: Yes Equal, round and reactive pupils present Psych Affect: normal affect Coding Level of Care Code Est Pt Level 4 (74873) Diagnoses Hypertension I10 Hyperlipidemia E78.5 Elevated liver enzymes R74.8 Vertigo R42 Hair loss L65.9 Assessment & Plan Assessment & Plan (1) Hypertension: Code(s): I10 - Essential (primary) hypertension Category: Medical Plan: Blood pressure is again too high. Goal is less than 140/90 Changing hydrochlorothiazide to chlorthalidone (2) Hyperlipidemia: Code(s): E78.5 - Hyperlipidemia, unspecified Category: Medical Plan: Patient is now taking Zetia and atorvastatin. Cholesterol levels are all within normal range Continue current medications (3) Elevated liver enzymes: Code(s): R74.8 - Abnormal levels of other serum enzymes Category: Medical Plan: Liver enzymes much improved and nearly in normal range Encouraged good hydration Will recheck prior to next visit (4) Vertigo: Code(s): R42 - Dizziness and giddiness Category: Medical Plan: Patient notes history vertigo and has vertigo symptoms Orthostasis She does have nystagmus Has benefited from prednisone meclizine past and have sent a new script for these (5) Hair loss: Code(s): L65.9 - Nonscarring hair loss, unspecified Category: Medical Plan: Hair loss in 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 Orders: Orders TSH reflex Free T4 Today L65.9 - Nonscarring hair loss, unspecified, Z00.00 - Encounter for general adult medical examination without abnormal findings Comprehensive [place]. Panel Fast Today R74.01 - Elevation of levels of liver transaminase levels, Z00.00 - Encounter for general adult medical examination without abnormal findings Medications: New chlorthalidone 50 mg PO DAILY 90 tabs 3RF 90 days Refilled nystatin 1 appl topical BID PRN 15 grams 4RF rash 1 month prednisone 20 mg PO DAILY 5 tabs 0RF 5 days R05.2 - Subacute cough meclizine 25 mg PO DAILY PRN 30 tabs 0RF motion sickness 30 days meclizine 25 mg PO DAILY PRN 30 tabs 0RF motion sickness 30 days Discontinued hydrochlorothiazide Discontinued Reason: Doctor's Order 50 mg PO QAM 30 days 30 tabs 3RF
[2025-02-10 11:25] VITALS: BP 149/69; PULSE 86; RESP 16; TEMP 36.9; O2SAT 96; BMI 41.5
--- OUTSIDE RECORDS SUMMARY | 2025-02-10 12:56 | XMS_ITS | Clinical Summary ---
Author Organization [facility] Address [address] [place] [address] Phone Care Team Providers Care Contour Stitcher Name Role Phone Unknown, Unknown Primary Care [...] file Medical Devices Not on file Insurance [address] [place], [place] [address] [place], [place] [address] [place] [address] [address] [place], [place] [address] Care Teams Contour Stitcher Relationship Specialty Start Date End Date Unknown, Unknown, PCP - General 01/12/15 Additional Source Comments The information contained in this document represents components of the legal health record. It is not the complete legal health record.[facility]
--- OUTSIDE RECORDS SUMMARY | 2025-02-10 12:56 | XMS_ITS | Clinical Summary ---
Author Organization [facility] Address [address] [place] [address] Care Team Providers Care Margin Analyst Name Role Phone No, Pcp MD Primary Care Provider Unavailabl e Allergies Active Allergy Reactions Criticality Noted Date Comments Benztropine 12/23/2014 Glucosamine Analogues 12/23/2014 Medications buPROPion (WELLBUTRIN) 100 MG tablet Take 100 mg by mouth 2 (two) times a day. Active TOPIRAMATE (TOPAMAX ORAL) Take by mouth. Active CITALOPRAM HYDROBROMIDE (CELEXA ORAL) Take by mouth. Active Active Problems No known active problems Social History Tobacco Use Types Packs/Day Years Used Date Smoking Tobacco: Never Alcohol Use Standard Drinks/Week Comments No 0 (1 standard drink = 0.6 oz pur e alcohol) Comments Unknown Sex and Gender Information Value Date Recorded Sex Assigned at Not on file Legal Sex Female 11:15 AM EDT Gender Identity Not on file Sexual Orientation Not on file Last Filed Vital Signs Vital Sign Reading Time Taken Comments Blood Pressure 163/84 12/24/2014 2:09 AM EDT Pulse 95 12/24/2014 4:58 AM EDT Temperature 36.5 C (97.7 F) 12/24/2014 4:58 AM EDT Respiratory Rate 16 12/24/2014 4:58 AM EDT Oxygen Saturation 95% 12/24/2014 4:58 AM EDT Inhaled Oxygen Concentration - - Weight - - Height 162.6 cm (5' 4 ) 12/24/2014 2:09 AM EDT Body Mass Index - - Plan of Treatment Not on file Insurance [employer] Care Teams Margin Analyst Relationship Specialty Start Date End Date No, PcpMD No Address [place] [address] PCP - General 12/23/14
--- OUTSIDE RECORDS SUMMARY | 2025-02-10 12:56 | XMS_ITS | Patient Health Record ---
Author Organization [facility] Address [address] [place] [address] Care Team Providers Care Gm Mobile Name Role Phone Whitney Pinzon DO Primary [...] Problem Status W/U Status Risk Notes Problem [id number] Right upper quadrant pain (R10.11) Active confirmed Problem [id number] Elevated liver function tests (R94.5) Active confirmed Plan Of Treatment Future Test Test Name Order Date COLONOSCOPY 10/13/2013 Insurance Providers Payer Name Payer Address Payer Phone Subscriber Number Group Number Insured Name Patient Relationship to Insured Coverage Start Date Coverage End Date [facility] [address] [place] [phone] [id number] RICHA BACILIO Self - patient is the insured Medical (General) History Medical History History ICD Code elevated Cholesterol degenerative joint disease Denies VA,DM,CVA,Lung disease,renal dise ase Surgical History Surgery Date(Month/Year) section x 2 2 ectopic ,status-post laparoto my cholecystectomy 01/04/2016
--- OUTSIDE RECORDS SUMMARY | 2025-02-10 12:56 | XMS_ITS | Encounter Summary ---
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) Social History Tobacco Use Types Packs/Day Years Used Date Smoking Tobacco: Never Assessed Comments Unknown Sex and Gender Information Value Date Recorded Sex Assigned at Not on file Legal Sex Female 9:33 PM EDT Gender Identity Not on file Sexual Orientation Not on file documented as of this encounter Plan of Treatment Not on file documented as of this encounter Visit Diagnoses Diagnosis Dementia due to medical condition with behavioral disturbance- Primary documented in this encounter Care Teams Dirt Shoveler Relationship Specialty Start Date End Date Unknown, Unknown, PCP - General 01/12/15 documented as of this encounter Additional Source Comments The information contained in this document represents components of the legal health record. It is not the complete legal health record.[facility]
== END 2025-02-10 11:44 | disposition home or self-care (01) ==
LOC: HO.HMCFM 11:16
PROVIDERS: PCP Family Medicine; Visit Provider Family Medicine
DX: I10 Essential (primary) hypertension (principal); E78.5 Hyperlipidemia, unspecified; R74.8 Abnormal levels of other serum enzymes; R42 Dizziness and giddiness; L65.9 Nonscarring hair loss, unspecified

== ENCOUNTER 2025-02-11 14:22 | Outpatient (REF) | payer MEDICARE, SELFPAY ==
--- NOTE | ~2025-02-11 | MM_ITS ---
EXAMINATION: MM SCREENING DIGITAL BREAST TOMOSYNTHESIS, BILATERAL CLINICAL INFORMATION: Screening. Asymptomatic. COMPARISON: Mammography: Comparison is made with available priors TECHNIQUE: Digital breast mammography with tomosynthesis is performed in both the craniocaudal and mediolateral oblique views along with computer-aided detection (CAD). FINDINGS: There are scattered areas of fibroglandular density (ACR BI-RADS breast composition Category b). There are no significant masses, abnormal calcifications, or other abnormalities. MM/MM tomosynthesis screening BI IMPRESSION: No mammographic evidence of malignancy. ASSESSMENT: BI-RADS BI-RADS 1 - Negative RECOMMENDATION: Routine annual mammography screening. 1 year F/U This examination should not preclude the clinical evaluation of a suspicious palpable abnormality. This patient's information was entered into a reminder system with a target due date for their next mammogram. Electronically signed by: Mayi Howell DO 02/15/2025 11:06 AM EDT
--- OUTSIDE RECORDS SUMMARY | 2025-02-11 14:47 | XMS_ITS | Clinical Summary ---
Author Organization [facility] Address [address] [place] [id number] Phone Care Team Providers Care Special Education Teaching Assistant Name Role Phone Unknown, Unknown Primary Care [...] file Medical Devices Not on file Insurance [address] [place], [place] [id number] [place], [place] [address] [place] [place] [address] [place] [address] [place], [place] [address] Care Teams Special Education Teaching Assistant Relationship Specialty Start Date End Date Unknown, Unknown, PCP - General 01/12/15 Additional Source Comments The information contained in this document represents components of the legal health record. It is not the complete legal health record.[facility]
--- OUTSIDE RECORDS SUMMARY | 2025-02-11 14:47 | XMS_ITS | Patient Health Record ---
Author Organization [facility] Address [address] [place] [address] Care Team Providers Care Wildlife Protector Name Role Phone Whitney Pinzon DO Primary Care Provider Quintin Martinez Jr Unavailable [phone] Allergies Allergen (clinical drug ingredient) Drug/Non Drug [...] Problem Status W/U Status Risk Notes Problem [id number] Right upper quadrant pain (R10.11) Active confirmed Problem [id number] Elevated liver function tests (R94.5) Active confirmed Plan Of Treatment Future Test Test Name Order Date COLONOSCOPY 10/13/2013 Insurance Providers Payer Name Payer Address Payer Phone Subscriber Number Group Number Insured Name Patient Relationship to Insured Coverage Start Date Coverage End Date [facility] [address] [place] [phone] [id number] RICHA BACILIO Self - patient is the insured Medical (General) History Medical History History ICD Code elevated Cholesterol degenerative joint disease Denies AL,DM,CVA,Lung disease,renal dise ase Surgical History Surgery Date(Month/Year) section x 2 2 ectopic ,status-post laparoto my cholecystectomy 01/04/2016
--- OUTSIDE RECORDS SUMMARY | 2025-02-11 14:47 | XMS_ITS | Encounter Summary ---
Author Organization [facility] Address [address] [address] Phone Care Team Providers Care Reimbursement Counselor Name Role Phone Unknown, Unknown Primary Care Provider Angelina frank Encounter Details Date Type Department Care Team (Latest Contact Info) Description 01/12/2015 Transcribe Orders [facility] Radiology [address] [place] [address] Veronica Cabrera [address] [place] [address] [email or web address] Dementia due to medical condition with behavioral [...] Primary documented in this encounter Care Teams Reimbursement Counselor Relationship Specialty Start Date End Date Unknown, Unknown, PCP - General 01/12/15 documented as of this encounter Additional Source Comments The information contained in this document represents components of the legal health record. It is not the complete legal health record.[facility]
== END 2025-02-11 14:23 | disposition home or self-care (01) ==
LOC: HO.MAMMO 14:22
PROVIDERS: PCP Family Medicine; Visit Provider Family Medicine
DX: Z12.31 Encounter for screening mammogram for malignant neoplasm of breast (principal)
CPT/HCPCS: 77063; 77067

== ENCOUNTER → 2025-02-11 14:45 | Outpatient (BNV) | payer MEDICARE, SELFPAY | PROVIDERS: PCP Family Medicine; Visit Provider Internal Medicine | DX: Z12.31 Encounter for screening mammogram for malignant neoplasm of breast (principal) | CPT/HCPCS: 77063; 77067 ==

== ENCOUNTER 2025-02-28 13:17 | Outpatient (REF) | payer MEDICARE, SELFPAY ==
[2025-02-28 13:52] LABS: MANUAL DIFF FLAG NO
[2025-02-28 14:17] LABS: Hematocrit 39.7 % (37.0-47.0); Hemoglobin 14.0 g/dl (12.0-16.0); Imm Gran Abs Auto 0.02 X10*3/uL (0.00-0.03); Imm Gran Pct Auto 0.3 % (0.0-0.4); Lymphocytes Absolute Auto 3.0 X10*3/uL (1.2-4.9); Mean Corpuscular HGB Conc 35.3 g/dl (31.0-35.0); Mean Corpuscular Hemoglobin 31.9 pg (27.0-33.0); Mean Corpuscular Volume 90.4 fL (80.0-98.0); NRBC Abs Auto 0.000 X10*3/uL (0.0-0.012); NRBC Pct Auto 0.0 /100WBC (0.0-0.2); Platelet Count 207 X10*3/uL (160-400); Red Blood Count 4.39 X10*6/uL (4.20-5.50); White Blood Count 6.2 X10*3/uL (4.8-10.8)
[2025-02-28 14:22] LABS: Hemoglobin A1C 144.3479 umol/L; Total Hemoglobin (HGBA1C) 3548.7698 umol/L
[2025-02-28 14:56] LABS: Alanine Aminotransferase 34 U/L (0-31); Albumin Level 4.4 g/dL (3.5-5.0); Alkaline Phosphatase 56 U/L (39-117); Anion Gap 10 (12-20); Aspartate Amino Transferase 32 U/L (5-31); Blood Urea Nitrogen 12 mg/dL (9-16); Calcium 9.2 mg/dL (8.4-10.2); Carbon Dioxide 31 mmol/L (22-29); Chloride 106 mmol/L (96-108); Cholesterol 148 mg/dL (<200); Estimated Glomerular Filt Rate 58; HDL Cholesterol 40 mg/dL (>40); Potassium 4.7 mmol/L (3.3-5.1); Sodium 142 mmol/L (135-145); Total Protein 7.2 g/dL (6.5-8.0)
== END 2025-02-28 13:18 | disposition home or self-care (01) ==
LOC: HO.LAB 13:17
PROVIDERS: Visit Provider Nurse Practitioner Psychiatric/Mental Health
DX: Z79.899 Other long term (current) drug therapy (principal)
CPT/HCPCS: 36415; 80053; 80164; 82465; 83036; 83718; 85025

== ENCOUNTER 2025-05-16 09:37 | Outpatient (AMB) | payer MEDICARE, SELFPAY ==
[2025-05-16 09:41] VITALS: BP 136/88; PULSE 85; RESP 14; O2SAT 95; BMI 41.7
--- NOTE | 2025-05-16 09:41 | A.OFFPC_ITS ---
Vital Signs 05/16/25 09:41 Height 5 ft 4 in Weight 243 lb 4 oz BMI 41.7 BP 136/88 Blood Pressure Location Rt brachial Position Sitting Respiration 14 Pulse 85 Pulse Source Pulse Oximeter Pulse Oximetry (%) 95 Oxygen Delivery Method Room Air Intake Visit Reasons: f/u chronic conditions Intake Note: Follow up Product Marketing Intern Required: No Allergies prochlorperazine (From COMPAZINE) Allergy (Severe, Verified 05/16/25 09:43) THROAT SWELLS benztropine (From COGENTIN) Allergy (Intermediate, Verified 05/16/25 09:43) RASH glucosamine (GLUCOSAMINE) Allergy (Intermediate, Verified 05/16/25 09:43) RASH latex (LATEX) Allergy (Intermediate, Verified 05/16/25 09:43) RED RASH,ITCHINESS Adhesive Bandages Allergy (Intermediate, Uncoded 05/16/25 09:43) rash Medication List - Last Reconciled 05/16/25 by Kranthi Mosqueda MD albuterol sulfate 90 mcg/actuation 2 puffs inhalation Q4-6H PRN 30 days atorvastatin 20 mg PO BEDTIME 90 days chlorthalidone 50 mg PO DAILY 90 days compr.stocking,knee,long,x-lrg 30-40?mmHg, daily?As directed, 999 days divalproex ER mg PO ezetimibe (Zetia) 10 mg PO DAILY fluticasone propionate 50 mcg/actuation 1 spray intranasal DAILY ibuprofen 800 mg PO TID PRN lorazepam mg PO DAILY PRN meclizine 25 mg PO DAILY PRN 30 days miscellaneous medical supply depakote level as directed; nystatin 1 appl topical BID PRN 1 month omeprazole 20 mg PO DAILY quetiapine 200 - 400 mg PO BEDTIME Tobacco use date assessed: 05/16/25 Fall risk assessment: 1 Fall in past year Last assessed Fall Risk: 05/16/25 Dental Screening Dental Screen Date: 02/10/25 HPI f/u chronic conditions HPI Details 70 y/o female presents to f/u chronic co nditions. BP today 136/88, 85p. She is on chlorthalidone 50mg. Last labs drawn 02/28/25. Reviewed labs with pt. A1c 5.9%. Ongoing elevated liver enzymes - AST 32, ALT 34. Thyroid levels are fine. Has had issues with hair loss. Complaints of intermittent hip/back pain. Pt notes she had fallen recently and had hurt hip. HPI Comments History of Present Illness Details Documentation assistance for Kranthi Mosqueda MD, was provided by Tin Mistry, Typesetters Printer on 05/16/2025 at 10:13 AM EST. I, Dr. Mosqueda, have read, observed, and verified documentation. [facility] Medical History (Updated 05/16/25 @ 10:12 by Tin Mistry) Cough DJD (degenerative joint disease) Anxiety Bipolar 1 disorder Asthma Hypertension Morbid obesity Dysplasia of cervix, low grade (EYAD 1) Hx of ectopic Lumbar arthropathy Internal derangement of left knee Primary osteoarthritis of knees, bilateral Internal derangement of right knee Cholelithiasis Surgical History Hx of unilateral salpingectomy History of bilateral cataract extraction History of laparoscopic cholecystectomy LAP-BAND surgery status History of section Family History Father COPD (chronic obstructive pulmonary disease) Diabetes Kidney problem Mother CVD (cardiovascular disease) Son Depression H/O ETOH abuse Drug addiction Other Mental health disorder Substance use disorder Social History (Updated 05/16/25 @ 09:47 by Usha Coker CMA) Housing: House Alcohol intake: current Alcohol intake frequency: holidays/special occasions only Patient Tobacco Use Status: Never used Tobacco e-Cigarette/Vaping Use: Never Used Second Hand Smoke Exposure: No service: No Current occupational status: employed and unemployed 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 Current occupational exposures/hazards: No Cognitive needs: No Hearing needs: No Vision needs: No Female Reproductive History Menstrual Age of Menarche: 13 Questionnaire Thrive Questionnaire Date Thrive assessed: 07/08/24 I am a: Patient What is your living situation today?: I have a steady place to live Within the past 12 months, did the food you bought not last and you didn't have the money to get more?: Never true Within the past 12 months, did you worry whether your food would run out before you got money to buy more?: Never true Do you have trouble paying for medicines?: No Do you have trouble getting transportation to medical appointments?: No Do you have trouble paying your heating and electricity bill?: No Do you have trouble taking care of your child, family member or friend?: No Do you have trouble with day-to-day activities such as bathing, preparing meals, shopping, managing finances, etc.?: No Are you currently unemployed and looking for a job?: No Are you interested in more education?: Yes Please select the resources that you would like help with: None Currently or been in a relationship where the following occur: No concerns reported THRIVE Score: 0 AUDIT C Alcohol Use Questionnaire (AUDIT-C) 1. How often do you have a drink containing alcohol?: Monthly or less 2. How many drinks containing alcohol do you have on a typical day when you are drinking?: 1 or 2 3. How often do you have six or more drinks on one occasion?: Never Total Score: 1 CARLOS-7 AMB Questionnaire CARLOS-7 Date CARLOS - 7 assessed: 09/11/23 Source: Developed by Drs. Marcel Paige, Marion Schwartz, Ahmet Dunham and colleagues, with an educational harinder from [employer]. Review of Systems Const Denies chills, Denies fatigue, Denies fever(s), Denies headache(s) and Denies weakness ENT Denies dizziness and Denies headache(s) Card Denies chest pain, Denies lightheadedness, Denies dyspnea and Denies other (Palpitations) Resp Denies cough, Denies dyspnea, Denies wheezing and Denies other ( shortness of breath) Musc Reports back pain, Denies numbness and Denies tingling Neuro Denies dizziness, Denies headache(s), Denies numbness, Denies tingling, Denies paresthesias and Denies weakness Psych Denies anxiety and Denies depression Endo Denies fatigue Aller/Immun Denies wheezing Physical exam (Primary Care) Vital Signs: Last Vital Signs Pulse 85 05/16/25 09:41 Resp 14 05/16/25 09:41 BP 136/88 05/16/25 09:41 Pulse Ox 95 05/16/25 09:41 Oxygen Delivery Method Room Air 05/16/25 09:41 BMI result Body Mass Index 41.7 Tobacco/Smoking Status: Tobacco use Status Tobacco use date assessed 05/16/25 05/16/25 09:47 Patient Tobacco Use Status Never used Tobacco 05/16/25 09:47 e-Cigarette/Vaping Use Never Used 05/16/25 09:47 Thrive Assessment: Date of Thrive Assessment Date Thrive assessed 07/08/24 05/16/25 09:47 Currently or been in a relationship where the following occur: No concerns reported Const General: no acute distress and well developed Nutritional Appearance: well nourished Orientation/consciousness: patient oriented x3 [facility] Head: Yes normocephalic and Yes atraumatic Eyes General: appearance normal, both eyes and all related structures Pupils: Equal, round and reactive pupils present EOM: EOMs intact bilaterally Resp Effort & Inspection: normal respiratory effort Auscultation: clear to auscultation bilaterally Cardio Rate: regular rate Rhythm: regular rhythm Heart sounds: S1 normal heart sound present, S2 normal heart sound present, no gallops, no murmurs and no rubs Neuro General: patient oriented x3 and gait normal Cranial nerves: Yes Equal, round and reactive pupils present Psych Affect: normal affect Coding Level of Care Code Est Pt Level 4 (48432) Diagnoses Hypertension I10 Elevated liver enzymes R74.8 Hair loss L65.9 Back pain M54.9 Hip pain M25.559 Assessment & Plan Assessment & Plan (1) Hypertension: Code(s): I10 - Essential (primary) hypertension Category: Medical Plan: Blood pressure now controlled. Goal is less than 140/90 Continue to work at a diet low in salt/sodium Continue weight loss No change to current medication regimen (2) Elevated liver enzymes: Code(s): R74.8 - Abnormal levels of other serum enzymes Category: Medical Plan: Mildly elevated liver enzymes. Encouraged good hydration and weight loss Recent ultrasound of liver showed hepatic steatosis but no mass Elastography showed no advanced chronic liver disease Avoid alcohol and Tylenol Will continue to monitor (3) Hair loss: Code(s): L65.9 - Nonscarring hair loss, unspecified Category: Medical Plan: Patient had requested check of thyroid hormone level. TSH is within normal limits She would like a referral to Dermatology-referred (4) Back pain: Code(s): M54.9 - Dorsalgia, unspecified Category: Medical (5) Hip pain: Code(s): M25.559 - Pain in unspecified hip Category: Medical Plan Back and hip pain Patient has had some chronic right hip pain. More recently had a fall onto her back and left hip Will check x-rays of lumbar spine and bilateral hips. She had a mildly positive Trendelenburg sign - likely some weakness of hip abductors Start physical therapy Work on keeping low back and hip muscles strong Lightheadedness She notes this occurs only when she is standing still for a long period of time at work. Encouraged her to take breaks and move around. Also hydrate well. She will let me know if this continue Orders: Orders XR lumbar spine 2-3V Today M25.559 - Pain in unspecified hip XR hip LT min 2V Today M25.559 - Pain in unspecified hip PT Evaluation and Treatment Today M25.559 - Pain in unspecified hip XR hip RT min 2V Today M25.559 - Pain in unspecified hip Referrals Dermatology Referral L65.9 - Nonscarring hair loss, unspecified Medications: Refilled ibuprofen 800 mg PO TID PRN 270 tabs 1RF pain M23.92 - Unspecified internal derangement of left knee
== END 2025-05-16 10:25 | disposition home or self-care (01) ==
LOC: HO.HMCFM 09:39
PROVIDERS: PCP Family Medicine; Visit Provider Family Medicine
DX: I10 Essential (primary) hypertension (principal); R74.8 Abnormal levels of other serum enzymes; L65.9 Nonscarring hair loss, unspecified; M54.9 Dorsalgia, unspecified; M25.559 Pain in unspecified hip

== ENCOUNTER → 2025-05-16 09:37 | Outpatient (BNVA) | payer MEDICARE, SELFPAY | PROVIDERS: PCP Family Medicine; Visit Provider Family Medicine | DX: I10 Essential (primary) hypertension (principal); R74.8 Abnormal levels of other serum enzymes; L65.9 Nonscarring hair loss, unspecified; M54.9 Dorsalgia, unspecified; M25.551 Pain in right hip; M25.552 Pain in left hip | CPT/HCPCS: 99212 ==